=== PATIENT | female | born 1940 | race Caucasian/White ===

== ENCOUNTER 2019-04-18 08:56 | Emergency (ER) | payer MEDICARE, SELFPAY ==
[2019-04-18] VITALS (13 sets, daily range): BP systolic 129–186; BP diastolic 54–107; PULSE 59–70; RESP 12–18; TEMP 36.8; O2SAT 96–100
--- NOTE | ~2019-04-18 | CT_ITS ---
EXAMINATION: CT brain wo con EXAM DATE: 04/18/2019 12:23 INDICATION: High blood pressure, lightheadedness. TECHNIQUE: Spiral CT of the head was performed without contrast. Axial, coronal and sagittal images were reviewed. The dose-length product (DLP) for this examination was 605.33 mGy-cm. The exposure w as tailored according to patient size, and iterative reconstruction (ASIR) was used as additional dos e reduction technique. There is no prior study for comparison. FINDINGS: There is no acute intraparenchymal hemorrhage. No evidence of intraparenchymal brain mass lesion. No evidence of acute infarction. Please note that initial head CT has limited sensitivity f or small or acute infarctions. There is mild periventricular and subcortical hypodensity, nonspecific but probably related to small vessel ischemic disease. There is mild prominence of the sulci and v entricles related to cerebral atrophy. There is intracranial carotid arteriosclerosis. There are n o extra-axial collections. There is no mass effect or midline shift. The orbits are unremarkable. Soft tissue is unremarkable. Small amount of fluid in the right maxillary sinus with mild mucoperios teal thickening. IMPRESSION: 1. No acute intracranial findings. 2. Chronic age related findings. 3. Small amount of right maxillary mucoperiosteal thickening, fluid. Reviewed, dictated and finalized at location B. RATOR OPERATOR
--- NOTE | 2019-04-18 10:04 | ED.RECABL ---
HPI - Recheck/Abnormal Lab/Rx General Chief Complaint: Recheck/Abnormal Lab/Rx Stated Complaint: high blood pressure Time Seen by Provider: 04/18/19 10:01 Source: patient and RN notes reviewed Mode of arrival: ambulatory Limitations: no limitations History of Present Illness HPI narrative: Pt is a 79 y/o female presenting to the ED c/o HTN. Pt reports she has been experiencing HTN since last Thursday. Pt notes she normally has a BP of around 130 systolic, but states her BP this morning was 190 systolic. Pt states she does take medication for her BP and reports she takes it in the morning. Pt reports lightheadedness and frontal NEWTON described as pressure for 1 week, but denies nasal congestion, CP, SOB, rhinorrhea, or N/V. Pt states she has a Hx of allergies in which she has chronic post nasal drip, and notes she is taking Zyrtec and Singulair. Pt states she was instructed by her PCP to present to the ED. Pt notes she is has taken Tylenol for her NEWTON but notes it has not offered any relief. 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 Pt notes she has a Hx of stent placement 3 years ago, and notes she had a negative Echocardiogram 3 months ago. Initial visit (ago): week(s) (1) Description of abnormal result: BP 190 systolic this morning Associated symptoms: other (Lightheadedness; Frontal NEWTON) Related Data Home Medications Medication Instructions Recorded Confirmed albuterol sulfate 90 mcg/actuation 2 puff INHALATION Q4H PRN gm 01/11/19 aerosol inhaler aspirin 81 mg tablet,delayed 81 mg PO DAILY 01/11/19 release atenolol 50 mg tablet 50 mg PO DAILY 01/11/19 atorvastatin 40 mg tablet 40 mg PO DAILY 01/11/19 budesonide-formoterol HFA 160 2 puff INHALATION Q12H 01/11/19 mcg-4.5 mcg/actuation aerosol inhaler cetirizine 10 mg tablet 5 mg PO DAILY PRN 01/11/19 fluticasone propionate 50 See Rx Instructions NASAL DAILY 01/11/19 mcg/actuation nasal spray,suspension levothyroxine 137 mcg tablet 137 mcg PO DAILY 01/11/19 losartan 100 1 tablet PO DAILY 01/11/19 mg-hydrochlorothiazide 12.5 mg tablet montelukast 10 mg tablet 10 mg PO DAILY 01/11/19 potassium chloride 20 mEq 20 meq PO BID 01/11/19 tablet,extended release tiotropium bromide 1.25 2 puff INHALATION Q24H 01/11/19 mcg/actuation mist for inhalation Allergies Allergy/AdvReac Type Severity Reaction Status Date / Time alendronate sodium Allergy Unknown upset Verified 01/11/19 13:38 stomach erythromycin base Allergy Unknown Nausea Verified 01/11/19 13:38 Sulfa (Sulfonamide Allergy Unknown Pt does Verified 01/11/19 13:38 Antibiotics) not remember reaction Review of Systems Review of Systems: All systems reviewed & are unremarkable except as noted in HPI and below ENT: Denies nasal congestion and Denies other (Rhinorrhea) Cardiovascular: Cardiovascular: Denies chest pain and Reports lightheadedness Respiratory: Respiratory: Denies dyspnea Gastrointestinal: Gastrointestinal: Denies nausea and Denies vomiting Neurologic: Reports headache(s) (Frontal) [facility] Past Medical History Medical History Arthritis Asthma Bronchitis CAD (coronary artery disease) CVA (cerebral vascular accident) GERD (gastroesophageal reflux disease) History of angina HLD (hyperlipidemia) HTN (hypertension) Hypothyroid Myocardial infarction Surgical History Surgical History H/O cardiac catheterization H/O heart artery stent Family History Family History Father Family history of cardiovascular disease Mother Family history of cardiovascular disease Other Cerebrovascular accident Family history of allergic disorder Social History Social History Smoking status: Former smoker
--- NOTE | 2019-04-18 10:28 | ECG_ITS ---
Measurements Intervals [place] Rate: 65 P: 57 [place]: 171 QRS: 23 QRSD: 93 T: -19 QT: 397 QTc: 415 Interpretive Statements SINUS RHYTHM INFERIOR INFARCT, AGE INDETERMINATE BORDERLINE ST ABNORMALITY- ANTERIOR LEADS BASELINE ARTIFACT- I, II, AVR, AVL ABNORMAL ECG Electronically Signed On 04-19-2019 8:10:18 VERTICAL MILL OPERATOR by Nader Resendez D.O.
[2019-04-18 10:35] LABS: Basophils Percent Auto 0.4 % (0.2-1.2); Eosinophils Absolute Auto 0.5 K/mm3 (0-0.3); Eosinophils Percent Auto 6.6 % (0-4.4); Hematocrit 40.2 % (37.0-47.0); Hemoglobin 13.4 g/dL (12.0-15.0); Immature Granulocyte Absolute 0.02 K/mm3 (0.00-0.031); Immature Granulocyte Percent A 0.3 % (0-0.5); Lymphocytes Absolute Auto 1.57 K/mm3 (0.9-3.2); Lymphocytes Percent Auto 21.3 % (18.3-44.2); Mean Corpuscular HGB Conc 33.3 g/dl (32-36); Mean Corpuscular Hemoglobin 29.9 pg (26-34); Mean Corpuscular Volume 89.7 fl (80-100); Mean Platelet Volume 10.7 fl (7.4-10.4); Monocytes Absolute Auto 0.6 K/mm3 (0.1-0.6); Monocytes Percent Auto 8.4 % (2.6-8.5); Neutrophils Absolute Auto 4.7 K/mm3 (1.3-6.7); Platelet Count Result 242 k/mm3 (150-375); Red Blood Count 4.48 M/mm3 (4.2-5.4); Red Cell Distribution Width 12.8 % (11.5-14.5); White Blood Count 7.4 K/mm3 (4.5-10.0)
[2019-04-18 10:43] LABS: Alanine Aminotransferase 28 U/L (4-35); Albumin Level 4.2 g/dL (3.5-5.1); Alkaline Phosphatase 56 U/L (38-126); Aspartate Amino Transferase 35 U/L (14-36); Bilirubin,Total 0.8 mg/dL (0.2-1.3); Blood Urea Nitrogen 13 mg/dL (7-17); Calcium 10.3 mg/dL (8.4-10.2); Carbon Dioxide 27 mmol/L (22-30); Chloride 98 mmol/L (98-107); Estimated CRCL calculation 45 ml/min; Estimated Glomerular Filt Rate > 60; Glucose 106 mg/dL (65-105); Potassium 3.6 mmol/L (3.4-5.0); Sodium 137 mmol/L (137-145)
[2019-04-18] MEDS: KETOROLAC 15 MG/ML VIAL (*BKC) IV PUSH (11:00)
[2019-04-18] MEDS: SODIUM CHLORIDE 0.9% IV 500 ML 999 ML IV CONT (11:01)
--- NOTE | 2019-04-21 07:58 | PC.NURSE ---
LATE ENTRY This note is being entered to document information to the patient's record. The following information was omitted on 04/18/19, by Yvonne Marquez RN. NS stopped at 1100 by this RN.
== END 2019-04-18 13:55 | disposition home or self-care (01) ==
PROVIDERS: Emergency Provider General Practice; PCP Family Medicine
DX: I10 Essential (primary) hypertension (principal); Z95.5 Presence of coronary angioplasty implant and graft; Z79.82 Long term (current) use of aspirin; M19.90 Unspecified osteoarthritis, unspecified site; I25.10 Atherosclerotic heart disease of native coronary artery without angina pectoris; Z86.73 Personal history of transient ischemic attack (TIA), and cerebral infarction without residual deficits; K21.9 Gastro-esophageal reflux disease without esophagitis; E78.5 Hyperlipidemia, unspecified; E03.9 Hypothyroidism, unspecified; I25.2 Old myocardial infarction; Z87.891 Personal history of nicotine dependence; J32.9 Chronic sinusitis, unspecified; R94.31 Abnormal electrocardiogram [ECG] [EKG]
CPT/HCPCS: 36415; 70450; 80053; 85025; 93005; 96374; 96375; 99284; J1200; J1885; J7040

== ENCOUNTER 2019-11-24 09:57 | Outpatient (CLI) | payer MEDICARE, SELFPAY ==
--- NOTE | ~2019-11-24 | DEXA_ITS ---
Bone Density Report Name: Sharon Adair Age: 79 Sex: Female Ethnicity: White Date of : 1940 Indication: osteopenia; height loss; asthma or emphysema; Referring Provider: Eliud Horton Study: Bone densitometry was performed. Exam Date: November 24, 2019 Accession number: [id number] Bone Density: Region BMD T-score Z-score Classification AP Spine (L1-L4) 0.925 -1.1 1.4 Osteopenia Femoral Neck (Left) 0.661 -1.7 0.5 Osteopenia Total Hip (Left) 0.834 -0.9 1.1 Normal Total Hip Bilateral Avg 0.837 -0.8 1.1 Normal Femoral Neck (Right) 0.642 -1.9 0.3 Osteopenia Total Hip (Right) 0.839 -0.8 1.1 Normal World Health Organization criteria for BMD impression classify patients as: Normal (T-score at or above -1.0), Osteopenia (T-score between -1.0 and -2.5), or Osteoporosis (T-score at or below -2.5). 10-year Fracture Risk(1): Major Osteoporotic Fracture 14% Hip Fracture 3.4% Reported Risk Factors: [place] (), Neck BMD=0.642, BMI=30.1 (1) FRAX(R) Version 3.08. Fracture probability calculated for an untreated patient. Fracture probability may be lower if the patient has received treatment. Previous Exams: Region Exam Age BMD T-score BMD Change BMD Change Date g/cm2 vs Baseline vs Previous AP Spine(L1-L4) 11/24/2019 79 0.925 -1.1 -0.005(-0.5%)# -0.074(-7.4%)# 05/15/2017 77 0.998 -0.4 0.069(7.4%)# 0.005(0.5%)# 04/24/2015 75 0.994 -0.5 0.064(6.9%)# 0.031(3.2%)* 11/16/2012 72 0.963 -0.8 0.034(3.6%)# -0.014(-1.5%)# 04/16/2010 70 0.977 -0.6 0.048(5.1%)* 0.012(1.3%) 11/29/2007 67 0.965 -0.7 0.036(3.8%)* 0.037(4.0%)* 11/25/2005 65 0.928 -1.1 -0.002(-0.2%) 0.017(1.9%) 11/03/2003 63 0.911 -1.2 -0.019(-2.0%) -0.019(-2.0%) 09/06/2002 62 0.930 -1.1 Total Hip(Left) 11/24/2019 79 0.834 -0.9 0.062(8.0%)# -0.002(-0.3%)# 05/15/2017 77 0.836 -0.9 0.064(8.3%)# 0.008(0.9%)# 04/24/2015 75 0.829 -0.9 0.056(7.3%)# -0.058(-6.5%)* 11/16/2012 72 0.887 -0.5 0.114(14.8%)# 0.076(9.4%)# 04/16/2010 70 0.811 -1.1 0.038(4.9%)* 0.020(2.5%) 11/29/2007 67 0.791 -1.2 0.018(2.3%) -0.019(-2.4%) 11/25/2005 65 0.810 -1.1 0.037(4.8%)* 0.044(5.8%)* 11/03/2003 63 0.765 -1.4 -0.007(-0.9%) -0.007(-0.9%) 09/06/2002 62 0.772 -1.4 Total Hip(Right) 11/24/2019 79 0.839 -0.8 0.093(12.4%)# 0.029(3.6%)# 05/15/2017 77 0.810 -1.1 0.063(8.5%)# -0.022(-2.7%)# 04/24/2015 75 0.832 -0.9 0.085(11.4%)# -0.015(-1.7%) 11/16/2012 72 0.846 -0.8 0.100(13.4%)# 0.067(8.6%)# 04/16/2010 70 0.779 -1.3
--- NOTE | ~2019-11-24 | MM_ITS ---
EXAMINATION: MM screening [facility] BI w seamus HISTORY: Screening mammogram TECHNIQUE: Craniocaudal and mediolateral oblique 3-D tomosynthesis images were obtained and synthetic 2-D images were generated. CAD analysis was submitted and interpreted. COMPARISON: 05/15/2017, 05/01/2016, 12/15/2013 BREAST PARENCHYMAL COMPOSITION: The breasts are almost entirely fatty. FINDINGS: There is no evidence of suspicious mass, calcification, or architectural distortion to sugg est malignancy in either breast. There has been no suspicious interval change. IMPRESSION: 1. No mammographic evidence of malignancy. 2. Recommend routine screening mammography in one year. BI-RADS Category 1: Negative Reviewed, dictated and finalized at location A.
== END 2019-11-24 09:58 | disposition home or self-care (01) ==
LOC: ANHIMG 10:01
PROVIDERS: PCP Family Medicine; Visit Provider Family Medicine
DX: Z12.31 Encounter for screening mammogram for malignant neoplasm of breast (principal); M81.0 Age-related osteoporosis without current pathological fracture
CPT/HCPCS: 77063; 77067; 77080

== ENCOUNTER 2020-10-01 11:12 | Outpatient (CLI) | payer MEDICARE, SELFPAY ==
--- NOTE | ~2020-10-01 | XR_ITS ---
XR chest 2V DATE: 10/01/2020 14:44 INDICATION: Cough, congestion TECHNIQUE: PA and lateral views COMPARISON: 07/13/2016 portable AP chest FINDINGS: Cardiac megaly. No hilar or mediastinal enlargement. No pulmonary infiltrate or consolidati on, pleural effusion or pulmonary vascular congestion or pneumothorax. Diffuse osteopenia. There is thoracic kyphosis. There is mild loss of height and anterior wedging of some thoracic vertebrae, most pronounced at T7. Degenerative change of the lower thoracic spine is no isabel in particular. IMPRESSION: No active pulmonary disease Cardiomegaly, aortic atherosclerosis Osteopenia Reviewed, dictated and finalized at location A.
[2020-10-01 11:34] LABS: Basophils Percent Auto 0.4 % (0.2-1.2); Eosinophils Absolute Auto 0.7 K/mm3 (0-0.3); Eosinophils Percent Auto 7.1 % (0-4.4); Hematocrit 39.6 % (37.0-47.0); Hemoglobin 12.6 g/dL (12.0-15.0); Immature Granulocyte Absolute 0.04 K/mm3 (0.00-0.031); Immature Granulocyte Percent A 0.4 % (0-0.5); Lymphocytes Absolute Auto 1.44 K/mm3 (0.9-3.2); Lymphocytes Percent Auto 14.4 % (18.3-44.2); Mean Corpuscular HGB Conc 31.8 g/dl (32-36); Mean Corpuscular Hemoglobin 29.8 pg (26-34); Mean Corpuscular Volume 93.6 fl (80-100); Mean Platelet Volume 9.9 fl (7.4-10.4); Monocytes Absolute Auto 0.9 K/mm3 (0.1-0.6); Monocytes Percent Auto 8.8 % (2.6-8.5); Neutrophils Absolute Auto 6.9 K/mm3 (1.3-6.7); Neutrophils Percent Auto 68.9 % (45.5-73.1); Platelet Count Result 146 k/mm3 (150-375); Red Blood Count 4.23 M/mm3 (4.2-5.4); Red Cell Distribution Width 14.2 % (11.5-14.5)
== END 2020-10-01 11:13 | disposition home or self-care (01) ==
PROVIDERS: PCP Family Medicine; Visit Provider Family Medicine
DX: R05 Cough (principal); D72.829 Elevated white blood cell count, unspecified; I51.7 Cardiomegaly; I70.0 Atherosclerosis of aorta; M85.89 Other specified disorders of bone density and structure, multiple sites
CPT/HCPCS: 36415; 71046; 85025

== ENCOUNTER 2020-12-14 14:38 | Outpatient (CLI) | payer MEDICARE, SELFPAY ==
--- NOTE | ~2020-12-14 | MM_ITS ---
EXAMINATION: MM screening [facility] BI w seamus HISTORY: Screening mammogram TECHNIQUE: Craniocaudal and mediolateral oblique 3-D tomosynthesis images were obtained and synthetic 2-D images were generated. CAD analysis was submitted and interpreted. COMPARISON: 11/24/2019, 05/15/2017, 05/11/2016 by lateral digital screening mammogram examinations BREAST PARENCHYMAL COMPOSITION: The breasts are almost entirely fatty. FINDINGS: There is no evidence of suspicious mass, calcification, or architectural distortion to sugg est malignancy in either breast. There has been no suspicious interval change. IMPRESSION: 1. No mammographic evidence of malignancy. 2. Recommend routine screening mammography in one year. BI-RADS Category 1: Negative Reviewed, dictated and finalized at location A.
== END 2020-12-14 14:39 | disposition home or self-care (01) ==
LOC: ANHIMG 14:40
PROVIDERS: PCP Family Medicine; Visit Provider Family Medicine
DX: Z12.31 Encounter for screening mammogram for malignant neoplasm of breast (principal)
CPT/HCPCS: 77063; 77067

== ENCOUNTER 2022-01-30 13:52 | Emergency (ER) | payer MEDICARE, SELFPAY ==
[2022-01-30 14:02] VITALS: BP 151/99; PULSE 67; RESP 18; TEMP 36.7; O2SAT 100
--- NOTE | 2022-01-30 14:20 | ED.URI ---
HPI - URI/Sore Throat General Chief Complaint: Upper Respiratory Infection Stated Complaint: cough Time Seen by Provider: 01/30/22 14:20 Source: patient, RN notes reviewed and old records reviewed Mode of arrival: ambulatory Limitations: no limitations History of Present Illness HPI Narrative: 82-year-old female presents to the [facility] with complaints of a dry cough for a couple of days. Has been using her inhalers. States whenever she gets like this around [place] time the only thing that makes her better is steroids. RT has her inhaler and has been using it twice a day. Denies any chest pains or shortness or breath. She reports that her cough is very dry and feels like her asthma. Treatments prior to arrival: other (Inhaler) Related Data Home Medications Medication Instructions Recorded Confirmed albuterol sulfate 90 mcg/actuation 2 puff inhalation Q4H PRN 01/11/19 01/30/22 aerosol inhaler (ProAir HFA) Shortness Of Breath aspirin 81 mg tablet,delayed 81 mg PO DAILY 01/11/19 01/30/22 release atorvastatin 40 mg tablet 40 mg PO DAILY 01/11/19 01/30/22 cetirizine 10 mg tablet (Zyrtec) 5 mg PO DAILY PRN Allergy Symptoms 01/11/19 01/30/22 fluticasone propionate 50 See Rx Instructions intranasal 01/11/19 01/30/22 mcg/actuation nasal DAILY spray,suspension montelukast 10 mg tablet 10 mg PO DAILY 01/11/19 01/30/22 potassium chloride 20 mEq 20 meq PO BID 01/11/19 01/30/22 tablet,extended release fluticasone fur. 100 mcg-umeclid 1 inh inhalation DAILY 09/26/20 01/30/22 62.5 mcg-vilant 25 mcg inhalat.powder (Trelegy Ellipta) Allergies Allergy/AdvReac Type Severity Reaction Status Date / Time alendronate sodium Allergy Unknown upset Verified 11/12/21 14:12 stomach erythromycin base Allergy Unknown Nausea Verified 11/12/21 14:12 Sulfa (Sulfonamide Allergy Unknown Pt does Verified 11/12/21 14:12 Antibiotics) not remember reaction Review of Systems Review of Systems: All systems reviewed & are unremarkable except as noted in HPI and below Constitutional: Constitutional: Reports no additional constitutional complaints Eyes: Eyes: Reports no additional eye complaints ENT: Reports system reviewed and no additional complaints, except as documented Cardiovascular: Cardiovascular: Reports no additional cardiovascular complaints, Denies chest pain and Denies dyspnea Respiratory: Respiratory: Reports as per HPI, Denies chest congestion, Reports cough, Denies dyspnea and Denies wheezing Gastrointestinal: Gastrointestinal: Reports no additional gastrointestinal complaints, Denies abdominal pain, Denies nausea and Denies vomiting Musculoskeletal: Musculoskeletal: Reports no additional musculoskeletal complaints Integumentary/Breasts: Skin/Breast: Reports system reviewed and no additional complaints, except as docu Neurologic: Reports system reviewed and no additional complaints, except as documented Psychiatric: Psychiatric: Reports no additional psychiatric complaints Allergic/Immunologic: Allergic/Immunologic: Reports no additional allergic/immunologic complaints PMFSH Past Medical History Medical History Arthritis Asthma Bronchitis CAD (coronary artery disease) CVA (cerebral vascular accident) GERD (gastroesophageal reflux disease) History of angina HLD (hyperlipidemia) HTN (hypertension) Hypothyroid Myocardial infarction Surgical History Surgical History H/O cardiac catheterization H/O heart artery stent Family History Family History Father Family history of cardiovascular disease Mother Family history of cardiovascular disease Other Cerebrovascular accident Family history of allergic disorder Social History Social History Smoking status: Never s
== END 2022-01-30 14:35 | disposition home or self-care (01) ==
PROVIDERS: Emergency Provider Nurse Practitioner; PCP Physician Assistant
DX: J40 Bronchitis, not specified as acute or chronic (principal); M19.90 Unspecified osteoarthritis, unspecified site; K21.9 Gastro-esophageal reflux disease without esophagitis; I25.110 Atherosclerotic heart disease of native coronary artery with unstable angina pectoris; E78.5 Hyperlipidemia, unspecified; I10 Essential (primary) hypertension; E03.9 Hypothyroidism, unspecified; I25.2 Old myocardial infarction; J45.909 Unspecified asthma, uncomplicated; Z95.5 Presence of coronary angioplasty implant and graft; Z79.82 Long term (current) use of aspirin
CPT/HCPCS: 99213; G0463

== ENCOUNTER 2022-02-08 23:00 | Emergency (ER) | payer MEDICARE, SELFPAY ==
--- NOTE | ~2022-02-08 | XR_ITS ---
EXAMINATION: XR chest 2V DATE: 02/08/2022 23:58 INDICATION: Right axillary pain TECHNIQUE: PA and lateral views of the chest are obtained. COMPARISON: 10/01/2020 FINDINGS: There is mild atelectasis of the left lung base. No pleural effusion or pneumothorax. The c ardiomediastinal silhouette is normal. There is moderate thoracic spondylosis. IMPRESSION: 1. Mild atelectasis of the left lung base. Reviewed, dictated and finalized at location A. ING TECHNICIAN
[2022-02-08 23:11] VITALS: BP 155/56; PULSE 68; RESP 16; TEMP 36.9; O2SAT 99
--- NOTE | 2022-02-08 23:11 | ECG_ITS ---
Measurements Intervals [place] Rate: 66 P: 40 NM: 189 QRS: -1 QRSD: 86 T: -20 QT: 375 QTc: 395 Interpretive Statements SINUS RHYTHM INFERIOR MYOCARDIAL INFARCTION ,OLD COMPARED TO ECG 04/18/2019 11:25:23 NO SIGNIFICANT CHANGES Electronically Signed On 02-09-2022 14:43:23 BUSINESS AREA DIRECTOR by Hilary Resendiz M.D.
[2022-02-08 23:22] LABS: Basophils Absolute Auto 0.1 K/mm3 (0.0-0.1); Basophils Percent Auto 0.6 % (0.2-1.2); Eosinophils Absolute Auto 0.6 K/mm3 (0-0.3); Eosinophils Percent Auto 4.4 % (0-4.4); Hematocrit 39.7 % (37.0-47.0); Hemoglobin 12.9 g/dL (12.0-15.0); Immature Granulocyte Absolute 0.12 K/mm3 (0.00-0.031); Immature Granulocyte Percent A 0.8 % (0-0.5); Lymphocytes Absolute Auto 2.71 K/mm3 (0.9-3.2); Lymphocytes Percent Auto 18.8 % (18.3-44.2); Mean Corpuscular HGB Conc 32.5 g/dl (32-36); Mean Corpuscular Hemoglobin 30.2 pg (26-34); Mean Platelet Volume 10.2 fl (7.4-10.4); Monocytes Absolute Auto 1.4 K/mm3 (0.1-0.6); Monocytes Percent Auto 9.9 % (2.6-8.5); Neutrophils Absolute Auto 9.4 K/mm3 (1.3-6.7); Neutrophils Percent Auto 65.5 % (45.5-73.1); Platelet Count Result 235 k/mm3 (150-375); Red Blood Count 4.27 M/mm3 (4.2-5.4); Red Cell Distribution Width 13.6 % (11.5-14.5); White Blood Count 14.4 K/mm3 (4.5-10.0)
[2022-02-08 23:31] LABS: Alanine Aminotransferase 25 U/L (6-35); Alkaline Phosphatase 80 U/L (38-126); Anion Gap 6 mmol/L (8-16); Aspartate Amino Transferase 27 U/L (14-36); Bilirubin,Total 0.5 mg/dL (0.2-1.3); Blood Urea Nitrogen 24 mg/dL (7-17); Calcium 8.4 mg/dL (8.4-10.2); Carbon Dioxide 29 mmol/L (22-30); Chloride 103 mmol/L (98-107); Estimated CRCL calculation 24 ml/min; Estimated Glomerular Filt Rate 31; Glucose 121 mg/dL (65-110); Lipase 52 U/L (23-300); Potassium 3.7 mmol/L (3.4-5.0); Sodium 138 mmol/L (137-145)
[2022-02-08 23:32] LABS: Prothrombin Time 12.9 Seconds (11.1-14.7)
[2022-02-08 23:33] LABS: Partial Thromboplastin Time 28.9 SECONDS (22.3-36.8)
[2022-02-08 23:43] LABS: Troponin I < 0.012 ng/mL (0.000-0.034)
[2022-02-09] VITALS (19 sets, daily range): BP systolic 119–146; BP diastolic 51–120; PULSE 57–63; RESP 14–22; O2SAT 96–100
[2022-02-09] MEDS: KETOROLAC 15 MG/ML VIAL (*BKC) IV PUSH (01:55)
[2022-02-09] MEDS: SODIUM CHLORIDE 0.9% IV 1,000 ML 999 ML IV CONT (02:50)
--- NOTE | 2022-02-09 03:08 | ED.CHESTPAIN ---
HPI - Chest Pain General Chief Complaint: Chest Pain Stated Complaint: right sided chest pain Time Seen by Provider: 02/09/22 01:36 History of Present Illness HPI narrative: Patient is an 82-year-old female who presents ER with right-sided chest pain. Its lateral to the breast. Its worse with physical moving, laughing, coughing, and deep breaths. She had bronchitis recently. No fevers or chills or sweats. No exertional chest discomfort. No association with eating or drinking. No lower extremity swelling or cramping. No long distance travel. No hormone replacement. No racing the heart. Related Data Home Medications Medication Instructions Recorded Confirmed albuterol sulfate 90 mcg/actuation 2 puff inhalation Q4H PRN 01/11/19 01/30/22 aerosol inhaler (ProAir HFA) Shortness Of Breath aspirin 81 mg tablet,delayed 81 mg PO DAILY 01/11/19 01/30/22 release atorvastatin 40 mg tablet 40 mg PO DAILY 01/11/19 01/30/22 cetirizine 10 mg tablet (Zyrtec) 5 mg PO DAILY PRN Allergy Symptoms 01/11/19 01/30/22 fluticasone propionate 50 See Rx Instructions intranasal 01/11/19 01/30/22 mcg/actuation nasal DAILY spray,suspension montelukast 10 mg tablet 10 mg PO DAILY 01/11/19 01/30/22 potassium chloride 20 mEq 20 meq PO BID 01/11/19 01/30/22 tablet,extended release fluticasone fur. 100 mcg-umeclid 1 inh inhalation DAILY 09/26/20 01/30/22 62.5 mcg-vilant 25 mcg inhalat.powder (Trelegy Ellipta) Allergies Allergy/AdvReac Type Severity Reaction Status Date / Time alendronate sodium Allergy Unknown upset Verified 11/12/21 14:12 stomach erythromycin base Allergy Unknown Nausea Verified 11/12/21 14:12 Sulfa (Sulfonamide Allergy Unknown Pt does Verified 11/12/21 14:12 Antibiotics) not remember reaction Review of Systems Review of Systems: All systems reviewed & are unremarkable except as noted in HPI and below Constitutional: Constitutional: Denies chills, Denies fatigue and Denies fever(s) ENT: Denies nasal congestion and Denies sore throat Cardiovascular: Cardiovascular: Reports chest pain, Denies rapid heart rate and Denies radiating jaw, neck or arm pain Respiratory: Respiratory: Reports cough, Denies dyspnea and Denies wheezing Gastrointestinal: Gastrointestinal: Denies abdominal pain, Denies nausea and Denies vomiting PMFSH Past Medical History Medical History Arthritis Asthma Bronchitis CAD (coronary artery disease) CVA (cerebral vascular accident) GERD (gastroesophageal reflux disease) History of angina HLD (hyperlipidemia) HTN (hypertension) Hypothyroid Myocardial infarction Surgical History Surgical History H/O cardiac catheterization H/O heart artery stent Family History Family History Father Family history of cardiovascular disease Mother Family history of cardiovascular disease Other Cerebrovascular accident Family history of allergic disorder Social History Social History Smoking status: Never smoker Alcohol intake: current Alcohol use details: occasionally Exam Narrative: GENERAL: Well-appearing, well-nourished, and in no acute distress. HEAD: Normocephalic, atraumatic. EYES: PERRL and EOMI. ENT: Mucous membranes moist. CHEST: Clear to auscultation. No respiratory distress. Very tender palpation right chest wall lateral to the breast but not in the mid-axillary Line. HEART: Regular rate and rhythm. Normal peripheral pulses. ABDOMEN: Soft, nontender, nondistended. EXTREMITIES: Normal range of motion. No edema. SKIN: Warm, dry, no rash. NEURO: Alert and oriented x3. PSYCH: Normal mood and affect. Course Course Emergency Course: Symptoms resolved with Toradol. Discussed lab findings and imaging/EKG. Recommend naproxen twi
[2022-02-09 03:09] LABS: Troponin I < 0.012 ng/mL (0.000-0.034)
== END 2022-02-09 05:35 | disposition home or self-care (01) ==
PROVIDERS: Emergency Provider Emergency Medicine; PCP Physician Assistant
DX: R09.1 Pleurisy (principal); J45.909 Unspecified asthma, uncomplicated; I25.10 Atherosclerotic heart disease of native coronary artery without angina pectoris; E78.5 Hyperlipidemia, unspecified; I10 Essential (primary) hypertension; E03.9 Hypothyroidism, unspecified; I25.2 Old myocardial infarction; M19.90 Unspecified osteoarthritis, unspecified site; Z86.73 Personal history of transient ischemic attack (TIA), and cerebral infarction without residual deficits; Z79.82 Long term (current) use of aspirin; Z95.5 Presence of coronary angioplasty implant and graft; R94.31 Abnormal electrocardiogram [ECG] [EKG]
CPT/HCPCS: 36415; 71046; 80053; 83690; 84484; 85025; 85610; 85730; 93005; 96361; 96374; 99284; J1885; J7030

== ENCOUNTER 2022-06-24 15:00 | Outpatient (CLI) | payer MEDICARE, SELFPAY ==
--- NOTE | ~2022-06-24 | DEXA_ITS ---
Bone Density Report Name: KALEIGH VARGAS Age: 82 Sex: Female Ethnicity: White Date of : 1940 Indication: osteopenia; height loss; postmenopausal Referring Provider: BRAYDON LAFLEUR Study: Bone densitometry was performed. Exam Date: June 24, 2022 Accession number: [id number] Bone Density: Region BMD T-score Z-score Classification AP Spine(L1-L4) 0.962 -0.8 1.9 Normal Femoral Neck (Left) 0.558 -2.6 -0.3 Osteoporosis Total Hip (Left) 0.751 -1.6 0.5 Osteopenia Femoral Neck (Right) 0.631 -2.0 0.4 Osteopenia Total Hip (Right) 0.790 -1.2 0.8 Osteopenia Total Hip Mean 0.771 -1.4 0.7 Osteopenia World Health Organization criteria for BMD impression classify patients as: Normal (T-score at or above -1.0), Osteopenia (T-score between -1.0 and -2.5), or Osteoporosis (T-score at or below -2.5). 10-year Fracture Risk: FRAX not reported because: Some T-score for Spine Total or Hip Total or Femoral Neck at or below -2.5 Previous Exams: Region Exam Age BMD T-score BMD Change BMD Change Date g/cm2 vs Baseline vs Previous AP Spine (L1-L4) 06/24/2022 82 0.962 -0.8 -0.001 (-0.1%) 0.037 (4.1%)# 11/24/2019 79 0.925 -1.1 -0.038 (-4.0%) -0.074 (-7.4%) 05/15/2017 77 0.998 -0.4 0.035 (3.7%)# 0.005 (0.5%)# 04/24/2015 75 0.994 -0.5 0.031 (3.2%)* 0.031 (3.2%)* 11/16/2012 72 0.963 -0.8 Total Hip(Left) 06/24/2022 82 0.751 -1.6 -0.135 (-15.3% -0.083 (-10.0% 11/24/2019 79 0.834 -0.9 -0.052 (-5.9%) -0.002 (-0.3%) 05/15/2017 77 0.836 -0.9 -0.050 (-5.7%) 0.008 (0.9%)# 04/24/2015 75 0.829 -0.9 -0.058 (-6.5%) -0.058 (-6.5%) 11/16/2012 72 0.887 -0.5 Total Hip(Right) 06/24/2022 82 0.790 -1.2 -0.056 (-6.6%) -0.049 (-5.8%) 11/24/2019 79 0.839 -0.8 -0.007 (-0.8%) 0.029 (3.6%)# 05/15/2017 77 0.810 -1.1 -0.037 (-4.3%) -0.022 (-2.7%) 04/24/2015 75 0.832 -0.9 -0.015 (-1.7%) -0.015 (-1.7%) 11/16/2012 72 0.846 -0.8 *Denotes significance at 95% confidence level, LSC for AP Spine = 0.022 g/cm2, LSC for Total Hip = 0.027 g/cm2 # Denotes dissimilar scan types or analysis methods Clinical Information Provided by Patient: Has used the following medications: Vitamin D, Calcium Patient maximum height was 64 Menopause Age: 54 Onset of menses at age 14 Number of children 2 Impression: The patient has osteoporosis, based on the Left Femoral Neck T-score. No significant bone lo
--- NOTE | ~2022-06-24 | MM_ITS ---
EXAMINATION: MM screening [facility] BI w [place] HISTORY: Screening mammogram TECHNIQUE: Craniocaudal and mediolateral oblique 3-D tomosynthesis images were obtained and synthetic 2-D images were generated. CAD analysis was submitted and interpreted. COMPARISON: 12/14/2020, 11/24/2019, 05/15/2017 BREAST PARENCHYMAL COMPOSITION: The breasts are almost entirely fatty. FINDINGS: No suspicious mass, calcification, or architectural distortion are identified in either sonali ast to suggest malignancy. There has been no suspicious interval change. IMPRESSION: 1. No mammographic evidence of malignancy. 2. Recommend routine screening mammography while the patient remains in good health. BI-RADS Category 1: Negative Reviewed, dictated and finalized at location A. IMPRESSION: 1. No mammographic evidence of malignancy. 2. Recommend routine screening mammography while the patient remains in good he alth. BI-RADS Category 1: Negative
== END 2022-06-24 15:01 | disposition home or self-care (01) ==
PROVIDERS: PCP Emergency Medicine; Visit Provider Physician Assistant
DX: Z12.31 Encounter for screening mammogram for malignant neoplasm of breast (principal); M81.0 Age-related osteoporosis without current pathological fracture; M85.89 Other specified disorders of bone density and structure, multiple sites
CPT/HCPCS: 77063; 77067; 77080

== ENCOUNTER 2023-08-04 10:42 | Outpatient (CLI) | payer MEDICARE, SELFPAY ==
[2023-08-04 13:33] LABS: Free T4 Free Thyroxine 1.17 ng/mL (0.78-2.19)
[2023-08-04 13:44] LABS: Thyroid Stimulating Hormone 0.753 uIU/mL (0.465-4.680)
[2023-08-04 13:55] LABS: Albumin Level 4.2 g/dL (3.5-5.1); Anion Gap 8 mmol/L (4-12); Blood Urea Nitrogen 27 mg/dL (7-17); Calcium 9.4 mg/dL (8.4-10.2); Carbon Dioxide 28 mmol/L (22-30); Chloride 105 mmol/L (98-107); Estimated Glomerular Filt Rate 24; Glucose 75 mg/dL (65-110); Phosphorus 3.8 mg/dL (2.5-4.5); Potassium 3.8 mmol/L (3.4-5.0); Sodium 141 mmol/L (137-145)
[2023-08-04 13:59] LABS: Hemoglobin A1C 5.5 % (<5.7)
== END 2023-08-04 10:43 | disposition home or self-care (01) ==
LOC: ANHGOSHLAB 10:44
PROVIDERS: PCP Emergency Medicine; Visit Provider Nurse Practitioner Family
DX: E03.9 Hypothyroidism, unspecified (principal); N18.30 Chronic kidney disease, stage 3 unspecified; I12.9 Hypertensive chronic kidney disease with stage 1 through stage 4 chronic kidney disease, or unspecified chronic kidney disease; R73.03 Prediabetes
CPT/HCPCS: 36415; 80069; 83036; 84439; 84443

== ENCOUNTER 2023-09-11 09:13 | Outpatient (CLI) | payer MEDICARE, SELFPAY ==
--- NOTE | ~2023-09-11 | US_ITS ---
EXAMINATION: US carotid duplex BI DATE: 09/11/2023 10:09 INDICATION: Vertigo, dizziness, lightheadedness and giddiness. TECHNIQUE: Grayscale, color Doppler, and pulsed Doppler images of the cervical carotid arteries were obtained. The degree of vessel stenosis is placed in one of the following categories: normal, <50%, 5 0-69%, >=70% but less than near-occlusion, near-occlusion, or total occlusion. Note that percent sten osis relative to normal distal artery lumen diameter is indirectly measured from velocity measurement s as described by Lionel, et al. Radiology 2003; 229:340-346. COMPARISON: None. FINDINGS: RIGHT: The right common carotid artery (CCA) peak systolic velocity (PSV) is 73 cm/s. The right internal car otid artery (ICA) PSV is 70 cm/s. The right ICA end-diastolic velocity (EDV) is 6 cm/s. The right ICA /CCA PSV ratio is 1.1. Grayscale and color Doppler images yield an estimate of <50% diameter reductio n from plaque in the ICA. The external carotid artery (ECA) PSV is 100 cm/s. There is antegrade flow in the right vertebral artery. LEFT: The left CCA PSV is 98 cm/s. The left ICA PSV is 109 cm/s. The left ICA EDV is 26 cm/s. The left ICA/ CCA PSV ratio is 1.1. Grayscale and color Doppler images yield an estimate of <50% diameter reduction from plaque in the ICA. The ECA PSV is 184 cm/s. There is antegrade flow in the left vertebral arter y. IMPRESSION: 1. <50% stenosis in the right internal carotid artery. 2. <50% stenosis in the left internal carotid artery. Reviewed, dictated and finalized at location A.
== END 2023-09-11 09:14 | disposition home or self-care (01) ==
LOC: ANHIMG 09:14
PROVIDERS: PCP Emergency Medicine; Visit Provider Emergency Medicine
DX: I65.23 Occlusion and stenosis of bilateral carotid arteries (principal)
CPT/HCPCS: 93880

== ENCOUNTER 2023-09-28 13:28 | Outpatient (CLI) | payer MEDICARE, SELFPAY ==
--- NOTE | ~2023-09-28 | CT_ITS ---
Non-contrast Head CT History: Headache, lightheadedness Technique: Axial non-contrast imaging of the brain was performed. Dose reduction technique was used on this scan by utilizing automated exposure control and iterative reconstruction technique. The dose -length product (DLP) was 605.33 mGy-cm. Findings: There is no evidence of intracranial hemorrhage, mass lesion, or acute infarct. Brain par enchyma appears normal. The ventricles and subarachnoid spaces are normal in size. The calvarium ap pears normal. The visualized paranasal sinuses and mastoid air cells are clear. Impression: No significant abnormality seen. Reviewed, dictated and finalized at location . Impression: No significant abnormality seen.
== END 2023-09-28 13:29 | disposition home or self-care (01) ==
PROVIDERS: PCP Emergency Medicine; Visit Provider Student in an Organized Health Care Education/Training Program
DX: R42 Dizziness and giddiness (principal); R51.9 Headache, unspecified
CPT/HCPCS: 70450

== ENCOUNTER 2023-10-07 13:58 | Outpatient (CLI) | payer MEDICARE, SELFPAY ==
--- NOTE | 2023-10-12 13:18 | WPDHOLTEREM ---
Holter/Event Monitor Holter/Event Monitor Date of procedure: 10/12/23 Holter/Event Procedure: 24 Hr Holter Monitor Diagnosis: Palpitations Indications: Palpitation Image/Tracing Quality: Favorable Finding: The basic cardiac rhythm is sinus with normal NM QRS and QT intervals. The heart rate varies from a minimum of 44 to a maximum of 85 with a max with an average heart rate of 58. There were no significant pauses identified there were no abnormalities of AV conduction observed. The longest RR interval seen was 2.0 seconds. Supraventricular ectopic activity consisted of occasional PACs occurring less than 1% of the complexes. There were no runs of supraventricular tachyarrhythmias in the was no evidence of atrial fibrillation. Ventricular ectopic activity was also infrequent consisting of single PVCs occurring with a burden of 0.1%. There were no ventricular couplets or runs. The patient had 1 diary entry of palpitations at 11:30 p.m. which correlates with normal sinus rhythm. Conclusion: Essentially unremarkable 24 hour Holter with sinus rhythm and very infrequent atrial and ventricular ectopics Jake Oswald MD [facility]
== END 2023-10-07 13:59 | disposition home or self-care (01) ==
LOC: ANHCARD 13:59
PROVIDERS: PCP Emergency Medicine; Visit Provider Emergency Medicine
DX: R00.2 Palpitations (principal); R42 Dizziness and giddiness
CPT/HCPCS: 93225; 93226

== ENCOUNTER 2023-11-23 11:15 | Outpatient (CLI) | payer MEDICARE, SELFPAY ==
--- NOTE | ~2023-11-23 | US_ITS ---
EXAMINATION: US renal BI DATE: 11/23/2023 12:12 INDICATION: N18.32 - Chronic kidney disease, stage 3b TECHNIQUE: Multiple grayscale and Doppler ultrasound images of the kidneys were obtained. COMPARISON: Ultrasound gallbladder 03/28/2008. FINDINGS: The right kidney measures 9.1 x 4.0 x 4.4 cm. The left kidney measures 8.8 x 4.0 x 4.7 cm. The kidney s demonstrate normal parenchymal echogenicity. There is mild right pelviectasis and proximal ureterec tasis. The bladder is partially distended. Bilateral ureteral jets visualized. IMPRESSION: Mild right hydronephrosis. Reviewed, dictated and finalized at location K. IMPRESSION: Mild right hydronephrosis.
[2023-11-23 12:43] LABS: Hematocrit 41.5 % (37.0-47.0); Hemoglobin 13.3 g/dL (12.0-15.0); Mean Corpuscular Hemoglobin 28.9 pg (26-34); Mean Platelet Volume 10.4 fl (7.4-10.4); Platelet Count Result 261 k/mm3 (150-375); Red Blood Count 4.61 M/mm3 (4.2-5.4); Red Cell Distribution Width 13.5 % (11.5-14.5)
[2023-11-23 12:53] LABS: Albumin Level 4.6 g/dL (3.5-5.1); Anion Gap 9 mmol/L (4-12); Blood Urea Nitrogen 16 mg/dL (7-17); Calcium 8.2 mg/dL (8.4-10.2); Carbon Dioxide 26 mmol/L (22-30); Chloride 103 mmol/L (98-107); Creatine Kinase 94 U/L (30-135); Estimated Glomerular Filt Rate 43; Glucose 92 mg/dL (65-110); Phosphorus 3.3 mg/dL (2.5-4.5); Potassium 3.8 mmol/L (3.4-5.0); Sodium 138 mmol/L (137-145)
[2023-11-23 13:00] LABS: Complement C3 115 mg/dL (88-165)
[2023-11-23 13:02] LABS: Creatinine Urine 33.8 mg/dL; Total Protein Urine Random 16 mg/dL; Ur Ttl Prot Creatinine Ratio 0.47 mg/mg (0-0.20)
[2023-11-23 13:05] LABS: Parathyroid Intact 222.4 pg/mL (14.5-75.2)
[2023-11-23 13:07] LABS: Add Urine Microscopic? YES; Appearance Urine Clear (Clear); Bacteria Urine None Seen /hpf; Bilirubin Urine Negative (Negative); Blood Urine Negative (Negative); Color Urine Yellow (Yellow); Glucose Urine UA Negative (Negative); Ketones Urine Negative (Negative); Leukocyte Esterase Ur Trace LEU/UL (Negative); Need Manual Microscopic Reviewed; Nitrate Urine Negative (Negative); Non Pathogenic Casts 0-2; Protein Urine Negative (Negative); RBC Urine 0-2 /hpf (0-2); Specific Grav Ur 1.004 (1.001-1.035); Squamous Epithelial Cell Urine None Seen /hpf (Few); Urobilinogen Urine 0.2 mg/dL (<2.0); WBC Urine 0-5 /hpf (0-3); pH Urine 6.5 (5.0-9.0)
[2023-11-23 14:27] LABS: Erythrocyte Sedimentation Rate 26 mm/hr (0-20)
[2023-11-25 11:38] LABS: Kappa\\Lambda Light Chains 1.65 (0.26-1.65); Lambda Light Chain 28.9 mg/L (5.7-26.3)
[2023-11-25 14:54] LABS: Complement Total CH50 58 U/mL (31-60)
[2023-11-26 11:33] LABS: Anti Nuclear Antibody Pattern Nuclear, Homogeneous
[2023-11-26 17:09] LABS: Immunofixation, Serum Normal pattern.
== END 2023-11-23 11:16 | disposition home or self-care (01) ==
PROVIDERS: PCP Emergency Medicine; Visit Provider Internal Medicine Nephrology
DX: I07.1 Rheumatic tricuspid insufficiency (principal); I12.9 Hypertensive chronic kidney disease with stage 1 through stage 4 chronic kidney disease, or unspecified chronic kidney disease; N18.32 Chronic kidney disease, stage 3b
CPT/HCPCS: 36415; 76775; 80069; 81001; 82550; 82570; 83883; 83970; 84156; 85027; 85652; 86038; 86039; 86160; 86162; 86334

== ENCOUNTER 2023-11-26 13:35 | Outpatient (CLI) | payer MEDICARE, SELFPAY ==
[2023-11-26 14:31] LABS: Total Volume 24 Hour Urine 1100 ml
[2023-11-26 14:42] LABS: Urea Nitrogen 24 Hour Urine 3.7 G/DAY (12-20)
[2023-11-26 14:50] LABS: Sodium 24 Hour Urine 91 mmol/day (40-220); Sodium Urine Random 83 meq/L
[2023-11-29 01:33] LABS: Creat 24 Hr 0.75 g/24 h (0.50-2.15); Pro/Creat Ratio 173 mg/g creat (<150); Pro/Creat Ratio mg/mg 0.173 (<0.150); Protein,total, 24 Hr Ur 130 mg/24 h (<150)
[2023-12-03 11:58] LABS: Albumin 30 %
== END 2023-11-26 13:36 | disposition home or self-care (01) ==
LOC: ANHLAB 13:39
PROVIDERS: PCP Emergency Medicine; Visit Provider Internal Medicine Nephrology
DX: I12.9 Hypertensive chronic kidney disease with stage 1 through stage 4 chronic kidney disease, or unspecified chronic kidney disease (principal); N18.32 Chronic kidney disease, stage 3b
CPT/HCPCS: 81050; 84300; 84540; 86335

== ENCOUNTER 2023-12-10 12:35 | Outpatient (CLI) | payer MEDICARE, SELFPAY ==
--- NOTE | ~2023-12-10 | NM_ITS ---
EXAMINATION: MAURIZIO yan renal scan DATE: 12/10/2023 14:01 INDICATION: Hydronephrosis TECHNIQUE: 8 mCi Tc-99m MAG3 was administered IV. 40 mg furosemide was administered IV immediately a fterward. The patient was scanned in the supine position. A posterior abdominal radionuclide angiogra m was obtained. A subsequent time course of static images of the kidneys, ureters, and bladder was ob tained. COMPARISON: None FINDINGS: The posterior abdominal radionuclide angiogram and sequential static images show normal size, positio n, and morphology of the kidneys. Peak renal parenchymal uptake was 1.8 min in left kidney and 1.9 mi n in right kidney (normal peak 3-5 minutes). The relative early renal uptake was 48% on the left and 52% on the right (<40% is abnormal). No abnormalities of the ureters or bladder are seen. T1/2 for clearance of activity from the left kidney and proximal collecting system was 5.7 minutes. T1/2 for clearance of activity from the right kidney and proximal collecting system was 5.6 minutes. Notes on interpretation: T1/2 <10 minutes is normal, 10-15 minutes is low grade obstruction of questi onable clinical significance, 15-20 minutes is partial obstruction that is likely clinically signific ant, >20 minutes is high grade obstruction. Note that false positives may be seen with supine positio kamran, dehydration, severely dilated nonobstructed kidney, atonic collecting system, poor renal functi on, and chronic furosemide use. IMPRESSION: 1. Symmetric kidney function. 2. No delay in contrast clearance from either kidney to suggest fixed obstruction. Reviewed, dictated and finalized at location A. IMPRESSION: 1. Symmetric kidney function. 2. No delay in contrast clearance from either kidney to suggest fixed obstruct ion.
== END 2023-12-10 12:36 | disposition home or self-care (01) ==
LOC: ANHIMG 12:37
PROVIDERS: PCP Emergency Medicine; Visit Provider Internal Medicine Nephrology
DX: N13.30 Unspecified hydronephrosis (principal)
CPT/HCPCS: 78708; A9562; J1940

== ENCOUNTER 2024-10-17 14:28 | Outpatient (CLI) | payer MEDICARE, SELFPAY ==
--- NOTE | ~2024-10-17 | DEXA_ITS ---
Bone Density Report Name: KALEIGH VARGAS Age: 84 Sex: Female Ethnicity: White Date of : 1940 Indication: osteopenia; height loss; Referring Provider: SAMEERA DAIGLE Study: Bone densitometry was performed. Exam Date: October 17, 2024 Accession number: [id number] Bone Density: Region BMD T-score Z-score Classification AP Spine(L1-L4) 0.933 -1.0 1.7 Normal Femoral Neck (Left) 0.571 -2.5 -0.1 Osteoporosis Total Hip (Left) 0.783 -1.3 0.9 Osteopenia Femoral Neck (Right) 0.641 -1.9 0.6 Osteopenia Total Hip (Right) 0.767 -1.4 0.8 Osteopenia Total Hip Mean 0.775 -1.4 0.9 Osteopenia World Health Organization criteria for BMD impression classify patients as: Normal (T-score at or above -1.0), Osteopenia (T-score between -1.0 and -2.5), or Osteoporosis (T-score at or below -2.5). 10-year Fracture Risk: FRAX not reported because: Some T-score for Spine Total or Hip Total or Femoral Neck at or below -2.5 Previous Exams: Region Exam Age BMD T-score BMD Change BMD Change Date g/cm2 vs Baseline vs Previous AP Spine (L1-L4) 10/17/2024 84 0.933 -1.0 -0.030 (-3.1%) -0.029 (-3.0%) 06/24/2022 82 0.962 -0.8 -0.001 (-0.1%) 0.037 (4.1%)# 11/24/2019 79 0.925 -1.1 -0.038 (-4.0%) -0.074 (-7.4%) 05/15/2017 77 0.998 -0.4 0.035 (3.7%)# 0.005 (0.5%)# 04/24/2015 75 0.994 -0.5 0.031 (3.2%)* 0.031 (3.2%)* 11/16/2012 72 0.963 -0.8 Total Hip(Left) 10/17/2024 84 0.783 -1.3 -0.103 (-11.7% 0.032 (4.3%)* 06/24/2022 82 0.751 -1.6 -0.135 (-15.3% -0.083 (-10.0% 11/24/2019 79 0.834 -0.9 -0.052 (-5.9%) -0.002 (-0.3%) 05/15/2017 77 0.836 -0.9 -0.050 (-5.7%) 0.008 (0.9%)# 04/24/2015 75 0.829 -0.9 -0.058 (-6.5%) -0.058 (-6.5%) 11/16/2012 72 0.887 -0.5 Total Hip(Right) 10/17/2024 84 0.767 -1.4 -0.079 (-9.3%) -0.023 (-2.9%) 06/24/2022 82 0.790 -1.2 -0.056 (-6.6%) -0.049 (-5.8%) 11/24/2019 79 0.839 -0.8 -0.007 (-0.8%) 0.029 (3.6%)# 05/15/2017 77 0.810 -1.1 -0.037 (-4.3%) -0.022 (-2.7%) 04/24/2015 75 0.832 -0.9 -0.015 (-1.7%) -0.015 (-1.7%) 11/16/2012 72 0.846 -0.8 *Denotes significance at 95% confidence level, LSC for AP Spine = 0.022 g/cm2, LSC for Total Hip = 0.027 g/cm2 # Denotes dissimilar scan types or analysis methods Clinical Information Provided by Patient: Has used the following medications: Prolia (i.e. denosumab), Vitamin D Patient maximum height was 64 Menopause Age: 54 Onset of menses at age 14 Number of children 2 Impression: The patient has osteoporosis, based on the Left Femoral Neck T-score. The BMD for the AP Spine (L1-L4) decreased, changing by -3.0% since the last DXA exam. Discussion: INCREASED RISK OF FRACTURE. BONE DENSITY IS UNDESIRABLY LOW AT ONE OR MORE SKELETAL SITES, CONSISTENT WITH POSTMENOPAUSAL OSTEOPOROSIS. This patient's lowest T-score meets the World Health Organization's (WHO) criteria for osteoporosis at one or more sites (T-score -2.5 or below). In untreated patients, the risk of osteoporotic fracture increases approximately two-fold for each 1.0 SD decrease in T-score. Low bone density is not the only risk factor for fracture; also consider factors such as patient's age, frailty or poor health, risk of falling, risk of injury, previous osteoporotic fracture, family history of osteoporosis, cigarette smoking, low body weight, etc. Not everyone with low bone mineral density has osteoporosis; osteomalacia and other metabolic bone disorders should also be considered. Patients who have osteoporosis should be evaluated for specific diseases and conditions (secondary causes) that may cause or contribute to bone loss. The [place] Association of Clinical Endocrinologists (AACE) and National Osteoporosis Foundation (NOF) recommend pharmacologic intervention for all postmenopausal women whose T-score is in this range. The patient should follow a healthful lifestyle (good nutrition with adequate calcium and vitamin D, and appropriate weight-bearing exercise). Follow-Up: Consider a repeat BMD and Vertebral Fracture Assessment (VFA) exam in 2 years or sooner if medically necessary, to reassess this patient's status. Reported by: WOLFGANG on 10/17/2024 3:10:00 PM. Reviewed, dictated and finalized at location A.
--- OUTSIDE RECORDS SUMMARY | 2024-10-17 14:32 | XMS_ITS | Encounter Summary ---
Author Organization [facility] Address [address] [place] [address] Care Team Providers Care Turbine Blade Assembler Name Role Phone Unavailable Primary Care Provider Unavailabl e Encounter Details Date Type Department Care Team (Late st Contact Info) Description 12/22/2023 Lab Requisition [facility] - DermPath Lab [address] [facility] [place] [id number] Carol Meyers DO [address] [facility] [address] [place] [address] Social History Tobacco Use Types Packs/Day Years Used Date Smoking Tobacco: Never Assessed Comments Unknown Sex and Gender Information Value Date Recorded Sex Assigned at Not on file Legal Sex Female 6:[address] Gender Identity Not on file Sexual Orientation Not on file documented as of this encounter Plan of Treatment Not on file documented as of this encounter Procedures Procedure Name Priority Date/Time Associated Diagnosis Comments DERMATOPATHOLOGY Routine 12/22/2023 12:3 6 PM CDT documented in this encounter Results * DERMATOPATHOLOGY (12/22/2023 12:36 PM CDT) Case Report Dermatopathology Report Case: [id number] Authorizing Provider: Carol Meyers DO Collected: 12/22/2023 12:36 PM Ordering Location: [facility] - Received: 12/22/2023 02:27 PM DermPath Lab Pathologist: Herminio Peralta MD Specimen: Skin, right forearm 1:06 PM CDT DERMATOPATHOLOGY LABORATORY Final Diagnosis Specimen A. 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 The specimen consists of a non-oriented ellipse of skin measuring [id number] mm. The epidermal surface is unremarkable. The margin is inked green. The 12 o'clock and 6 o'clock tips are submitted in cassette 1. The remainder of the ellipse is serially sectioned and submitted in cassette 2-3. Jar 0. 1:06 PM T DERMATOPATHOLOGY LABORATORY Microscopic Description Specimen A. SKIN, right forearm: The epidermis shows parakeratosis, full thickness disorderly maturation of keratinocytes, mitoses at different levels, and dyskeratotic cells. Immediately adjacent there is focal parakeratosis. The lower half of the epidermis shows disorderly maturation of keratinocytes with nuclear pleomorphism. The actinic keratosis is present at one lateral margin of the specimen in block 3. There are fibroblasts and collagen bundles oriented parallel to the skin surface with elongated blood vessels, some of which are oriented perpendicular to the skin surface. 1:06 PM CDT DERMATOPATHOLOGY LABORATORY Disclaimer An external and internal positive and negative controls are appropriate for the histochemical, immunohistochemical and immunofluorescence stain(s) in this case (if any), except where stated explicitly. The performance characteristics of the stain(s) cited in this report were developed and its performance characteristic determined by the Dermatopathology Laboratory at [facility], directed by Dr. Miya Peralta. These tests need not be, and therefore are not, approved by the [place] Food and Drug Administration. The tests are used for clinical purposes. Billing Codes Specimen Charges Stain Charges 50359 1 1:06 PM CDT DERMATOPATHOLOGY LABORATORY Embedded Images 1:06 PM CDT DERMATOPATHOLOGY LABORATORY Pathology/Cytolo gy TISSUE SPECIMEN FROM SKIN / Unknown 12/22/2023 12:36 PM CDT 12/22/2023 2:27 PM CDT us Carol Meyers DO LAB - PATHOLOGY/CYTOLOGY ORDERABLES Final Result DERMATOPATHOLOGY LABORATORY [facility] - Department of Dermatology [facility] Medicine [address] [place] [address], [address] [phone] documented in this encounter Visit Diagnoses Not on filedocumented in this encounter
--- OUTSIDE RECORDS SUMMARY | 2024-10-17 14:32 | XMS_ITS | Clinical Summary ---
Author Organization [facility] Address [facility] [place] [address] Care Team Providers Care Concrete Finishing Machine Operator Name Role Phone Rachiddominga Savanah Herminio [facility] Primary Care Provider [phone] Allergies Active Allergy Reactions Criticality Noted Date Comments Sulfa Antibiotics Other (see comment) 5 Unsure. Happened when baby Medications levothyroxine (SYNTHROID) 75 MCG tablet Take 1 tablet (75 mcg total) by mouth every morning. Active atorvastatin (LIPITOR) 40 MG tablet Take 1 tablet (40 mg total) by mouth nightly at bedtime. Active valsartan (DIOVAN) 320 MG tablet Take 1 tablet (320 mg total) by mouth daily. Active atenolol (TENORMIN) 50 MG tablet Take 1 tablet (50 mg total) by mouth 2 (two) times daily. Active cetirizine (ZYRTEC) 5 MG tablet Take 1 tablet (5 mg total) by mouth daily. Active pantoprazole EC (PROTONIX) 40 MG tablet Take 1 tablet (40 mg total) by mouth daily. Active amLODIPine (NORVASC) 5 MG tablet Take 1 tablet (5 mg total) by mouth daily. Active Fluticasone-Ume clidin-Vilant (TRELEGY ELLIPTA) 200-62.5-25 MCG/ACT AEROSOL POWDER, BREATH ACTIVATED Inhale 1 puff into the lungs daily. Active aspirin EC (ECOTRIN) 81 MG tablet Take 1 tablet (81 mg total) by mouth daily. Active albuterol sulfate HFA 108 (90 Base) MCG/ACT inhaler Inhale 2 puffs into the lungs every 6 (six) hours as needed for Wheezing. Active Social History Tobacco Use Types Packs/Day Years Used Date Smoking Tobacco: Former Cigarettes 0.5 10 1 970 - 1979 Smokeless Tobacco: Never Tobacco Cessation:Counseling Given: Not Answered Alcohol Use Standard Drinks/Week Comments Yes 1 (1 standard drink = 0.6 oz pur e alcohol) jazzy weekly Comments No Sex and Gender Information Value Date Recorded Sex Assigned at Not on file Legal Sex Female 1:45 PM CDT Gender Identity Not on file Sexual Orientation Not on file Last Filed Vital Signs Vital Sign Reading Time Taken Comments Blood Pressure 141/60 06/20/2024 10:49 AM CDT Pulse 55 06/20/2024 10:49 AM CDT Temperature 36.4 C (97.6 F) 06/20/2024 10:03 AM CDT Respiratory Rate 16 06/20/2024 10:03 AM CDT Oxygen Saturation 99% 06/20/2024 10:49 AM CDT Inhaled Oxygen Concentration - - Weight 70.3 kg (155 lb) 06/20/2024 10:03 AM CDT Height 160 cm (5' 3) 06/20/2024 10:03 AM CDT Body Mass Index 27.46 06/20/2024 10:03 AM CDT Plan of Treatment Health Maintenance Due Date Last Done Comments DTaP, Tdap and Td Vaccines (1 - Tdap) 1961 Pneumococcal Vaccine: 50+ Years (1 of 1 - PCV) 01/18/1992 Annual Medicare Wellness Visit 2007 Dexa Scan (General) 2007 COVID-19 Vaccine ( season) 2024 12/29/2023, 01/08/2023, 11/20/2021, Additional history exists Zoster Vaccines Completed 02/28/2020, 11/07/2019 RSV Immunization or 60+ Years Completed 01/20/2023 Meningococcal B Vaccine Aged Out No l onger eligible based on patient's age to complete this topic Meningococcal Vaccine Aged Out No jay mervat eligible based on patient's age to complete this topic RSV Immunizations Under 20 Months Aged Out No longer eligible based on patient's age to complete this topic Medical Devices Implanted Type Area Road Cutter Device Identifier Shelf Expiration Date Model / Serial / Lot Tecnis 1-Piece Iol With Tecnis Simplicity Delivery System Implanted:Qty: 1 on 06/20/2024 by Enrique Roman MD at [facility] Lens Left: Eye [employer] 11/11/2025 / / [id number] Insurance [facility] MEDIC[facility] Care Teams Concrete Finishing Machine Operator Relationship Specialty Start Date End Date Savanah Curran FNP [address] [facility] [address] [place] [address] PCP - General CLINICAL NURSE SPECIALIST 06/20/24
--- OUTSIDE RECORDS SUMMARY | 2024-10-17 14:32 | XMS_ITS | Encounter Summary ---
Author Organization [facility] Address [address] [facility] [place] [address] Care Team Providers Care Bilingual Medical Assistant Name Role Phone Unavailable Primary Care Provider Unavailabl e Encounter Details Date Type Department Care Team (Late st Contact Info) Description 04/26/2024 Lab Requisition [facility] - DermPath Lab [address] [facility] [place] [address] Carol Meyers DO [address] [facility] [address] [place] [address] Social History Tobacco Use Types Packs/Day Years Used Date Smoking Tobacco: Never Assessed Comments Unknown Sex and Gender Information Value Date Recorded Sex Assigned at Not on file Legal Sex Female 6:09 PM SURVEYOR GEOD[employer] Gender Identity Not on file Sexual Orientation Not on file documented as of this encounter Plan of Treatment Not on file documented as of this encounter Procedures Procedure Name Priority Date/Time Associated Diagnosis Comments DERMATOPATHOLOGY Routine 04/26/2024 1:54 PM SURVEYOR GEODETIC documented in this encounter Results * DERMATOPATHOLOGY (04/26/2024 1:54 PM SURVEYOR GEODETIC) Case Report Dermatopathology Report Case: [id number] Authorizing Provider: Carol Meyers DO Collected: 04/26/2024 01:54 PM Ordering Location: [facility] - Received: 04/27/2024 04:43 PM DermPath Lab Pathologist: Elissa Chen MD Specimens: A) - Skin, left neck B) - Skin, right chest C) - Skin, right posterior lower ext 6:14 PM CDT DERMATOPATHOLOGY LABORATORY Final Diagnosis Specimen A. 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 SKIN, right chest: BENIGN VERRUCOUS KERATOSIS, INFLAMED (L82.1) (see microscopic description) Specimen C. SKIN, right posterior lower ext: LICHEN PLANUS-LIKE KERATOSIS (BENIGN LICHENOID KERATOSIS) (L82.1) 6:14 PM T DERMATOPATHOLOGY LABORATORY at 1814 CDT Clinical History A: R/O Pigmented NMSC B-C: R/O NMSC 6:14 PM CDT DERMATOPATHOLOGY LABORATORY Gross Description Specimen A: Received is one formalin filled container labeled with the patient's name and designated left neck. The specimen consists of a shave biopsy measuring 5x4x1 mm. Jar 0. Specimen B: Received is one formalin filled container labeled with the patient's name and designated right chest. The specimen consists of a shave biopsy measuring 7x5x1 mm. Jar 0. Specimen C: Received is one formalin filled container labeled with the patient's name and designated right posterior lower ext. The specimen consists of a shave biopsy measuring 7x6x1 mm. Jar 0. 6:14 PM CDT DERMATOPATHOLOGY LABORATORY Microscopic Description Specimen A. SKIN, left neck: Sections show nests of cells with pale cytoplasm and thin strands of relatively normal keratinocytes intervening. Many keratinocytes are pigmented. There is overlying parakeratosis. Specimen B. SKIN, right chest: Sections show hyperkeratosis, papillomatosis, hypergranulosis, and acanthosis. There are also elongated rete ridges. Inflammatory cells including lymphocytes and histiocytes are present within the dermis. Additional deeper sections were obtained and reviewed. Specimen C. SKIN, right posterior lower ext: The epidermis is mildly acanthotic. There is a lichenoid lymphohistiocytic infiltrate with vacuolar changes of basilar keratinocytes and scattered necrotic keratinocytes. 6:14 PM CDT DERMATOPATHOLOGY LABORATORY Disclaimer An external and internal positive and negative controls are appropriate for the histochemical, immunohistochemical and immunofluorescence stain(s) in this case (if any), except where stated explicitly. The performance characteristics of the stain(s) cited in this report were developed and its performance characteristic determined by the Dermatopathology Laboratory at [facility], directed by Dr. Miya Peralta. These tests need not be, and therefore are not, approved by the [place] Food and Drug Administration. The tests are used for clinical purposes. Billing Codes Specimen Charges Stain Charges 03942 31303 03149 1 1 1 5 6:14 PM CDT DERMATOPATHOLOGY LABORATORY Embedded Images 5 6:14 PM CDT DERMATOPATHOLOGY LABORATORY Pathology/Cytology TISSUE SPECIMEN FROM SKIN / Unknown 04/26/2024 1:54 PM SURVEYOR GEODETIC 04/27/2024 4:43 PM SURVEYOR GEODETIC Miscellaneous samples (specimen) TISSUE SPECIMEN FROM SKIN / Unknown 04/26/2024 1:54 PM SURVEYOR GEODETIC 04/27/2024 4:43 PM SURVEYOR GEODETIC Miscellaneous samples (specimen) TISSUE SPECIMEN FROM SKIN / Unknown 04/26/2024 1:54 PM SURVEYOR GEODETIC 04/27/2024 4:43 PM SURVEYOR GEODETIC us Carol Meyers DO LAB - PATHOLOGY/CYTOLOGY ORDERABLES Final Result DERMATOPATHOLOGY LABORATORY [facility] - Department of Dermatology [facility] Medicine [address] [place] [address], [address] [phone] documented in this encounter Visit Diagnoses Not on filedocumented in this encounter
--- OUTSIDE RECORDS SUMMARY | 2024-10-17 14:32 | XMS_ITS | Encounter Summary ---
Author Organization [facility] Address [address] [place] [address] Care Team Providers Care Dye House Helper Name Role Phone Unavailable Primary Care Provider Unavailabl e Encounter Details Date Type Department Care Team (Late st Contact Info) Description 12/15/2023 Lab Requisition [facility] - DermPath Lab [address] [facility] [facility] [place] [address] Carol Meyers DO [address] [facility] [address] [place] [address] Social History Tobacco Use Types Packs/Day Years Used Date Smoking Tobacco: Never Assessed Comments Unknown Sex and Gender Information Value Date Recorded Sex Assigned at Not on file Legal Sex Female 6:09 PM LEGAL ADMINISTRATIVE ASSISTANT Gender Identity Not on file Sexual Orientation Not on file documented as of this encounter Plan of Treatment Not on file documented as of this encounter Procedures Procedure Name Priority Date/Time Associated Diagnosis Comments DERMATOPATHOLOGY Routine 12/15/2023 11:3 8 AM CDT documented in this encounter Results * DERMATOPATHOLOGY (12/15/2023 11:38 AM CDT) Case Report Dermatopathology Report Case: [id number] Authorizing Provider: Carol Meyers DO Collected: 12/15/2023 11:38 AM Ordering Location: [facility] - Received: 12/15/2023 04:37 PM DermPath Lab Pathologist: Jenniffer Chen MD Specimen: Skin, right thigh 4:05 PM CDT DERMATOPATHOLOGY LABORATORY Final Diagnosis Specimen A. SKIN, right thigh: HEALING SKIN CHANGES (L90.5) DERMAL SCAR RESIDUAL SQUAMOUS CELL CARCINOMA NOT IDENTIFIED (L90.5) 4:05 PM CDT DERMATOPATHOLOGY LABORATORY at 1605 CDT Clinical History Bx proven SCCIS 4:05 PM CDT DERMATOPATHOLOGY LABORATORY Gross Description Specimen A: Received is one formalin filled container labeled with the patient's name and designated right thigh. The specimen consists of a non-oriented ellipse of skin measuring [id number] mm. The epidermal surface is unremarkable. The margin is inked green. The 12 o'clock and 6 o'clock tips are submitted in cassette 1. The remainder of the ellipse is serially sectioned and submitted in cassette 2-3. Jar 0. 4:05 PM CDT DERMATOPATHOLOGY LABORATORY Microscopic Description Specimen A. SKIN, right thigh: There is epidermal hyperplasia beneath which there are vascular proliferation, fibroblasts, and an edematous stroma. There are fibroblasts and collagen bundles oriented parallel to the skin surface. There are elongated blood vessels, some of which are oriented perpendicular to the skin surface. No residual squamous cell carcinoma is identified. 4:05 PM T DERMATOPATHOLOGY LABORATORY Disclaimer An external and internal positive and negative controls are appropriate for the histochemical, immunohistochemical and immunofluorescence stain(s) in this case (if any), except where stated explicitly. The performance characteristics of the stain(s) cited in this report were developed and its performance characteristic determined by the Dermatopathology Laboratory at [facility], directed by Dr. Miya Peralta. These tests need not be, and therefore are not, approved by the [place] Food and Drug Administration. The tests are used for clinical purposes. Billing Codes Specimen Charges Stain Charges 10437 1 4:05 PM CDT DERMATOPATHOLOGY LABORATORY Embedded Images 4:05 PM CDT DERMATOPATHOLOGY LABORATORY Pathology/Cytolo gy TISSUE SPECIMEN FROM SKIN / Unknown 12/15/2023 11:38 AM CDT 12/15/2023 4:37 PM CDT us Carol Meyers DO LAB - PATHOLOGY/CYTOLOGY ORDERABLES Final Result DERMATOPATHOLOGY LABORATORY [facility] - Department of Dermatology [address], [address] [phone] documented in this encounter Visit Diagnoses Not on filedocumented in this encounter
--- OUTSIDE RECORDS SUMMARY | 2024-10-17 14:32 | XMS_ITS | Clinical Summary ---
Author Organization [facility] Address [address] [place] [address] Care Team Providers Care Carburizer Name Role Phone Unavailable Primary Care Provider Unavailabl e Source Comments [facility] [employer],non-owned Affiliates and Associated Physician Practices is amultiple site organization consisting of ambulatory clinics and hospital sitesin [place], [place]. This disclosure is being madepursuant to the Care Everywhere program and may not contain all information available regarding this patient. Last updated 17.[facility] Social History Tobacco Use Types Packs/Day Years Used Date Smoking Tobacco: Never Assessed Comments Unknown Sex and Gender Information Value Date Recorded Sex Assigned at Not on file Legal Sex Female 6:09 PM MEDICATION AID Gender Identity Not on file Sexual Orientation Not on file Plan of Treatment Health Maintenance Due Date Last Done Comments BONE DENSITY TESTING 1940 MEDICARE AWV 12 MONTHS 1940 DTAP/TDAP/TD VACCINES (1 - Tdap) 1961 PNEUMOCOCCAL VACCINE 50+ (1 of 1 - PCV) 01/18/1992 ZOSTER VACCINE (1 of 2) 01/18/1992 Respiratory Syncytial Virus (RSV) Vaccine Pt: or over 60 yrs (1 - 1-dose 75+ series) 2017 COVID-19 VACCINE ( - 2023-2 5 season) 2023 DEPRESSION SCREENING 02/24/2024 INFLUENZA VACCINE (#1) 2024 HEPATITIS B VACCINE Aged Out No longe r eligible based on patient's age to complete this topic HIB VACCINE Aged Out No longer eligi ble based on patient's age to complete this topic HPV VACCINE Aged Out No longer eligi ble based on patient's age to complete this topic MENINGOCOCCAL (Group B) VACC INE SHARED DECISION-MAKING Aged Out No longer eligibl e based on patient's age to complete this topic MENINGOCOCCAL GROUPS A/C/Y/W VACCINE Aged Out No longer eligible b ased on patient's age to complete this topic Insurance MEDICARE [facility] MEDICARE [facility] Member Subscriber Plan / Payer (Ef fective for All Dates) Name:ObinnajonatanSharon Relation to Subscriber:Self Name:JIMYSHARON JOHNSON Payer ID:[id number] (NAIC) Type:PPO Address: [facility] [id number] [place] [id number]
--- OUTSIDE RECORDS SUMMARY | 2024-10-17 14:33 | XMS_ITS | Clinical Summary ---
Author Organization [facility] [address] Address [address] [place] [address] Care Team Providers Care Budget Specialist Name Role Phone Avni Shah MD Primary Care Provider [phone] Allergies Active Allergy Reactions Criticality Noted Date Comments Sulfa (Sulfonamide Antibiotics) Other (See comments) High Reaction: unknown, Medications vitamin E 400 unit capsule 0 0 07/25/19 17 Active fluticasone (FLONASE ALLERGY RELIEF) 50 mcg/actuation nasal spray spray 1 - 2 spray by intranasal route every day in each nostril as needed 0 spray 0 07/25/19 17 Active aspirin 81 mg chewable tablet chew 1 tablet by oral route every day 0 0 07/25/19 17 Active b complex vitamins capsule 0 0 07/25/19 17 Active montelukast (SINGULAIR) 10 mg tablet take 1 tablet by oral route every day in the evening 0 0 07/25/19 17 Active cetirizine (ZyrTEC) 10 mg tablet take 1 tablet by oral route every day 0 0 07/25/19 17 Active albuterol sulfate (PROAIR RESPICLICK) 90 mcg/actuation aerosol powdr breath activated inhale 2 puff by inhalation route every 4 - 6 hours as needed 0 Inhaler 0 07/25/19 17 Active Additional Information Patient not taking.Reported on 04/18/2024 levothyroxine sodium (TIROSINT) 137 mcg capsule take 1 capsule by oral route every day 0 0 07/25/19 17 Active cholecalciferol (VITAMIN D3) 1,000 unit capsule 0 0 07/25/19 17 Active eye lubricant combination no.1 (FRESHKOTE) 2-0.9-1.8 % drops 0 0 07/25/19 17 Active biotin 1 mg capsule Take by mouth. Activ e nitroglycerin (NITROSTAT) 0.[address] 1 tablet (0.4 mg total) under the tongue every 5 (five) minutes as needed for chest pain 25 tablet 11/18/19 19 Active ipratropium (ATROVENT) 0.03 % nasal spray 1 spray daily 01/17/[address] (PROTONIX) 40 mg EC tablet Take 1 tablet (40 mg total) by mouth daily Active pyridoxine (VITAMIN B-6) 100 mg tablet Take 1 tablet (100 mg total) by mouth daily Active fluticasone-umecli din-vilanter (TRELEGY ELLIPTA) 200-62.5-25 mcg inhaler 03/01/19 22 Active potassium chloride ER 20 mEq CR tabletIndications: Essential hypertension, benign Take 1 tablet (20 mEq total) by mouth daily 90 tablet 3 04/13/19 24 Active atorvastatin (LIPITOR) 40 mg tabletIndications: Mixed hyperlipidemia TAKE 1 TABLET BY MOUTH DAILY 90 tablet 3 03/08/19 25 Active valsartan (DIOVAN) 160 mg tablet Take 2 tablets (320 mg total) by mouth daily 03/09/19 25 Active levothyroxine (SYNTHROID) 75 mcg tablet Take 1 tablet (75 mcg total) by mouth director of early childhood education before breakfast 03/09/19 25 Active atenoloL (TENORMIN) 50 mg tabletIndications: 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,Essential hypertension, benign Take 1 tablet (50 mg total) by mouth 2 (two) times a day 180 tablet 3 04/18/19 25 Active amLODIPine (NORVASC) 5 mg tablet Take 1 tablet (5 mg total) by mouth daily 90 tablet 3 04/18/19 25 026 Active Active Problems Problem Noted Date Diagnosed Date Nonrheumatic tricuspid valve regurgitation 03/26 Coronary artery disease invo lving buckland coronary artery of buckland heart without angina pectoris 03/22/2018 Mixed hyperlipidemia 09/08/2016 Assessment & Plan (03/16/2017 11:47 AM FILM SPLICER): I advised patient to get 12 hour fasting lipid panel when she visits her primary care physician in April. Her triglycerides are consistently elevated. Assessment & Plan (09/08/2016 12:39 PM CDT): 2 consecutive lipid panel showed elevated triglycerides. Her lipid panel today is nonfasting and shows triglycerides elevation to 372. I would recommend that we do 12 hour fasting lipid panel to assess triglycerides Essential hypertension, benign 09/08/2016 Assessment & Plan (03/16/2017 11:47 AM FILM SPLICER): She was advised to keep blood pressure diary because her systolic blood pressure is borderline high. Assessment & Plan (09/08/2016 12:40 PM CDT): Blood pressure diary at home shows systolic blood pressure in the 130s. Continue current treatment. Patient has a prescription to have the blood work checked to make sure that the renal function and potassium are within normal. When patient presented to [facility] with the [place] her potassium was very low. Currently she is taking potassium supplementation Lightheadedness 09/08/2016 Assessment & Plan (09/08/2016 12:38 PM CDT): She started to feel lightheaded after her myocardial infarction in June 2016. I will try today to cut down on the Lipitor from 40 to 20 mg to see if that will make any difference. Patient used to take simvastatin before. Resolved Problems Problem Noted Date Diagnosed Date Resolved Date ST elevation myocardial infarction (STEMI) 07/24/2016 03/22/2018 Overview (07/25/2016): ST elevation (STEMI) myocardial infarction involving right coronary artery Assessment & Plan (03/16/2017 11:46 AM FILM SPLICER): Continue aspirin, Plavix, atorvastatin. Assessment & Plan (09/08/2016 12:38 PM CDT): Status post drug-eluting stent to the RCA. Continue aspirin and Brilinta. Continue cardiac rehabilitation. Surgical History Surgery Date Site/Laterality Comments CORONARY ANGIOPLASTY Coronary angioplasty Medical History Medical History Date Comments Hypertension Hypertension Myocardial infarction (HCC) Myoc ardial infarction Hypercholesterolemia High choles terol Disease of thyroid gland Thyroid disease Sinusitis Sinusitis Allergic rhinitis Allergic rhini tis Heart murmur Heart murmur Airway hyperreactivity Asthma Arthritis Arthritis History of cardiac catheterization History of cardiac catheterization Family History Medical History Relation Name Comments Other Father Heart Condition ; Cause of : Heart Condition Other Mother Heart Condition ; Cause of : Heart Condition Hypertension Other Family history of Hypertension; Relation Name Status Comments Father (Age 67) Mother (Age 69) Other Social History Tobacco Use Types Packs/Day Years Used Date Smoking Tobacco: Former Smokeless Tobacco: Never Tobacco Cessation:Counseling Given: Not Answered Alcohol Use Standard Drinks/Week Comments Yes 0 (1 standard drink = 0.6 oz pur e alcohol) Comments Unknown Sex and Gender Information Value Date Recorded Sex Assigned at Not on file Legal Sex Female 12:09 PM CDT Gender Identity Not on file Sexual Orientation Not on file Obstetrics History Last Filed Vital Signs Vital Sign Reading Time Taken Comments Blood Pressure 138/62 04/18/2024 9:33 AM FILM SPLICER Pulse 62 04/18/2024 9:33 AM FILM SPLICER Temperature 36.3 C (97.3 F) 04/30/2020 8:16 AM FILM SPLICER Respiratory Rate 14 09/08/2016 11:49 AM CDT Oxygen Saturation 96% 04/18/2024 9:33 AM FILM SPLICER Inhaled Oxygen Concentration - - Weight 72.1 kg (159 lb) 04/18/2024 9:33 AM FILM SPLICER Height 160 cm (5' 3) 04/18/2024 9:33 AM FILM SPLICER Body Mass Index 28.17 04/18/2024 9:33 AM FILM SPLICER Plan of Treatment Health Maintenance Due Date Last Done Comments Depression Screening 1942 Fall Risk Assessment 1942 Osteoporosis Screening-Bone Density Scan 1942 DTaP/Tdap/Td Vaccine (1 - Tdap) 1953 Hepatitis B Screening 01/18/1960 Pneumococcal vaccine 65+ (1 of 1 - PCV) 01/18/1992 Zoster Vaccine (1 of 2) 01/18/1992 Well Visit 65+ 2007 Influenza Vaccine (#1) 2024 12/21/2018, 2017 Insurance MEDICARE MEDICARE BLUE CROSS MEDICARE SUPPLEMENT Care Teams Budget Specialist Relationship Specialty Start Date End Date Avni Shah MD PCP - General Family Medicine 03/24/22
--- OUTSIDE RECORDS SUMMARY | 2024-10-17 14:33 | XMS_ITS | Encounter Summary ---
Author Organization [facility] Address [address] [facility] [place] [address] Care Team Providers Care Heating Technician Name Role Phone Unavailable Primary Care Provider Unavailabl e Encounter Details Date Type Department Care Team (Late st Contact Info) Description 03/25/2023 Lab Requisition [facility] - DermPath Lab [address] [facility], [place] [address] Peggy Alba MD [address] [facility] [address] [place] [address] Social History Tobacco Use Types Packs/Day Years Used Date Smoking Tobacco: Never Assessed Comments Unknown Sex and Gender Information Value Date Recorded Sex Assigned at Not on file Legal Sex Female 6:09 PM GROVE SUPERINTENDENT Gender Identity Not on file Sexual Orientation Not on file documented as of this encounter Plan of Treatment Not on file documented as of this encounter Procedures Procedure Name Priority Date/Time Associated Diagnosis Comments DERMATOPATHOLOGY Routine 03/25/2023 10:1 6 AM GROVE SUPERINTENDENT documented in this encounter Results * DERMATOPATHOLOGY (03/25/2023 10:16 AM GROVE SUPERINTENDENT) Case Report Dermatopathology Report Case: [id number] Authorizing Provider: Peggy Alba MD Collected: 03/25/2023 10:16 AM Ordering Location: [facility] DermPath Lab Received: 03/26/2023 10:51 AM Pathologist: Jenniffer Chen MD Specimen: Skin, left ant thigh 1:23 PM GROVE SUPERINTENDENT DERMATOPATHOLOGY LABORATORY Final Diagnosis Specimen A. SKIN, left ant thigh: SQUAMOUS CELL CARCINOMA IN SITU, PRESENT AT THE BASE OF THE SPECIMEN (D04.72) (see microscopic description and comment) 1:23 PM GROVE SUPERINTENDENT DERMATOPATHOLOGY LABORATORY at [address] GROVE SUPERINTENDENT Clinical History HAK vs. SCC 4 1:23 PM [facility] DERMATOPATHOLOGY LABORATORY Gross Description Specimen A: Received is one formalin filled container labeled with the patient's name and designated left ant thigh. The specimen consists of a shave biopsy measuring 6x5x1 mm. Jar 0. 4 1:23 PM [facility] DERMATOPATHOLOGY LABORATORY Microscopic Description Specimen A. SKIN, left ant thigh: The epidermis shows parakeratosis, full thickness disorderly maturation of keratinocytes, mitoses at different levels, and dyskeratotic cells. The lesion broadly extends to the base of the biopsy. COMMENT: An invasive squamous cell carcinoma cannot be ruled out. 4 1:23 PM [facility] DERMATOPATHOLOGY LABORATORY Disclaimer An external and internal positive and negative controls are appropriate for the histochemical, immunohistochemical and immunofluorescence stain(s) in this case (if any), except where stated explicitly. The performance characteristics of the stain(s) cited in this report were developed and its performance characteristic determined by the Dermatopathology Laboratory at [facility], directed by Dr. Miya Peralta. These tests need not be, and therefore are not, approved by the [place] Food and Drug Administration. The tests are used for clinical purposes. Billing Codes Specimen Charges Stain Charges 78868 1 4 1:23 PM [facility] DERMATOPATHOLOGY LABORATORY Embedded Images 4 1:23 PM [facility] DERMATOPATHOLOGY LABORATORY Pathology/Cytolo gy TISSUE SPECIMEN FROM SKIN / Unknown 03/25/2023 10:16 AM GROVE SUPERINTENDENT 03/26/2023 10:51 AM [facility] Peggy Alba MD LAB - PATHOLOGY/CYTOLOGY OR DERABLES Final Result DERMATOPATHOLOGY LABORATORY [facility] - Department of Dermatology [address], [address] [phone] documented in this encounter Visit Diagnoses Not on filedocumented in this encounter
--- OUTSIDE RECORDS SUMMARY | 2024-10-17 14:33 | XMS_ITS | Encounter Summary ---
Author Organization [facility] Address [address] [facility] [place] [address] Care Team Providers Care Dynamics Ax Technical Architect Name Role Phone Unavailable Primary Care Provider Unavailabl e Encounter Details Date Type Department Care Team (Late st Contact Info) Description 04/28/2023 Lab Requisition [facility] - DermPath Lab [address] [facility] [place] [phone] Carol Meyers DO [address] [facility] [address] [place] [address] Social History Tobacco Use Types Packs/Day Years Used Date Smoking Tobacco: Never Assessed Comments Unknown Sex and Gender Information Value Date Recorded Sex Assigned at Not on file Legal Sex Female 6:09 PM STUMPER FELLER Gender Identity Not on file Sexual Orientation Not on file documented as of this encounter Plan of Treatment Not on file documented as of this encounter Procedures Procedure Name Priority Date/Time Associated Diagnosis Comments DERMATOPATHOLOGY Routine 04/28/2023 2:27 PM STUMPER FELLER documented in this encounter Results * DERMATOPATHOLOGY (04/28/2023 2:27 PM STUMPER FELLER) Case Report Dermatopathology Report Case: [id number] Authorizing Provider: Carol Meyers DO Collected: 04/28/2023 02:27 PM Ordering Location: [facility] Physician [facility] - Received: 04/29/2023 01:14 PM DermPath Lab Pathologist: Jenniffer Chne MD Specimen: Skin, left anterior thigh 4 2:29 PM STUMPER FELLER DERMATOPATHOLOGY LABORATORY Final Diagnosis Specimen A. SKIN, left anterior thigh: DERMAL SCAR RESIDUAL SQUAMOUS CELL CARCINOMA NOT IDENTIFIED (L90.5) 4 2:29 PM STUMPER FELLER DERMATOPATHOLOGY LABORATORY at [address] STUMPER FELLER Clinical History BX Proven SCCIS 4 2:29 PM [facility] DERMATOPATHOLOGY LABORATORY Gross Description Specimen A: Received is one formalin filled container labeled with the patient's name and designated left anterior thigh. The specimen consists of a non-oriented ellipse of skin measuring 08z54m6 mm. Also, there a lesion measuring 6x6x mm. The margin is inked green. The 12 o'clock and 6 o'clock tips are submitted in cassette 1. The remainder of the ellipse is serially sectioned and submitted in cassette 2 - 3. Jar 0. 4 2:29 PM [facility] DERMATOPATHOLOGY LABORATORY Microscopic Description Specimen A. SKIN, left anterior thigh: There are fibroblasts and collagen bundles oriented parallel to the skin surface. There are elongated blood vessels, some of which are oriented perpendicular to the skin surface. No residual squamous cell carcinoma is identified. 2:29 PM [facility] DERMATOPATHOLOGY LABORATORY Disclaimer An external and internal positive and negative controls are appropriate for the histochemical, immunohistochemical and immunofluorescence stain(s) in this case (if any), except where stated explicitly. The performance characteristics of the stain(s) cited in this report were developed and its performance characteristic determined by the Dermatopathology Laboratory at [facility], directed by Dr. Miya Peralta. These tests need not be, and therefore are not, approved by the [place] Food and Drug Administration. The tests are used for clinical purposes. Billing Codes Specimen Charges Stain Charges 07996 1 4 2:29 PM [facility] DERMATOPATHOLOGY LABORATORY Embedded Images 2:29 PM [facility] DERMATOPATHOLOGY LABORATORY Pathology/Cytolo gy TISSUE SPECIMEN FROM SKIN / Unknown 04/28/2023 2:27 PM STUMPER FELLER 04/29/2023 1:14 PM STUMPER FELLER us Carol Meyers DO LAB - PATHOLOGY/CYTOLOGY ORDERABLES Final Result DERMATOPATHOLOGY LABORATORY [facility] - Department of Dermatology [address] [place] [address], [facility] [phone] documented in this encounter Visit Diagnoses Not on filedocumented in this encounter
--- OUTSIDE RECORDS SUMMARY | 2024-10-17 14:33 | XMS_ITS | Encounter Summary ---
Author Organization [facility] Address [address] [facility] [place] [address] Care Team Providers Care Corn Cutter Operator Name Role Phone Unavailable Primary Care Provider Unavailabl e Encounter Details Date Type Department Care Team (Late st Contact Info) Description 11/17/[address] [facility] - DermPath Lab [address] [facility] [place] [phone] Carol Meyers DO [address] [facility] [address] [place] [address] Social History Tobacco Use Types Packs/Day Years Used Date Smoking Tobacco: Never Assessed Comments Unknown Sex and Gender Information Value Date Recorded Sex Assigned at Not on file Legal Sex Female 6:09 PM GRINDER HARDBOARD Gender Identity Not on file Sexual Orientation Not on file documented as of this encounter Plan of Treatment Not on file documented as of this encounter Procedures Procedure Name Priority Date/Time Associated Diagnosis Comments DERMATOPATHOLOGY Routine 11/17/2023 10:1 4 AM CDT documented in this encounter Results * DERMATOPATHOLOGY (11/17/2023 10:14 AM CDT) Case Report Dermatopathology Report Case: [id number] Authorizing Provider: Carol Meyers DO Collected: 11/17/2023 10:14 AM Ordering Location: [facility] - Received: 11/17/2023 03:11 PM DermPath Lab Pathologist: Herminio Peralta MD Specimens: A) - Skin, left chest B) - Skin, right forehead C) - Skin, right thigh D) - Skin, left inner forearm 6:07 PM CDT DERMATOPATHOLOGY LABORATORY Amended Report Due to a clerical error, specimen B is change from right forehead to right forearm. 6:07 PM T DERMATOPATHOLOGY LABORATORY Final Diagnosis Specimen A. 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 The specimen consists of a shave biopsy measuring 8x8x1 mm. Jar 0. Specimen B: Received is one formalin filled container labeled with the patient's name and designated right forearm. The specimen consists of a shave biopsy measuring 10x7x2 mm. Jar 0. Specimen C: Received is one formalin filled container labeled with the patient's name and designated right thigh. The specimen consists of a shave biopsy measuring 8x8x1 mm. Jar 0. Specimen D: Received is one formalin filled container labeled with the patient's name and designated left inner forearm. The specimen consists of a shave biopsy measuring 5x5x1 mm. Jar 0. 4 6:07 PM [facility] DERMATOPATHOLOGY LABORATORY Microscopic Description Specimen A. SKIN, left chest: The epidermis shows parakeratosis, full thickness disorderly maturation of keratinocytes, mitoses at different levels, and dyskeratotic cells. Specimen B. SKIN, right forearm: The epidermis shows parakeratosis, full thickness disorderly maturation of keratinocytes, mitoses at different levels, and dyskeratotic cells. Specimen C. SKIN, right thigh: The epidermis shows parakeratosis, full thickness disorderly maturation of keratinocytes, mitoses at different levels, and dyskeratotic cells. Specimen D. SKIN, left inner forearm: The epidermis shows parakeratosis, full thickness disorderly maturation of keratinocytes, mitoses at different levels, and dyskeratotic cells. 4 6:07 PM CDT DERMATOPATHOLOGY LABORATORY Disclaimer An external and internal positive and negative controls are appropriate for the histochemical, immunohistochemical and immunofluorescence stain(s) in this case (if any), except where stated explicitly. The performance characteristics of the stain(s) cited in this report were developed and its performance characteristic determined by the Dermatopathology Laboratory at [facility], directed by Dr. Miya Peralta. These tests need not be, and therefore are not, approved by the [place] Food and Drug Administration. The tests are used for clinical purposes. Billing Codes Specimen Charges Stain Charges 58904 65111 27162 85802 1 1 1 1 4 6:07 PM CDT DERMATOPATHOLOGY LABORATORY Embedded Images 4 6:07 PM CDT DERMATOPATHOLOGY LABORATORY Pathology/Cytology TISSUE SPECIMEN FROM SKIN / Unknown 11/17/2023 10:14 AM CDT 11/17/2023 3:11 PM CDT Miscellaneous samples (specimen) TISSUE SPECIMEN FROM SKIN / Unknown 11/17/2023 10:14 AM CDT 11/17/2023 3:11 PM CDT Miscellaneous samples (specimen) TISSUE SPECIMEN FROM SKIN / Unknown 11/17/2023 10:14 AM CDT 11/17/2023 3:11 PM CDT Miscellaneous samples (specimen) TISSUE SPECIMEN FROM SKIN / Unknown 11/17/2023 10:14 AM CDT 11/17/2023 3:11 PM CDT us Carol Meyers DO LAB - PATHOLOGY/CYTOLOGY ORDERABLES Edited Result - Final DERMATOPATHOLOGY LABORATORY [facility] - Department of Dermatology [address] [place] [address] [place] [address], [facility] [phone] documented in this encounter Visit Diagnoses Not on filedocumented in this encounter
--- OUTSIDE RECORDS SUMMARY | 2024-10-17 14:33 | XMS_ITS | Encounter Summary ---
Author Organization [facility] Address [address] [facility] [place] [address] Care Team Providers Care Primer Charging Tool Setter Name Role Phone Unavailable Primary Care Provider Unavailabl e Encounter Details Date Type Department Care Team (Late st Contact Info) Description 12/10/2023 Lab Requisition [facility] - DermPath Lab [address] [facility] [place] [id number] Carol Meyers DO [address] [facility] [address] [place] [address] Social History Tobacco Use Types Packs/Day Years Used Date Smoking Tobacco: Never Assessed Comments Unknown Sex and Gender Information Value Date Recorded Sex Assigned at Not on file Legal Sex Female 6:09 PM WIRELESS SALES ASSOCIATE Gender Identity Not on file Sexual Orientation Not on file documented as of this encounter Plan of Treatment Not on file documented as of this encounter Procedures Procedure Name Priority Date/Time Associated Diagnosis Comments DERMATOPATHOLOGY Routine 12/10/2023 8:16 AM CDT documented in this encounter Results * DERMATOPATHOLOGY (12/10/2023 8:16 AM CDT) Case Report Dermatopathology Report Case: [id number] Authorizing Provider: Carol Meeyrs DO Collected: 12/10/2023 08:16 AM Ordering Location: [facility] - Received: 12/10/2023 03:41 PM DermPath Lab Pathologist: Liset Freeman MD Specimen: Skin, left chest 4 1:56 PM CDT DERMATOPATHOLOGY LABORATORY Final Diagnosis Specimen A. SKIN, left chest: DERMAL SCAR RESIDUAL SQUAMOUS CELL CARCINOMA NOT IDENTIFIED (L90.5) 4 1:56 PM CDT DERMATOPATHOLOGY LABORATORY at 1356 CDT Clinical History BX proven SCCIS 1:56 PM CDT DERMATOPATHOLOGY LABORATORY Gross Description Specimen A: Received is one formalin filled container labeled with the patient's name and designated left chest.The specimen consists of an ellipse measuring [id number] mm and is oriented with the suture/notch at the 12 o'clock position labeled on the requisition. The 12 to 6 o'clock margin is inked green. The 6 o'clock to 12 o'clock margin is inked red. The 12 o'clock tip is submitted in cassette 1. The 6 o'clock tip is submitted in cassette 2. The remainder of the ellipse is serially sectioned and submitted in cassettes 2-4. Jar 0. 1:56 PM CDT DERMATOPATHOLOGY LABORATORY Microscopic Description Specimen A. SKIN, left chest: There are fibroblasts and collagen bundles oriented parallel to the skin surface. There are elongated blood vessels, some of which are oriented perpendicular to the skin surface. No residual squamous cell carcinoma is identified. 1:56 PM CDT DERMATOPATHOLOGY LABORATORY Disclaimer An external and internal positive and negative controls are appropriate for the histochemical, immunohistochemical and immunofluorescence stain(s) in this case (if any), except where stated explicitly. The performance characteristics of the stain(s) cited in this report were developed and its performance characteristic determined by the Dermatopathology Laboratory at [facility], directed by Dr. Miya Peralta. These tests need not be, and therefore are not, approved by the [place] Food and Drug Administration. The tests are used for clinical purposes. Billing Codes Specimen Charges Stain Charges 88720 1 1:56 PM CDT DERMATOPATHOLOGY LABORATORY Embedded Images 1:56 PM CDT DERMATOPATHOLOGY LABORATORY Pathology/Cytolo gy TISSUE SPECIMEN FROM SKIN / Unknown 12/10/2023 8:16 AM CDT 12/10/2023 3:41 PM CDT us Carol Meyers DO LAB - PATHOLOGY/CYTOLOGY ORDERABLES Final Result DERMATOPATHOLOGY LABORATORY [facility] - Department of Dermatology [address] 3[address] Floor [place], [place] [id number] [place] [address] documented in this encounter Visit Diagnoses Not on filedocumented in this encounter
--- OUTSIDE RECORDS SUMMARY | 2024-10-17 14:33 | XMS_ITS | Encounter Summary ---
Author Organization [facility] Address [address] [facility] [place] [address] Care Team Providers Care Structural Steel Fitter Name Role Phone Unavailable Primary Care Provider Unavailabl e Encounter Details Date Type Department Care Team (Late st Contact Info) Description 04/05/2019 Lab Requisition [facility] DermPath Lab [address] [facility] [place] [id number] Carol Meyers DO [address] [facility] [address] [place] [address] Social History Tobacco Use Types Packs/Day Years Used Date Smoking Tobacco: Never Assessed Comments Unknown Sex and Gender Information Value Date Recorded Sex Assigned at Not on file Legal Sex Female 6:09 PM FUNERAL DIRECTOR/EMBALMER/OWNER Gender Identity Not on file Sexual Orientation Not on file documented as of this encounter Plan of Treatment Not on file documented as of this encounter Procedures Procedure Name Priority Date/Time Associated Diagnosis Comments DERMATOPATHOLOGY Routine 04/04/2019 12:0 0 AM FUNERAL DIRECTOR/EMBALMER/OWNER documented in this encounter Results * DERMATOPATHOLOGY (04/04/2019 12:00 AM FUNERAL DIRECTOR/EMBALMER/OWNER) Case Report Dermatopathology Report Case: [id number] Authorizing Provider: Carol Meyers DO Collected: 04/04/2019 12:00 AM Ordering Location: [facility] DermPath Lab Received: 04/05/2019 07:02 AM Pathologist: Liset Freeman MD Specimens: A) - Skin, left chest B) - Skin, right hand 0 5:09 PM FUNERAL DIRECTOR/EMBALMER/OWNER DERMATOPATHOLOGY LABORATORY Final Diagnosis Specimen A. SKIN, left chest: BASAL CELL CARCINOMA, NODULAR TYPE (C44.519) Specimen B. SKIN, right hand: BENIGN VERRUCOUS KERATOSIS, INFLAMED (L82.1) (see microscopic description) 0 5:09 PM [facility] DERMATOPATHOLOGY LABORATORY at 1709 FUNERAL DIRECTOR/EMBALMER/OWNER Clinical History A-B: R/O NMSC. 0 5:09 PM [facility] DERMATOPATHOLOGY LABORATORY Gross Description Specimen A: Received is one formalin filled container labeled with the patient's name and designated left chest. The specimen consists of a shave (2 pieces) measuring [id number] & 1h9b8um. Jar 0. Specimen B: Received is one formalin filled container labeled with the patient's name and designated right hand. The specimen consists of a shave measuring 0o5n8tl. Jar 0. 0 5:09 PM [facility] DERMATOPATHOLOGY LABORATORY Microscopic Description Specimen A. SKIN, left chest: Within the dermis there are aggregates of basaloid cells with a high nuclear to cytoplasmic ratio and peripheral palisading. Specimen B. SKIN, right hand: Sections show hyperkeratosis, papillomatosis, hypergranulosis, and acanthosis. Inflammatory cells are present within the dermis. These histological findings can be seen in a verruca vulgaris or a seborrheic keratosis. Additional deeper sections were obtained and reviewed. 0 5:09 PM [facility] DERMATOPATHOLOGY LABORATORY Disclaimer An external and internal positive and negative controls are appropriate for the histochemical, immunohistochemical and immunofluorescence stain(s) in this case (if any), except where stated explicitly. The performance characteristics of the stain(s) cited in this report were developed and its performance characteristic determined by the Dermatopathology Laboratory at [facility], directed by Dr. Miya Peralta. These tests need not be, and therefore are not, approved by the [place] Food and Drug Administration. The tests are used for clinical purposes. Billing Codes Specimen Charges Stain Charges 87881 18958 1 1 0 5:09 PM [facility] DERMATOPATHOLOGY LABORATORY Embedded Images 0 5:09 PM [facility] DERMATOPATHOLOGY LABORATORY Pathology/Cytology TISSUE SPECIMEN FROM SKIN / Unknown 04/04/2019 04/05/2019 7:02 AM FUNERAL DIRECTOR/EMBALMER/OWNER Miscellaneous samples (specimen) TISSUE SPECIMEN FROM SKIN / Unknown 04/04/2019 04/05/2019 7:02 AM FUNERAL DIRECTOR/EMBALMER/OWNER Carol Meyers DO LAB - PATHOLOGY/CYTOLOGY ORDERABLES Final Result DERMATOPATHOLOGY LABORATORY [facility] - Department of Dermatology [facility] [facility], 5th Floor Lab [address] [phone] documented in this encounter Visit Diagnoses Not on filedocumented in this encounter
== END 2024-10-17 14:29 | disposition home or self-care (01) ==
LOC: ANHFOHIMG 14:29
PROVIDERS: PCP Internal Medicine; Visit Provider Clinical Nurse Specialist
DX: M81.0 Age-related osteoporosis without current pathological fracture (principal); M85.89 Other specified disorders of bone density and structure, multiple sites; Z78.0 Asymptomatic menopausal state
CPT/HCPCS: 77080

== ENCOUNTER 2025-01-26 13:38 | Emergency (ER) | payer MEDICARE, SELFPAY ==
[2025-01-26 13:48] VITALS: BP 120/67; PULSE 77; RESP 24; TEMP 36.6; O2SAT 96
--- NOTE | 2025-01-26 14:23 | ED.SOB ---
HPI - SOB/Dyspnea General Chief Complaint: Upper Respiratory Infection Stated Complaint: cough/trouble breathing Time Seen by Provider: 01/26/25 14:00 Source: patient and RN notes reviewed Mode of arrival: ambulatory Limitations: no limitations History of Present Illness HPI Narrative: A 85-year-old female presents to the [facility] Care complaining of cough and trouble breathing, patient says she says it is related to her allergies. Patient denies any congestion, runny nose, fevers, body aches, chills, chest pain, nausea vomiting, diarrhea, or any other symptoms. Patient has been using her inhalers at a prescribed by her fuel efficient aircraft designer and says is not helping with her problems breathing. Patient's is worse with exertion. Patient reports a dry nonproductive cough. Patient is currently prescribed oral medications as well for her allergies by her fuel efficient aircraft designer. Patient is not contacted her PCP your fuel efficient aircraft designer about her symptoms. Patient said it has been gone since November, said got better now it is getting worse. Patient has a significant health history of coronary artery disease, chronic kidney disease, cardiac stents my blood pressure, hypothyroidism, high cholesterol. Related Data Home Medications ?Medication ?Instructions ?Recorded ?Confirmed ?Last Taken ?Type aspirin 81 mg tablet,delayed 81 mg PO DAILY 01/11/19 01/26/25 Unknown History release atorvastatin 40 mg tablet 40 mg PO DAILY 01/11/19 01/26/25 Unknown History cetirizine 10 mg tablet (Zyrtec) 5 mg PO DAILY PRN Allergy Symptoms 01/11/19 01/26/25 Unknown History fluticasone propionate 50 See Rx Instructions intranasal 01/11/19 11/28/24 Unknown History mcg/actuation nasal DAILY spray,suspension fluticasone fur. 100 mcg-umeclid 1 inh inhalation DAILY 09/26/20 11/28/24 Unknown History 62.5 mcg-vilant 25 mcg inhalat.powder (Trelegy Ellipta) cholecalciferol (vitamin D3) 125 125 mcg PO DAILY 08/04/23 01/26/25 Unknown History mcg (5,000 unit) capsule lutein 6 mg capsule 6 mg PO DAILY 08/04/23 11/28/24 Unknown History mecobalamin (vitamin B12) 1,000 1,000 mcg PO DAILY 08/04/23 11/28/24 Unknown History mcg chewable tablet (B12 Active) pyridoxine (vitamin B6) 10 mg 10 mg PO DAILY 08/04/23 11/28/24 Unknown History tablet vitamin E (dl, acetate) 90 mg (200 90 mg PO DAILY 08/04/23 11/28/24 Unknown History unit) capsule amlodipine 5 mg tablet 5 mg PO DAILY 01/11/24 01/26/25 Unknown History ipratropium bromide 21 mcg (0.03 2 spray intranasal DAILY 09/13/24 12/12/24 Unknown History %) nasal spray Allergies Allergy/AdvReac Type Severity Reaction Status Date / Time alendronate sodium Allergy Unknown upset Verified 01/26/25 13:42 stomach erythromycin base Allergy Unknown Nausea Verified 01/26/25 13:42 Sulfa (Sulfonamide Allergy Unknown Pt does Verified 01/26/25 13:42 Antibiotics) not remember reaction Review of Systems Review of Systems: CONSTITUTIONAL: Denies fever, chills, or sweats. EYES: Denies visual changes, redness, or discharge. ENT: Denies rhinorrhea, congestion, sore throat, or otalgia. CARDIOVASCULAR: Denies chest pain, palpitations, orthopnea, dizziness, lightheadedness or edema. RESPIRATORY: Positive for difficulty breathing and cough. GASTROINTESTINAL: Denies abdominal pain, nausea, vomiting, or diarrhea. GENITOURINARY: Denies dysuria or hematuria. SKIN: Denies rash or itching. MUSCULOSKELETAL: Denies back pain, joint pain, or myalgia. NEUROLOGIC: Denies headache, numbness, or weakness. PSYCHIATRIC: Denies anxiety or depression. All other systems reviewed are negative, except as documented in HPI. [facility] Past Medical History Medical History Pre-operative clearance Encounter to establish care Hospital discharge follow-up Lightheadedness Degeneration of lumbar or lumbosacral intervertebral disc Headache Cataract Orthostatic hypotension Hypothyroid Arthritis GERD (gastroesophageal reflux disease) Bronchitis Asthma HLD (hyperlipidemia) HTN (hypertension) History of angina CAD (coronary artery disease) Myocardial infarction CVA (cerebral vascular accident) Surgical History Surgical History H/O heart artery stent H/O cardiac catheterization Family History Family History Father Family history of cardiovascular disease Mother Family history of cardiovascular disease Other Cerebrovascular accident Family history of allergic disorder Social History Social History Smoking status: Never smoker Alcohol intake: current Alcohol use details: occasionally Substance use type: does not use Lack of Transportation: No Lack of Food: Never True Current Housing: I Have Housing Concerned About Future Housing: No Difficulty Paying Gas/Electric Bills: No Difficulty Paying for Meds: No Currently Unemployed: No Education: High School Diploma/GED Difficulty w/ Childcare or Family Care: No Comments At the time of my signature, I reviewed and agree with the nursing past medical, surgical, social, and family history. There is no relevant family history pertinent to the patient complaint. Exam Narrative: GENERAL: This is a well-nourished, well-developed adult, in no apparent distress. They are non ill-appearing, nontoxic appearing. HEAD: normocephalic, atraumatic. EYES: Sclera clear/white. Conjunctiva normal. Vision is grossly intact. Extraocular movements intact EARS: External ears normal, auditory canals clear and without drainage, TMs normal without perforation. Hearing grossly intact. NOSE: External nose normal with no obvious nasal discharge, nasal turbinates without redness, no rhinorrhea. THROAT: Mucous membranes moist, posterior pharynx clear, without erythema or swelling. Uvula midline. NECK: Neck supple, non-tender without lymphadenopathy, masses or thyromegaly. CARDIOVASCULAR: Regular rate and rhythm without murmurs, gallops, or rubs. RESPIRATORY: Clear to auscultation. Breath sounds equal bilaterally. No wheezes, rales, or rhonchi. Respiratory rate normal, respiratory effort nonlabored, no respiratory distress SKIN: warm, Dry, intact with no suspicious lesions or rash, good texture and turgor. NEURO: awake, alert, and oriented to person, place and time. There were no obvious focal neurologic abnormalities. EXTREMITIES: No joint tenderness, effusion, or edema noted. BACK: Nontender without deformity. Course Course Level of Care: Express Care Visit Vital Signs Vital signs: Vital Signs Temperature 97.9 F 01/26/25 13:48 Pulse Rate 77 01/26/25 13:48 Respiratory Rate 24 H 01/26/25 13:48 Blood Pressure 120/67 01/26/25 13:48 Pulse Oximetry 96 01/26/25 13:48 Oxygen Delivery Room Air 01/26/25 13:48 Temperature 97.9 F 01/26/25 13:48 Pulse Rate 77 01/26/25 13:48 Respiratory Rate 24 H 01/26/25 13:48 Blood Pressure 120/67 01/26/25 13:48 Pulse Oximetry 96 01/26/25 13:48 Oxygen Delivery Room Air 01/26/25 13:48 MDM MDM Narrative Medical decision making narrative: No evidence of infection on exam. Lung sounds clear to auscultation, no obvious respiratory distress. Vital signs hemodynamically stable. Patient nontoxic appearing, no apparent distress. Patient refusing have EKG performed, given her history I explained to her it is important to obtain EKG to rule out any cardiac explanation of her symptoms especially given her history of heart disease and kidney disease. Patient says she does not believe the EKG is necessary and says she will contact her acid maker tomorrow if she needs one. Patient also says she does not really feel like she is having that much trouble breathing and says it is just her allergies. Patient only uses inhalers and, antihistamines another allergy medications prescribed to manage by her fuel efficient aircraft designer. Cannot rule out cardiac etiology of patient's symptoms given exam findings and history. Given patient's symptoms, it is recommend the patient seek a higher level care and proceed immediately to the emergency department. Patient is refusing the go the hospital. Patient has chosen to refuse further care. Risks of an incomplete evaluation and treatment were discussed with the patient, including but not limited to potential for , worsening condition, or permanent disability. Patient understand these risks, but still desires to refuse further care. Patient recommended to follow up with PCP in the next possible interval. Specifically, patient was told they can return to the ED at any time to resume care. Patient said she would leave against medical advice. RN informed me she refused to sign AMA paperwork but then signed a refusal to sign section. Differential Diagnosis Differential Diagnosis: ACS, congestive heart failure, pneumonia, asthma, COPD, bronchitis Critical Care Time Critical Care Time Critical Care Time: No Discharge Plan Discharge Clinical Impression: Difficulty breathing Cough Qualifiers: Cough type: chronic Qualified Code(s): R05.3 - Chronic cough Patient Disposition: Left Against Medical Advice Condition: Stable Patient Language: Citizen Of [place] Prescriptions: No Action albuterol sulfate [ProAir HFA] 90 mcg/actuation HFA aerosol inhaler 2 puff INHALATION Q4H PRN (Reason: Shortness Of Breath) Qty: 8.5 1RF Patient Comments: . lutein 6 mg capsule 6 mg PO DAILY Rx Instructions: give with meal/snack mecobalamin (vitamin B12) [B12 Active] 1,000 mcg tablet,chewable 1,000 mcg PO DAILY vitamin E (dl, acetate) 90 mg (200 unit) capsule 90 mg PO DAILY pyridoxine (vitamin B6) 10 mg tablet 10 mg PO DAILY cholecalciferol (vitamin D3) 125 mcg (5,000 unit) capsule 125 mcg PO DAILY amlodipine 5 mg tablet 5 mg PO DAILY levothyroxine 75 mcg tablet 75 mcg PO DAILY Qty: 90 3RF atenolol 50 mg tablet 50 mg PO BID Qty: 180 1RF ipratropium bromide 21 mcg (0.03 %) spray,non-aerosol 2 spray intranasal DAILY cetirizine [Zyrtec] 10 mg tablet 5 mg PO DAILY PRN (Reason: Allergy Symptoms) atorvastatin 40 mg tablet 40 mg PO DAILY aspirin 81 mg tablet,delayed release (DR/EC) 81 mg PO DAILY fluticasone propionate 50 mcg/actuation spray,suspension See Rx Instructions NASAL DAILY Rx Instructions: 1-2 sprays intranasal daily; Trelegy Ellipta 100-62.5-25 mcg blister with device 1 inh inhalation DAILY Prolia 60 mg/mL syringe 60 mg subcut [id number] Qty: 1 3RF pantoprazole 40 mg tablet,delayed release (DR/EC) See Rx Instructions .ROUTE .COMPLEX Qty: 90 1RF Dose Instruction: TAKE 1 TABLET BY MOUTH IN THE MORNING Rx Instructions: TAKE 1 TABLET BY MOUTH IN THE MORNING valsartan 160 mg tablet 320 mg PO DAILY Qty: 180 1RF Follow-up/Referrals: Norman Almonte DO [Primary Care Provider, Internal Medicine] Time of Disposition: 14:17
== END 2025-01-26 14:17 | disposition left against medical advice (07) ==
PROVIDERS: PCP Internal Medicine
DX: R06.00 Dyspnea, unspecified (principal); R05.3 Chronic cough; I13.10 Hypertensive heart and chronic kidney disease without heart failure, with stage 1 through stage 4 chronic kidney disease, or unspecified chronic kidney disease; N18.9 Chronic kidney disease, unspecified; I25.110 Atherosclerotic heart disease of native coronary artery with unstable angina pectoris; E03.9 Hypothyroidism, unspecified; E78.00 Pure hypercholesterolemia, unspecified; I25.2 Old myocardial infarction; K21.9 Gastro-esophageal reflux disease without esophagitis; J45.909 Unspecified asthma, uncomplicated; M19.90 Unspecified osteoarthritis, unspecified site; Z95.5 Presence of coronary angioplasty implant and graft; Z79.82 Long term (current) use of aspirin
CPT/HCPCS: 99211; G0463

== ENCOUNTER 2025-01-27 19:37 | Emergency (ER) | payer MEDICARE, SELFPAY ==
--- NOTE | ~2025-01-27 | CT_ITS ---
EXAMINATION: CTA chest PE protocol DATE: 01/28/2025 02:49 INDICATION: Shortness of breath. TECHNIQUE: Computed tomography angiography (CTA) of the chest was performed with 100 mL Omnipaque-350 intravenous contrast timed to evaluate the pulmonary arteries. Coronal maximum intensity projection 3D-reconstructions were created by the technologist. Automated exposure control and iterative reconstruction technique were employed. The dose-length product was 210.62 mGy-cm. COMPARISON: None. FINDINGS: There is mild scarring at the lung apices. There is a 6 mm nodule in left lung upper lobe. There is mild atelectasis bilaterally. There are small areas of crazy paving pattern in right middle lobe and left lower lobe, consistent with pneumonia versus infarct. A calcified left lung nodule and calcified left hilar lymph nodes are consistent with old granulomatous disease. No pleural effusion. There are acute pulmonary emboli in all lobes. There is right ventricular enlargement of the heart, consistent with right heart strain. There are coronary artery calcifications. Calcifications in the liver and spleen are consistent with old granulomatous disease. There is thoracic kyphosis and severe spondylosis. There is mild chronic anterior wedging of multiple thoracic vertebral bodies. IMPRESSION: 1. Extensive bilateral acute pulmonary emboli with right heart strain. 2. Small areas of crazy paving pattern in right middle lobe and left lower lobe, consistent with pneumonia versus infarct. 3. 6 mm pulmonary nodule, probably benign. Consider noncontrast low-dose chest CT in 6-12 months. Reviewed, dictated and finalized at location E. R DRIER OPERATOR IMPRESSION: 1. Extensive bilateral acute pulmonary emboli with right heart strain. 2. Small areas of crazy paving pattern in right middle lobe and left lower lobe , consistent with pneumonia versus infarct. 3. 6 mm pulmonary nodule, probably benign. Consider noncontrast low-dose chest CT in 6-12 months.
--- NOTE | ~2025-01-27 | XR_ITS ---
EXAMINATION: XR chest 2V 01/27/2025 20:20 INDICATION: Shortness of breath PROCEDURE: 2 view chest COMPARISON: Comparison to multiple prior studies sequentially, with oldest reviewed study dated 06/15/2007. FINDINGS: The lungs are clear. The cardiomediastinal silhouette is within normal limits. There are no pleural effusions. There is no pneumothorax suspected. IMPRESSION: 1: NO ACUTE CARDIOPULMONARY DISEASE. Reviewed, dictated and finalized at location I. NDARY SPECIAL EDUCATION TEACHER
--- OUTSIDE RECORDS SUMMARY | 2025-01-27 19:40 | XMS_ITS | Encounter Summary ---
Author Organization [facility] Address [address] [facility] [place] [address] Care Team Providers Care Distributing Clerk Name Role Phone Unavailable Primary Care Provider Unavailabl e Encounter Details Date Type Department Care Team (Late st Contact Info) Description 04/05/2019 Lab Requisition [facility] DermPath Lab [address] [facility], [place] [id number] Carol Meyers DO [address] [facility] 3 [place] [address] Social History Tobacco Use Types Packs/Day Years Used Date Smoking Tobacco: Never Assessed Comments Unknown Sex and Gender Information Value Date Recorded Sex Assigned at Not on file Legal Sex Female 6:09 PM OFFICE SYSTEMS TECHNOLOGY INSTRUCTOR Gender Identity Not on file Sexual Orientation Not on file documented as of this encounter Plan of Treatment Not on file documented as of this encounter Procedures Procedure Name Priority Date/Time Associated Diagnosis Comments DERMATOPATHOLOGY Routine 04/04/2019 12:0 0 AM OFFICE SYSTEMS TECHNOLOGY INSTRUCTOR documented in this encounter Results * DERMATOPATHOLOGY (04/04/2019 12:00 AM OFFICE SYSTEMS TECHNOLOGY INSTRUCTOR) Case Report Dermatopathology Report Case: [id number] Authorizing Provider: Carol Meyers DO Collected: 04/04/2019 12:00 AM Ordering Location: [facility] DermPath Lab Received: 04/05/2019 07:02 AM Pathologist: Liset Freeman MD Specimens: A) - Skin, left chest B) - Skin, right hand 0 5:09 PM OFFICE SYSTEMS TECHNOLOGY INSTRUCTOR DERMATOPATHOLOGY LABORATORY Final Diagnosis Specimen A. SKIN, left chest: BASAL CELL CARCINOMA, NODULAR TYPE (C44.519) Specimen B. SKIN, right hand: BENIGN VERRUCOUS KERATOSIS, INFLAMED (L82.1) (see microscopic description) 0 5:09 PM [facility] DERMAT[facility] LABORATORY at 1709 OFFICE SYSTEMS TECHNOLOGY INSTRUCTOR Clinical History A-B: R/O NMSC. 0 5:09 PM [facility] DER[facility] LAB[facility]ATORY Gross Description Specimen A: Received is one formalin filled container labeled with the patient's name and designated left chest. The specimen consists of a shave (2 pieces) measuring 9y1s1qq & 1j4v3nq. Jar 0. Specimen B: Received is one formalin filled container labeled with the patient's name and designated right hand. The specimen consists of a shave measuring 0k6g8dc. Jar 0. 0 5:09 PM [facility] DER[facility] LAB[facility]ORY Microscopic Description Specimen A. SKIN, [...] were obtained and reviewed. 0 5:09 PM [facility] DER[facility] LAB[facility]ATORY Disclaimer An external and internal positive and negative controls are appropriate for the histochemical, immunohistochemical and immunofluorescence stain(s) in this case (if any), except where stated explicitly. The performance characteristics of the stain(s) cited in this report were developed and its performance characteristic determined by the Dermatopathology Laboratory at [facility], directed by Dr. Miya Peralta. These tests need not be, and therefore are not, approved by the [place] Food and Drug Administration. The tests are used for clinical purposes. Billing Codes Specimen Charges Stain Charges 73020 94787 1 1 0 5:09 PM [facility] DERMAT[facility] LAB[facility]ATORY Embedded Images 0 5:09 PM [facility] DER[facility] LAB[facility]ATORY Pathology/Cytology TISSUE SPECIMEN FROM SKIN / Unknown 04/04/2019 04/05/2019 7:02 AM OFFICE SYSTEMS TECHNOLOGY INSTRUCTOR Miscellaneous samples (specimen) TISSUE SPECIMEN FROM SKIN / Unknown 04/04/2019 04/05/2019 7:02 AM OFFICE SYSTEMS TECHNOLOGY INSTRUCTOR Carol Meyers DO LAB - PATHOLOGY/CYTOLOGY ORDERABLES Final Result DERMATOPATHOLOGY LABORATORY [facility] - Department of Dermatology [facility] [facility], 5th Floor Lab B [address] [phone] documented in this encounter Visit Diagnoses Not on filedocumented in this encounter
--- OUTSIDE RECORDS SUMMARY | 2025-01-27 19:40 | XMS_ITS | Encounter Summary ---
Author Organization [facility] Address [address] [facility] [place] [address] Care Team Providers Care Certified Phlebotomy Technician Name Role Phone Unavailable Primary Care Provider Unavailabl e Encounter Details Date Type Department Care Team (Late st Contact Info) Description 12/15/2023 Lab Requisition [facility] - DermPath Lab [address] [facility] [place] [phone] Carol Meyers DO [address] 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 Gender Identity Not on file Sexual Orientation Not on file documented as of this encounter Plan of Treatment Not on file documented as of this encounter Procedures Procedure Name Priority Date/Time Associated Diagnosis Comments DERMATOPATHOLOGY Routine 12/15/2023 11:3 8 AM CDT documented in this encounter Results * DERMATOPATHOLOGY (12/15/2023 11:38 AM CDT) Case Report Dermatopathology Report Case: [id number] Authorizing Provider: Carol Meyers DO Collected: 12/15/2023 11:38 AM Ordering Location: [facility] - Received: 12/15/2023 04:37 PM DermPath Lab Pathologist: Jenniffer Chen MD Specimen: Skin, right thigh 4:05 PM CDT DERMATOPATHOLOGY LABORATORY Final Diagnosis Specimen A. 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 The specimen consists of a non-oriented ellipse of skin measuring 40o07s7 mm. The epidermal surface is unremarkable. The [...] characteristic determined by the Dermatopathology Laboratory at [facility], directed by Dr. Miya Peralta. These tests need not be, and therefore are not, approved by the [place] Food and Drug Administration. The tests are used for clinical purposes. Billing Codes Specimen Charges Stain Charges 83797 1 4:05 PM CDT DERMATOPATHOLOGY LABORATORY Embedded Images 4:05 PM CDT DERMATOPATHOLOGY LABORATORY Pathology/Cytolo gy TISSUE SPECIMEN FROM SKIN / Unknown 12/15/2023 11:38 AM CDT 12/15/2023 4:37 PM CDT us Carol Meyers DO LAB - PATHOLOGY/CYTOLOGY ORDERABLES Final Result DERMATOPATHOLOGY LABORATORY [facility] - Department of Dermatology [address], [address] [phone] documented in this encounter Visit Diagnoses Not on filedocumented in this encounter
--- OUTSIDE RECORDS SUMMARY | 2025-01-27 19:40 | XMS_ITS | Encounter Summary ---
Author Organization [facility] Address [address] [facility] [place] [address] Care Team Providers Care Dot Net Architect Name Role Phone Unavailable Primary Care Provider Unavailabl e Encounter Details Date Type Department Care Team (Late st Contact Info) Description 12/10/2023 Lab Requisition [facility] - DermPath Lab [address] [facility], [facility] [place] [phone] Carol Meyers DO [address] [facility] 3 [place] [address] Social History Tobacco Use Types Packs/Day Years Used Date Smoking Tobacco: Never Assessed Comments Unknown Sex and Gender Information Value Date Recorded Sex Assigned at Not on file 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 Gender Identity Not on file Sexual Orientation Not on file documented as of this encounter Plan of Treatment Not on file documented as of this encounter Procedures Procedure Name Priority Date/Time Associated Diagnosis Comments DERMATOPATHOLOGY Routine 12/10/2023 8:16 AM CDT documented in this encounter Results * DERMATOPATHOLOGY (12/10/2023 8:16 AM CDT) Case Report Dermatopathology Report Case: [id number] Authorizing Provider: Carol Meyers DO Collected: 12/10/2023 08:16 AM Ordering Location: [facility] Physician [facility] - Received: 12/10/2023 03:41 PM DermPath Lab [...] chest.The specimen consists of an ellipse measuring 03v38d4 mm and is oriented with the suture/notch [...] characteristic determined by the Dermatopathology Laboratory at [facility], directed by Dr. Miya Peralta. These tests need not be, and therefore are not, approved by the [place] Food and Drug Administration. The tests are used for clinical purposes. Billing Codes Specimen Charges Stain Charges 95167 1 1:56 PM CDT DERMATOPATHOLOGY LABORATORY Embedded Images 1:56 PM CDT DERMATOPATHOLOGY LABORATORY Pathology/Cytolo gy TISSUE SPECIMEN FROM SKIN / Unknown 12/10/2023 8:16 AM CDT 12/10/2023 3:41 PM CDT us Carol Meyers DO LAB - PATHOLOGY/CYTOLOGY ORDERABLES Final Result DERMATOPATHOLOGY LABORATORY [facility] - Department of Dermatology [address] Floor [place], [place] [address] [place] [address] documented in this encounter Visit Diagnoses Not on filedocumented in this encounter
--- OUTSIDE RECORDS SUMMARY | 2025-01-27 19:40 | XMS_ITS | Encounter Summary ---
Author Organization [facility] Address [address] [facility] [place] [address] Care Team Providers Care Biology Adjunct Instructor Name Role Phone Unavailable Primary Care Provider Unavailabl e Encounter Details Date Type Department Care Team (Late st Contact Info) Description 12/22/2023 Lab Requisition [facility] - DermPath Lab [address] [facility], [facility] [place] [phone] Carol Meyers DO [address] [facility] 3 [place] [address] Social History Tobacco Use Types Packs/Day Years Used Date Smoking Tobacco: Never Assessed Comments Unknown Sex and Gender Information Value Date Recorded Sex Assigned at Not on file 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 Gender Identity Not on file Sexual Orientation Not on file documented as of this encounter Plan of Treatment Not on file documented as of this encounter Procedures Procedure Name Priority Date/Time Associated Diagnosis Comments DERMATOPATHOLOGY Routine 12/22/2023 12:3 6 PM CDT documented in this encounter Results * DERMATOPATHOLOGY (12/22/2023 12:36 PM CDT) Case Report Dermatopathology Report Case: [id number] Authorizing Provider: Carol Meyers DO Collected: 12/22/2023 12:36 PM Ordering Location: [facility] Physician [facility] - Received: 12/22/2023 02:27 PM [...] of a non-oriented ellipse of skin measuring 73b38f2 mm. The epidermal surface is unremarkable. The [...] characteristic determined by the Dermatopathology Laboratory at [facility], directed by Dr. Miya Peralta. These tests need not be, and therefore are not, approved by the [place] Food and Drug Administration. The tests are used for clinical purposes. Billing Codes Specimen Charges Stain Charges 73679 1 1:06 PM CDT DERMATOPATHOLOGY LABORATORY Embedded Images 1:06 PM CDT DERMATOPATHOLOGY LABORATORY Pathology/Cytolo gy TISSUE SPECIMEN FROM SKIN / Unknown 12/22/2023 12:36 PM CDT 12/22/2023 2:27 PM CDT us Carol Meyers DO LAB - PATHOLOGY/CYTOLOGY ORDERABLES Final Result DERMATOPATHOLOGY LABORATORY [facility] - Department of Dermatology [facility] Medicine [address] [place] [address], [address] [phone] documented in this encounter Visit Diagnoses Not on filedocumented in this encounter
--- OUTSIDE RECORDS SUMMARY | 2025-01-27 19:40 | XMS_ITS | Encounter Summary ---
Author Organization [facility] Address [address] [facility] [place] [address] Care Team Providers Care Print Designer Name Role Phone Unavailable Primary Care Provider Unavailabl e Encounter Details Date Type Department Care Team (Late st Contact Info) Description 04/28/2023 Lab Requisition [facility] - DermPath Lab [address] [facility], [facility] [place] [phone] Carol Meyers DO [address] [facility] 3 [place] [address] Social History Tobacco Use Types Packs/Day Years Used Date Smoking Tobacco: Never Assessed Comments Unknown Sex and Gender Information Value Date Recorded Sex Assigned at Not on file 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 Gender Identity Not on file Sexual Orientation Not on file documented as of this encounter Plan of Treatment Not on file documented as of this encounter Procedures Procedure Name Priority Date/Time Associated Diagnosis Comments DERMATOPATHOLOGY Routine 04/28/2023 2:27 PM SENIOR WEB ANALYST documented in this encounter Results * DERMATOPATHOLOGY (04/28/2023 2:27 PM SENIOR WEB ANALYST) Case Report Dermatopathology Report Case: [id number] Authorizing Provider: Carol Meyers DO Collected: 04/28/2023 02:27 PM Ordering Location: [facility] Physician [facility] - Received: 04/29/2023 01:14 PM DermPath Lab Pathologist: Jenniffer Chen MD Specimen: Skin, left anterior thigh 4 2:29 PM SENIOR WEB ANALYST DERMATOPATHOLOGY LABORATORY Final Diagnosis Specimen A. SKIN, left anterior thigh: DERMAL SCAR RESIDUAL SQUAMOUS CELL CARCINOMA NOT IDENTIFIED (L90.5) 4 2:29 PM SENIOR WEB ANALYST DERMATOPATHOLOGY LABORATORY at 1429 SENIOR WEB ANALYST Clinical History BX Proven SCCIS 4 2:29 PM [facility] DERMATOPATHOLOGY LABORATORY Gross Description Specimen A: Received is one formalin filled container labeled with the patient's name and designated left anterior thigh. The specimen consists of a non-oriented ellipse of skin measuring 35a16m6 mm. Also, there a lesion measuring 6x6x mm. The margin is inked green. The 12 o'clock and 6 o'clock tips are submitted in cassette 1. The remainder of the ellipse is serially sectioned and submitted in cassette 2 - 3. Jar 0. 4 2:29 PM [facility] DERMATOPATHOLOGY LABORATORY Microscopic Description Specimen A. SKIN, left anterior thigh: There are fibroblasts and collagen bundles oriented parallel to the skin surface. There are elongated blood vessels, some of which are oriented perpendicular to the skin surface. No residual squamous cell carcinoma is identified. 2:29 PM [facility] DERMATOPATHOLOGY LABORATORY Disclaimer An external and internal positive and negative controls are appropriate for the histochemical, immunohistochemical and immunofluorescence stain(s) in this case (if any), except where stated explicitly. The performance characteristics of the stain(s) cited in this report were developed and its performance characteristic determined by the Dermatopathology Laboratory at [facility], directed by Dr. Miya Peralta. These tests need not be, and therefore are not, approved by the [place] Food and Drug Administration. The tests are used for clinical purposes. Billing Codes Specimen Charges Stain Charges 97148 1 4 2:29 PM [facility] DERMATOPATHOLOGY LABORATORY Embedded Images 2:29 PM [facility] DERMATOPATHOLOGY LABORATORY Pathology/Cytolo gy TISSUE SPECIMEN FROM SKIN / Unknown 04/28/2023 2:27 PM SENIOR WEB ANALYST 04/29/2023 1:14 PM SENIOR WEB ANALYST us Carol Meyers DO LAB - PATHOLOGY/CYTOLOGY ORDERABLES Final Result DERMATOPATHOLOGY LABORATORY [facility] - Department of Dermatology [address] [place] [address], [facility] [phone] documented in this encounter Visit Diagnoses Not on filedocumented in this encounter
--- OUTSIDE RECORDS SUMMARY | 2025-01-27 19:40 | XMS_ITS | Clinical Summary ---
Author Organization [facility] Address [address] [place] [address] Care Team Providers Care Research Specialist Name Role Phone Unavailable Primary Care Provider Unavailabl e Source Comments [facility],non-owned Affiliates and Associated Physician Practices is amultiple site organization consisting of ambulatory clinics and hospital sitesin [place], [place]. This disclosure is being madepursuant to the Care Everywhere program and may not contain all information available regarding this patient. 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 Gender Identity Not on file Sexual Orientation [...] yrs (1 - 1-dose 75+ series) 2017 DEPRESSION SCREENING 02/24/2024 COVID-19 VACCINE ( - 2024-2 6 season) 2024 INFLUENZA VACCINE (#1) 2024 HEPATITIS B VACCINE [...] on patient's age to complete this topic Procedures Procedure Name Priority Date/Time Associated Diagnosis Comments DERMATOPATHOLOGY Routine 11/15/2024 1:00 PM CDT Neoplasm of uncertain behavior of skin from Last 3 Months Results * DERMATOPATHOLOGY (11/15/2024 1:00 PM CDT) Case Report Dermatopathology Report Case: [id number] Authorizing Provider: Carol Meyers DO Collected: 11/15/2024 01:00 PM Ordering Location: [facility] - Received: 11/16/2024 01:59 PM DermPath Lab Pathologist: Elissa Chen MD Specimen: Skin, right psterior lateral thigh 3:00 PM CDT DERMATOPATHOLOGY LABORATORY Final Diagnosis Specimen A. 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 The specimen consists of a shave biopsy measuring 9x8x1 mm. Jar 0. 3:00 PM CDT DERMATOPATHOLOGY LABORATORY Microscopic Description Specimen A. SKIN, right psterior lateral thigh: The epidermis shows parakeratosis, full thickness disorderly maturation of keratinocytes, mitoses at different levels, and dyskeratotic cells. 3:00 PM CDT DERMATOPATHOLOGY LABORATORY Disclaimer An external and internal positive and negative controls are appropriate for the histochemical, immunohistochemical and immunofluorescence stain(s) in this case (if any), except where stated explicitly. The performance characteristics of the stain(s) cited in this report were developed and its performance characteristic determined by the Dermatopathology Laboratory at [facility], directed by Dr. Miya Peralta. These tests need not be, and therefore are not, approved by the [place] Food and Drug Administration. The tests are used for clinical purposes. Billing Codes Specimen Charges Stain Charges 43219 1 5 3:00 PM CDT DERMATOPATHOLOGY LABORATORY Embedded Images 5 3:00 PM CDT DERMATOPATHOLOGY LABORATORY Pathology/Cytolo gy TISSUE SPECIMEN FROM SKIN / Unknown 11/15/2024 1:00 PM CDT 11/16/2024 1:59 PM CDT Carol Meyers DO LAB - PATHOLOGY/CYTOLOGY ORDERABLES Final Result DERMATOPATHOLOGY LABORATORY [facility] - Department of Dermatology [address], [address] [phone] from Last 3 Months Insurance MEDICARE [facility] MEDICARE [facility]
--- OUTSIDE RECORDS SUMMARY | 2025-01-27 19:40 | XMS_ITS | Clinical Summary ---
Author Organization [facility] [address] Address [address] [place] [address] Care Team Providers Care Space Officer Name Role Phone Avni Shah MD Primary Care Provider [phone] Allergies Active Allergy Reactions Criticality Noted Date [...] 1 tablet (75 mcg total) by mouth ear flap binder before breakfast 03/09/19 25 Active atenoloL (TENORMIN) 50 mg tabletIndications: Coronary artery disease involving [place] coronary artery of [place] heart without angina pectoris,Essential hypertension, benign Take 1 tablet (50 mg total) by mouth 2 (two) times a day 180 tablet 3 04/18/19 25 Active amLODIPine (NORVASC) 5 mg tablet Take 1 tablet (5 mg total) by mouth daily 90 tablet 3 04/18/19 25 026 Active Active Problems Problem Noted Date Diagnosed Date Nonrheumatic tricuspid valve regurgitation 03/26 Coronary artery disease invo lving [place] coronary artery of [place] heart without angina pectoris 03/22/2018 Mixed hyperlipidemia 09/08/2016 Assessment & Plan (03/16/2017 11:47 AM ENTRY LEVEL ELECTRICAL ENGINEER): I advised patient to get 12 hour [...] 09/08/2016 Assessment & Plan (03/16/2017 11:47 AM ENTRY LEVEL ELECTRICAL ENGINEER): She was advised to keep blood pressure [...] are within normal. When patient presented to [facility] with the [place] her potassium was very low. Currently she [...] artery Assessment & Plan (03/16/2017 11:46 AM ENTRY LEVEL ELECTRICAL ENGINEER): Continue aspirin, Plavix, atorvastatin. Assessment & Plan (09/08/2016 12:38 PM CDT): Status post drug-eluting stent to the RCA. Continue aspirin and Brilinta. Continue cardiac rehabilitation. Encounters Date Type Department Care Team Description 12/30/2024 11:29 AM ENTRY LEVEL ELECTRICAL ENGINEER - 12/30/2024 11:59 PM ENTRY LEVEL ELECTRICAL ENGINEER Hospital Encounter [facility] [address] [place] [address] Screening mammogram, encounter for Discharge Disposition: Discharge to home or self care from Last 3 Months Surgical History Surgery Date Site/Laterality Comments CORONARY [...] = 0.6 oz pur e alcohol) Comments No Sex and Gender Information Value Date Recorded Sex Assigned at Not on file Legal Sex Female 12:09 PM CDT Gender Identity Not on file Sexual Orientation Not on file Obstetrics History Para Term AB IAB SAB Ectopic Multiple Livin g Live Births 3 2 Date Outcome GA Total Labor Labor/2nd/3rd Weight Sex Type Anes PTL Sandi A1 A5 Name Clin Last Filed Vital Signs Vital Sign Reading Time Taken Comments Blood Pressure 138/62 04/18/2024 9:33 AM ENTRY LEVEL ELECTRICAL ENGINEER Pulse 62 04/18/2024 9:33 AM ENTRY LEVEL ELECTRICAL ENGINEER Temperature 36.3 C (97.3 F) 04/30/2020 8:16 AM ENTRY LEVEL ELECTRICAL ENGINEER Respiratory Rate 14 09/08/2016 11:49 AM CDT Oxygen Saturation 96% 04/18/2024 9:33 AM ENTRY LEVEL ELECTRICAL ENGINEER Inhaled Oxygen Concentration - - Weight 72.1 kg (159 lb) 04/18/2024 9:33 AM ENTRY LEVEL ELECTRICAL ENGINEER Height 160 cm (5' 3) 04/18/2024 9:33 AM ENTRY LEVEL ELECTRICAL ENGINEER Body Mass Index 28.17 04/18/2024 9:33 AM ENTRY LEVEL ELECTRICAL ENGINEER Plan of Treatment Health Maintenance Due Date Last Done Comments Depression Screening 1942 Fall Risk Assessment 1942 Osteoporosis Screening-Bone Density Scan 1942 Hepatitis B Screening 01/18/1960 DTaP/Tdap/Td Vaccine (1 - Tdap) 06/06/2006 7, 11/25/1994 Well Visit 65+ 2007 Zoster Vaccine (3 of 3) 04/24/2020 02/27/19 21, 11/07/2019, 03/14/2008 Influenza Vaccine (#1) 2024 9, 12/18/2017, 12/23/2016, Additional history exists Pneumococcal vaccine 65+ Completed 10/25/2013, 06/23 Procedures Procedure Name Priority Date/Time Associated Diagnosis Comments SCREENING MAMMOGRAM BILATERAL W EFREM Schedule Routine, Read Routine (OP Routine) 12/30/2024 11:43 AM ENTRY LEVEL ELECTRICAL ENGINEER Screening mammogram, encounter for from Last 3 Months Results * Screening Mammogram Bilateral W Efrem (12/30/2024 11:43 AM ENTRY LEVEL ELECTRICAL ENGINEER) Anatomical Region Laterality Modality Breast Bilateral Mammography Impressions 01/05/2025 2:15 PM ENTRY LEVEL ELECTRICAL ENGINEER Bilateral No evidence of malignancy in either breast. OVERALL BI-RADS FINAL ASSESSMENT: 1 - Negative RECOMMENDATION: Recommend bilateral annual screening mammography. Decision to continue screening mammography should be made based on clinical factors. Narrative 01/05/2025 2:15 PM ENTRY LEVEL ELECTRICAL ENGINEER EXAMINATION: Screening Mammogram Bilateral W Efrem: 12/30/2024 COMPARISON: Relevant prior studies available at the time of interpretation were reviewed, including the most recent mammogram on: 06/24/2022. TECHNIQUE: Mammography was performed with 2D and 3D digital breast tomosynthesis (DBT) images. CAD was utilized. BREAST PARENCHYMAL COMPOSITION: The breasts are almost entirely fatty. FINDINGS: Bilateral There is no suspicious mass, calcification, or architectural distortion in either breast. us Self Screening Mammogram IMG MAMMO PROCEDURES Fi nal Result from Last 3 Months Insurance MEDICARE MEDICARE BLUE CROSS MEDICARE SUPPLEMENT Care Teams Space Officer Relationship Specialty Start Date End Date Avni Shah MD PCP - General Family Medicine 03/24/22
--- OUTSIDE RECORDS SUMMARY | 2025-01-27 19:40 | XMS_ITS | Clinical Summary ---
Author Organization [facility] Address [facility] [place] [address] Care Team Providers Care Merchandising Lead Name Role Phone Rachiddominga Savanah Herminio [facility] Primary Care Provider [phone] Allergies Active Allergy Reactions Criticality Noted Date [...] 2024 12/29/2023, 01/08/2023, 11/20/2021, Additional history exists Influenza Adult (#1) 2024 12/29/2023, 12/18/2022, 12/19/2021, Additional history exists Zoster Vaccines Completed 02/28/2020, 11/07/2019 RSV Immunization or 60+ Years Completed 01/20/2023 Hepatitis A Vaccines Aged Out No long er eligible based on patient's age to complete this topic Meningococcal B Vaccine Aged Out No l onger eligible based on patient's age to complete this topic Meningococcal Vaccine Aged Out No jay mervat eligible based on patient's age to complete this topic RSV Immunizations Under 20 Months Aged Out No longer eligible based on patient's age to complete this topic Medical Devices Implanted Type Area Load Manager Device Identifier Shelf Expiration Date Model / Serial / Lot Tecnis 1-Piece Iol With Tecnis Simplicity Delivery System Implanted:Qty: 1 on 06/20/2024 by Enrique Roman MD at [facility] Lens Left: Eye [employer] 11/11/2025 / / [id number] Insurance [id number] MEDICARE Care Teams Merchandising Lead Relationship Specialty Start Date End Date Savanah Curran, MATTHEW [facility] [facility] [address] [place] [address] PCP - General CLINICAL NURSE SPECIALIST 06/20/24
--- OUTSIDE RECORDS SUMMARY | 2025-01-27 19:40 | XMS_ITS | Encounter Summary ---
Author Organization [facility] Address [address] [facility] [place] [address] Care Team Providers Care Pesticide Use Medical Coordinator Name Role Phone Unavailable Primary Care Provider Unavailabl e Encounter Details Date Type Department Care Team (Late st Contact Info) Description 11/17/2023 Lab Requisition [facility] - DermPath Lab [address] [facility], [facility] [place] [address] Carol Meyers DO [address] [facility] 3 [place] [address] Social History Tobacco Use Types Packs/Day Years Used Date Smoking Tobacco: Never Assessed Comments Unknown Sex and Gender Information Value Date Recorded Sex Assigned at Not on file 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 Jar 0. 4 6:07 PM [facility] DERMATOPATHOLOGY LABORATORY Microscopic Description Specimen A. SKIN, [...] characteristic determined by the Dermatopathology Laboratory at [facility], directed by Dr. Miya Peralta. These tests need not be, and therefore are not, approved by the [place] Food and Drug Administration. The tests are used for clinical purposes. Billing Codes Specimen Charges Stain Charges 30728 96758 24109 64736 1 1 1 1 4 6:07 PM [...] ORDERABLES Edited Result - Final DERMATOPATHOLOGY LABORATORY [facility] - Department of Dermatology [address], [address] [place] [address], [facility] [phone] documented in this encounter Visit Diagnoses Not on filedocumented in this encounter
--- OUTSIDE RECORDS SUMMARY | 2025-01-27 19:40 | XMS_ITS | Encounter Summary ---
Author Organization [facility] Address [address] [facility] [place] [address] Care Team Providers Care Advanced Manufacturing Technician Name Role Phone Unavailable Primary Care Provider Unavailabl e Encounter Details Date Type Department Care Team (Late st Contact Info) Description 04/26/2024 Lab Requisition [facility] - DermPath Lab [address] [facility], [facility] [place] [address] Carol Meyers DO [address] [facility] 3 [place] [address] Social History Tobacco Use Types Packs/Day Years Used Date Smoking Tobacco: Never Assessed Comments Unknown Sex and Gender Information Value Date Recorded Sex Assigned at Not on file Legal Sex Female 6:09 PM VIRTUAL CLASSROOM MANAGER Gender Identity Not on file Sexual Orientation Not on file documented as of this encounter Plan of Treatment Not on file documented as of this encounter Procedures Procedure Name Priority Date/Time Associated Diagnosis Comments DERMATOPATHOLOGY Routine 04/26/2024 1:54 PM VIRTUAL CLASSROOM MANAGER documented in this encounter Results * DERMATOPATHOLOGY (04/26/2024 1:54 PM VIRTUAL CLASSROOM MANAGER) Case Report Dermatopathology Report Case: [id number] Authorizing Provider: Carol Meyers DO Collected: 04/26/2024 01:54 PM Ordering Location: [facility] Physician [facility] - Received: 04/27/2024 04:43 PM DermPath Lab [...] characteristic determined by the Dermatopathology Laboratory at [facility], directed by Dr. Miya Peralta. These tests need not be, and therefore are not, approved by the [place] Food and Drug Administration. The tests are used for clinical purposes. Billing Codes Specimen Charges Stain Charges 06739 70603 36383 1 1 1 5 6:14 PM CDT DERMATOPATHOLOGY LABORATORY Embedded Images 5 6:14 PM CDT DERMATOPATHOLOGY LABORATORY Pathology/Cytology TISSUE SPECIMEN FROM SKIN / Unknown 04/26/2024 1:54 PM VIRTUAL CLASSROOM MANAGER 04/27/2024 4:43 PM VIRTUAL CLASSROOM MANAGER Miscellaneous samples (specimen) TISSUE SPECIMEN FROM SKIN / Unknown 04/26/2024 1:54 PM VIRTUAL CLASSROOM MANAGER 04/27/2024 4:43 PM VIRTUAL CLASSROOM MANAGER Miscellaneous samples (specimen) TISSUE SPECIMEN FROM SKIN / Unknown 04/26/2024 1:54 PM VIRTUAL CLASSROOM MANAGER 04/27/2024 4:43 PM VIRTUAL CLASSROOM MANAGER us Carol Meyers DO LAB - PATHOLOGY/CYTOLOGY ORDERABLES Final Result DERMATOPATHOLOGY LABORATORY [facility] - Department of Dermatology [facility] [address] [place] [address], [address] [phone] documented in this encounter Visit Diagnoses Not on filedocumented in this encounter
--- OUTSIDE RECORDS SUMMARY | 2025-01-27 19:40 | XMS_ITS | Encounter Summary ---
Author Organization [facility] Address [address] [place] [address] Care Team Providers Care Hospice Nurse Practitioner Name Role Phone Unavailable Primary Care Provider Unavailabl e Encounter Details Date Type Department Care Team (Late st Contact Info) Description 11/15/2024 Lab Requisition [facility] - DermPath Lab [address] [facility], [facility] [place] [address] Carol Meyers DO [address] [facility] 3 [place] [address] Neoplasm of uncertain behavior of skin Social History Tobacco Use Types Packs/Day Years Used Date Smoking Tobacco: Never Assessed Comments Unknown Sex and Gender Information Value Date Recorded Sex Assigned at Not on file Legal Sex Female 6:09 PM MANAGER MOBILE Gender Identity Not on file Sexual Orientation Not on file documented as of this encounter Plan of Treatment Not on file documented as of this encounter Procedures Procedure Name Priority Date/Time Associated Diagnosis Comments DERMATOPATHOLOGY Routine 11/15/2024 1:00 PM CDT Neoplasm of uncertain behavior of skin documented in this encounter Results * DERMATOPATHOLOGY (11/15/2024 1:00 PM CDT) Case Report Dermatopathology Report Case: [id number] Authorizing Provider: Carol Meyers DO Collected: 11/15/2024 01:00 PM Ordering Location: [facility] - Received: 11/16/2024 01:59 PM DermPath Lab Pathologist: Elissa Chen MD Specimen: Skin, right psterior lateral thigh 3:00 PM CDT DERMATOPATHOLOGY LABORATORY Final Diagnosis Specimen A. 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 Billing Codes Specimen Charges Stain Charges 63171 1 3:00 PM CDT DERMATOPATHOLOGY LABORATORY Embedded Images 3:00 PM CDT DERMATOPATHOLOGY LABORATORY Pathology/Cytolo gy TISSUE SPECIMEN FROM SKIN / Unknown 11/15/2024 1:00 PM CDT 11/16/2024 1:59 PM CDT us Carol Meyers DO LAB - PATHOLOGY/CYTOLOGY ORDERABLES Final Result DERMATOPATHOLOGY LABORATORY [facility] - Department of Dermatology [address], [address] [phone] documented in this encounter Visit Diagnoses Diagnosis Neoplasm of uncertain behavior of skin documented in this encounter
--- OUTSIDE RECORDS SUMMARY | 2025-01-27 19:40 | XMS_ITS | Encounter Summary ---
Author Organization [facility] Address [address] [facility] [place] [address] Care Team Providers Care Assembly Manager Name Role Phone Unavailable Primary Care Provider Unavailabl e Encounter Details Date Type Department Care Team (Late st Contact Info) Description 03/25/2023 Lab Requisition [facility] - DermPath Lab [address] [facility], [facility] [place] [address] Peggy Alba MD [address] [facility] 3 [place] [address] Social History Tobacco Use Types Packs/Day Years Used Date Smoking Tobacco: Never Assessed Comments Unknown Sex and Gender Information Value Date Recorded Sex Assigned at Not on file Legal Sex Female 6:09 PM HEEL BOOM OPERATOR Gender Identity Not on file Sexual Orientation Not on file documented as of this encounter Plan of Treatment Not on file documented as of this encounter Procedures Procedure Name Priority Date/Time Associated Diagnosis Comments DERMATOPATHOLOGY Routine 03/25/2023 10:1 6 AM HEEL BOOM OPERATOR documented in this encounter Results * DERMATOPATHOLOGY (03/25/2023 10:16 AM HEEL BOOM OPERATOR) Case Report Dermatopathology Report Case: [id number] Authorizing Provider: Peggy Alba MD Collected: 03/25/2023 10:16 AM Ordering Location: [facility] DermPath Lab Received: 03/26/2023 10:51 AM Pathologist: Jenniffer Chen MD Specimen: Skin, left ant thigh 1:23 PM HEEL BOOM OPERATOR DERMATOPATHOLOGY LABORATORY Final Diagnosis Specimen A. SKIN, left ant thigh: SQUAMOUS CELL CARCINOMA IN SITU, PRESENT AT THE BASE OF THE SPECIMEN (D04.72) (see microscopic description and comment) 1:23 PM HEEL BOOM OPERATOR DERMATOPATHOLOGY LABORATORY at [address] HEEL BOOM OPERATOR Clinical History HAK vs. SCC 4 1:23 PM [facility] DERMATOPATHOLOGY LABORATORY Gross Description Specimen A: Received is one formalin filled container labeled with the patient's name and designated left ant thigh. The specimen consists of a shave biopsy measuring 6x5x1 mm. Jar 0. 4 1:23 PM [facility] DERMATOPATHOLOGY LABORATORY Microscopic Description Specimen A. SKIN, left ant thigh: The epidermis shows parakeratosis, full thickness disorderly maturation of keratinocytes, mitoses at different levels, and dyskeratotic cells. The lesion broadly extends to the base of the biopsy. COMMENT: An invasive squamous cell carcinoma cannot be ruled out. 4 1:23 PM [facility] DERMATOPATHOLOGY LABORATORY Disclaimer An external and internal positive and negative controls are appropriate for the histochemical, immunohistochemical and immunofluorescence stain(s) in this case (if any), except where stated explicitly. The performance characteristics of the stain(s) cited in this report were developed and its performance characteristic determined by the Dermatopathology Laboratory at [facility], directed by Dr. Miya Peralta. These tests need not be, and therefore are not, approved by the [place] Food and Drug Administration. The tests are used for clinical purposes. Billing Codes Specimen Charges Stain Charges 31074 1 4 1:23 PM [facility] DERMATOPATHOLOGY LABORATORY Embedded Images 4 1:23 PM [facility] DERMATOPATHOLOGY LABORATORY Pathology/Cytolo gy TISSUE SPECIMEN FROM SKIN / Unknown 03/25/2023 10:16 AM HEEL BOOM OPERATOR 03/26/2023 10:51 AM [facility] Peggy Alba MD LAB - PATHOLOGY/CYTOLOGY OR DERABLES Final Result DERMATOPATHOLOGY LABORATORY [facility] - Department of Dermatology [address], [address] [phone] documented in this encounter Visit Diagnoses Not on filedocumented in this encounter
--- NOTE | 2025-01-27 19:56 | ECG_ITS ---
Test Date: 2025-01-27 20:02:05 Measurements Intervals Bow Rate: 80 P: 61 PA: 174 QRS: 47 QRSD: 86 T: -24 QT: 385 QTc: 445 Interpretive Statements SINUS RHYTHM INFERIOR INFARCT, AGE INDETERMINATE T WAVE ABNORMALIT IN ANTERIOR LEADS- CONSIDER ISCHEMIA BASELINE ARTIFACT- I, II, AVR ABNORMAL ECG No previous ECG available for comparison Electronically Signed On 01-27-2025 20:24:45 RIDING INSTRUCTOR by Nader Resendez D.O.
[2025-01-27 19:58] VITALS: BP 116/60; PULSE 62; RESP 18; TEMP 36.2; O2SAT 93
[2025-01-27 20:19] LABS: Hematocrit 42.3 % (37.0-47.0); Hemoglobin 13.3 g/dL (12.0-15.0); Immature Granulocyte Percent A 0.8 % (0-0.5); Lymphocytes Absolute Auto 1.12 K/mm3 (0.9-3.2); Mean Corpuscular HGB Conc 31.4 g/dl (32-36); Mean Corpuscular Hemoglobin 28.5 pg (26-34); Mean Corpuscular Volume 90.6 fl (80-100); Nucleated Red Blood Cells Absolute Auto 0.000 K/mm3 (0.0-0.012); Nucleated Red Blood Cells Perc 0.0 % (0.0-0.2); Platelet Count Result 294 k/mm3 (150-375); Red Blood Count 4.67 M/mm3 (4.2-5.4); White Blood Count 13.0 K/mm3 (4.5-10.0)
[2025-01-27 20:31] LABS: Alanine Aminotransferase 39 U/L (6-35); Albumin Level 4.3 g/dL (3.5-5.1); Alkaline Phosphatase 159 U/L (38-126); Anion Gap 7 mmol/L (4-12); Aspartate Amino Transferase 54 U/L (14-36); Bilirubin,Total 0.7 mg/dL (0.2-1.3); Blood Urea Nitrogen 16 mg/dL (7-17); Calcium 8.7 mg/dL (8.4-10.2); Carbon Dioxide 21 mmol/L (22-30); Chloride 112 mmol/L (98-107); Estimated CRCL calculation 23 ml/min; Estimated Glomerular Filt Rate 37; Glucose 128 mg/dL (65-110); Potassium 4.1 mmol/L (3.4-5.0); Sodium 140 mmol/L (137-145); Total Protein 7.7 g/dL (6.3-8.2)
[2025-01-27 20:55] LABS: Influenza A QL RT-PCR Negative (Negative); Influenza B QL RT-PCR Negative (Negative); RSV RNA, RT-PCR Negative (Negative); SARS-CoV-2 RNA PCR Negative (Negative)
--- OUTSIDE RECORDS SUMMARY | 2025-01-27 23:37 | XMS_ITS | Encounter Summary ---
Author Organization [facility] Address [address] [facility] [place] [address] Care Team Providers Care Insect Control Inspector Name Role Phone Unavailable Primary Care Provider Unavailabl e Encounter Details Date Type Department Care Team (Late st Contact Info) Description 11/15/2024 Lab Requisition [facility] - DermPath Lab [address] [facility], [facility] [place] [phone] Carol Meyers DO [address] [facility] 3 [place] [address] Neoplasm of uncertain behavior of skin Social History Tobacco Use Types Packs/Day Years Used Date Smoking Tobacco: Never Assessed Comments Unknown Sex and Gender Information Value Date Recorded Sex Assigned at Not on file Legal Sex Female 6:09 PM CURER FOAM RUBBER Gender Identity Not on file Sexual Orientation Not on file documented as of this encounter Plan of Treatment Not on file documented as of this encounter Procedures Procedure Name Priority Date/Time Associated Diagnosis Comments DERMATOPATHOLOGY Routine 11/15/2024 1:00 PM CDT Neoplasm of uncertain behavior of skin documented in this encounter Results * DERMATOPATHOLOGY (11/15/2024 1:00 PM CDT) Case Report Dermatopathology Report Case: [id number] Authorizing Provider: Carol Meyers DO Collected: 11/15/2024 01:00 PM Ordering Location: [facility] - Received: 11/16/2024 01:59 PM [...] characteristic determined by the Dermatopathology Laboratory at [facility], directed by Dr. Miya Peralta. These tests need not be, and therefore are not, approved by the [place] Food and Drug Administration. The tests are used for clinical purposes. Billing Codes Specimen Charges Stain Charges 16148 1 3:00 PM CDT DERMATOPATHOLOGY LABORATORY Embedded Images 3:00 PM CDT DERMATOPATHOLOGY LABORATORY Pathology/Cytolo gy TISSUE SPECIMEN FROM SKIN / Unknown 11/15/2024 1:00 PM CDT 11/16/2024 1:59 PM CDT us Carol Meyers DO LAB - PATHOLOGY/CYTOLOGY ORDERABLES Final Result DERMATOPATHOLOGY LABORATORY [facility] - Department of Dermatology [address], [address] [phone] documented in this encounter Visit Diagnoses Diagnosis Neoplasm of uncertain behavior of skin documented in this encounter
--- OUTSIDE RECORDS SUMMARY | 2025-01-27 23:37 | XMS_ITS | Encounter Summary ---
Author Organization [facility] Address [address] [facility] [place] [address] Care Team Providers Care School Age Lead Teacher Name Role Phone Unavailable Primary Care Provider Unavailabl e Encounter Details Date Type Department Care Team (Late st Contact Info) Description 04/28/2023 Lab Requisition [facility] - DermPath Lab [address] [facility], [facility] [address] Carol Meyers DO [address] [facility] 3 [place] [address] Social History Tobacco Use Types Packs/Day Years Used Date Smoking Tobacco: Never Assessed Comments Unknown Sex and Gender Information Value Date Recorded Sex Assigned at Not on file Legal Sex Female 6:09 PM BUILDING SUPPLIES SALESPERSON RETAIL Gender Identity Not on file Sexual Orientation Not on file documented as of this encounter Plan of Treatment Not on file documented as of this encounter Procedures Procedure Name Priority Date/Time Associated Diagnosis Comments DERMATOPATHOLOGY Routine 04/28/2023 2:27 PM BUILDING SUPPLIES SALESPERSON RETAIL documented in this encounter Results * DERMATOPATHOLOGY (04/28/2023 2:27 PM BUILDING SUPPLIES SALESPERSON RETAIL) Case Report Dermatopathology Report Case: [id number] Authorizing Provider: Carol Meyers DO Collected: 04/28/2023 02:27 PM Ordering Location: [facility] Physician [facility] - Received: 04/29/2023 01:14 PM DermPath Lab Pathologist: Jenniffer Chen MD Specimen: Skin, left anterior thigh 4 2:29 PM BUILDING SUPPLIES SALESPERSON RETAIL DERMATOPATHOLOGY LABORATORY Final Diagnosis Specimen A. SKIN, left anterior thigh: DERMAL SCAR RESIDUAL SQUAMOUS CELL CARCINOMA NOT IDENTIFIED (L90.5) 4 2:29 PM BUILDING SUPPLIES SALESPERSON RETAIL DERMATOPATHOLOGY LABORATORY at 1429 BUILDING SUPPLIES SALESPERSON RETAIL Clinical History BX Proven SCCIS 4 2:29 PM [facility] DERMATOPATHOLOGY LABORATORY Gross Description Specimen A: Received is one formalin filled container labeled with the patient's name and designated left anterior thigh. The specimen consists of a non-oriented ellipse of skin measuring 06i90a7 mm. Also, there a lesion measuring 6x6x mm. The margin is inked green. The 12 o'clock and 6 o'clock tips are submitted in cassette 1. The remainder of the ellipse is serially sectioned and submitted in cassette 2 - 3. Jar 0. 4 2:29 PM [facility] DERMATOPATHOLOGY LABORATORY Microscopic Description Specimen A. SKIN, left anterior thigh: There are fibroblasts and collagen bundles oriented parallel to the skin surface. There are elongated blood vessels, some of which are oriented perpendicular to the skin surface. No residual squamous cell carcinoma is identified. 2:29 PM [facility] DERMATOPATHOLOGY LABORATORY Disclaimer An external and internal positive and negative controls are appropriate for the histochemical, immunohistochemical and immunofluorescence stain(s) in this case (if any), except where stated explicitly. The performance characteristics of the stain(s) cited in this report were developed and its performance characteristic determined by the Dermatopathology Laboratory at [facility], directed by Dr. Miya Peralta. These tests need not be, and therefore are not, approved by the [place] Food and Drug Administration. The tests are used for clinical purposes. Billing Codes Specimen Charges Stain Charges 11259 1 4 2:29 PM [facility] DERMATOPATHOLOGY LABORATORY Embedded Images 2:29 PM [facility] DERMATOPATHOLOGY LABORATORY Pathology/Cytolo gy TISSUE SPECIMEN FROM SKIN / Unknown 04/28/2023 2:27 PM BUILDING SUPPLIES SALESPERSON RETAIL 04/29/2023 1:14 PM BUILDING SUPPLIES SALESPERSON RETAIL us Carol Meyers DO LAB - PATHOLOGY/CYTOLOGY ORDERABLES Final Result DERMATOPATHOLOGY LABORATORY [facility] - Department of Dermatology [address] [place] [address], [facility] [phone] documented in this encounter Visit Diagnoses Not on filedocumented in this encounter
--- OUTSIDE RECORDS SUMMARY | 2025-01-27 23:37 | XMS_ITS | Encounter Summary ---
Author Organization [facility] Address [address] [facility] [place] [address] Care Team Providers Care Waiter/Waitress Take Out Name Role Phone Unavailable Primary Care Provider Unavailabl e Encounter Details Date Type Department Care Team (Late st Contact Info) Description 04/26/2024 Lab Requisition [facility] - DermPath Lab [address] [facility], [facility] [place] [address] Carol Meyers DO [address] [facility] 3 [place] [address] Social History Tobacco Use Types Packs/Day Years Used Date Smoking Tobacco: Never Assessed Comments Unknown Sex and Gender Information Value Date Recorded Sex Assigned at Not on file Legal Sex Female 6:09 PM ADMINISTRATIVE FELLOW Gender Identity Not on file Sexual Orientation Not on file documented as of this encounter Plan of Treatment Not on file documented as of this encounter Procedures Procedure Name Priority Date/Time Associated Diagnosis Comments DERMATOPATHOLOGY Routine 04/26/2024 1:54 PM ADMINISTRATIVE FELLOW documented in this encounter Results * DERMATOPATHOLOGY (04/26/2024 1:54 PM ADMINISTRATIVE FELLOW) Case Report Dermatopathology Report Case: [id number] Authorizing Provider: Carol Meyers DO Collected: 04/26/2024 01:54 PM Ordering Location: [facility] Physician [facility] - Received: 04/27/2024 04:43 PM DermPath [...] purposes. Billing Codes Specimen Charges Stain Charges 78700 86352 42678 1 1 1 5 6:14 PM CDT DERMATOPATHOLOGY LABORATORY Embedded Images 5 6:14 PM CDT DERMATOPATHOLOGY LABORATORY Pathology/Cytology TISSUE SPECIMEN FROM SKIN / Unknown 04/26/2024 1:54 PM ADMINISTRATIVE FELLOW 04/27/2024 4:43 PM ADMINISTRATIVE FELLOW Miscellaneous samples (specimen) TISSUE SPECIMEN FROM SKIN / Unknown 04/26/2024 1:54 PM ADMINISTRATIVE FELLOW 04/27/2024 4:43 PM ADMINISTRATIVE FELLOW Miscellaneous samples (specimen) TISSUE SPECIMEN FROM SKIN / Unknown 04/26/2024 1:54 PM ADMINISTRATIVE FELLOW 04/27/2024 4:43 PM ADMINISTRATIVE FELLOW us Carol Meyers DO LAB - PATHOLOGY/CYTOLOGY ORDERABLES Final Result DERMATOPATHOLOGY LABORATORY [facility] - Department of Dermatology [facility] Medicine [address] [place] [address], [address] Floor [address] [phone] documented in this encounter Visit Diagnoses Not on filedocumented in this encounter
--- OUTSIDE RECORDS SUMMARY | 2025-01-27 23:37 | XMS_ITS | Encounter Summary ---
Author Organization [facility] Address [address] [facility] [place] [address] Care Team Providers Care Disk Sharpener Name Role Phone Unavailable Primary Care Provider Unavailabl e Encounter Details Date Type Department Care Team (Late st Contact Info) Description 04/05/2019 Lab Requisition [facility] DermPath Lab [address] [facility], [place] [phone] Carol Meyers DO [address] [facility] 3 [place] [address] Social History Tobacco Use Types Packs/Day Years Used Date Smoking Tobacco: Never Assessed Comments Unknown Sex and Gender Information Value Date Recorded Sex Assigned at Not on file Legal Sex Female 6:09 PM CHANGE MANAGEMENT LEAD Gender Identity Not on file Sexual Orientation Not on file documented as of this encounter Plan of Treatment Not on file documented as of this encounter Procedures Procedure Name Priority Date/Time Associated Diagnosis Comments DERMATOPATHOLOGY Routine 04/04/2019 12:0 0 AM CHANGE MANAGEMENT LEAD documented in this encounter Results * DERMATOPATHOLOGY (04/04/2019 12:00 AM CHANGE MANAGEMENT LEAD) Case Report Dermatopathology Report Case: [id number] Authorizing Provider: Carol Meyers DO Collected: 04/04/2019 12:00 AM Ordering Location: [facility] DermPath Lab Received: 04/05/2019 07:02 AM Pathologist: Liset Freeman MD Specimens: A) - Skin, left chest B) - Skin, right hand 0 5:09 PM CHANGE MANAGEMENT LEAD DERMATOPATHOLOGY LABORATORY Final Diagnosis Specimen A. SKIN, left chest: BASAL CELL CARCINOMA, NODULAR TYPE (C44.519) Specimen B. SKIN, right hand: BENIGN VERRUCOUS KERATOSIS, INFLAMED (L82.1) (see microscopic description) 0 5:09 PM [facility] DERMATOPATHOLOGY LABORATORY at [address] CHANGE MANAGEMENT LEAD Clinical History A-B: R/O NMSC. 0 5:09 PM [facility] DERMATOPATHOLOGY LABORATORY Gross Description Specimen A: Received is one formalin filled container labeled with the patient's name and designated left chest. The specimen consists of a shave (2 pieces) measuring 7z0i6hn & 0a2s8ty. Jar 0. Specimen B: Received is one formalin filled container labeled with the patient's name and designated right hand. The specimen consists of a shave measuring 5l9h2zk. Jar 0. 0 5:09 PM [facility] DERMATOPATHOLOGY LABORATORY Microscopic [...] were obtained and reviewed. 0 5:09 PM [facility] DERMATOPATHOLOGY LABORATORY Disclaimer An external and internal positive and negative controls are appropriate for the histochemical, immunohistochemical and immunofluorescence stain(s) in this case (if any), except where stated explicitly. The performance characteristics of the stain(s) cited in this report were developed and its performance characteristic determined by the Dermatopathology Laboratory at [facility], directed by Dr. Miya Peralta. These tests need not be, and therefore are not, approved by the [place] Food and Drug Administration. The tests are used for clinical purposes. Billing Codes Specimen Charges Stain Charges 00482 85215 1 1 0 5:09 PM [facility] DERMATOPATHOLOGY LABORATORY Embedded Images 0 5:09 PM [facility] DERMATOPATHOLOGY LABORATORY Pathology/Cytology TISSUE SPECIMEN FROM SKIN / Unknown 04/04/2019 04/05/2019 7:02 AM CHANGE MANAGEMENT LEAD Miscellaneous samples (specimen) TISSUE SPECIMEN FROM SKIN / Unknown 04/04/2019 04/05/2019 7:02 AM CHANGE MANAGEMENT LEAD Carol Meyers DO LAB - PATHOLOGY/CYTOLOGY ORDERABLES Final Result DERMATOPATHOLOGY LABORATORY [facility] - Department of Dermatology [facility] [facility], 5th Floor Lab B [address] [phone] documented in this encounter Visit Diagnoses Not on filedocumented in this encounter
--- OUTSIDE RECORDS SUMMARY | 2025-01-27 23:37 | XMS_ITS | Clinical Summary ---
Author Organization [facility] Address [address] [facility] [place] [address] Care Team Providers Care Soyfreeze Operator Name Role Phone Unavailable Primary Care Provider Unavailabl e Source Comments [facility],non-owned Affiliates and Associated Physician Practices is amultiple site organization consisting of ambulatory clinics and hospital sitesin [place], [place], [place] and [place]. This disclosure is being madepursuant to the Care Everywhere program and may not contain all information available regarding this patient. Last updated 17.[facility] Encounters Date Type Department Care Team Description 11/15/2024 Lab Requisition [facility]ician [facility] - DermPath Lab [address] [facility] [place] [address] Carol Meyers DO Neoplasm of uncertain behavior of skin from Last 3 Months Social History Tobacco Use Types Packs/Day Years Used Date Smoking Tobacco: Never Assessed Comments Unknown Sex and Gender Information Value Date Recorded Sex Assigned at Not on file Legal Sex Female 6:09 PM LABORER PIE BAKERY Gender Identity Not on file Sexual Orientation [...] PM CDT) Case Report Dermatopathology Report Case: [id number] Authorizing Provider: Carol Meyers DO Collected: 11/15/2024 01:00 PM Ordering Location: [facility] - Received: 11/16/2024 [...] characteristic determined by the Dermatopathology Laboratory at [facility], directed by Dr. Miya Peralta. These tests need not be, and therefore are not, approved by the [place] Food and Drug Administration. The tests are used for clinical purposes. Billing Codes Specimen Charges Stain Charges 13084 1 5 3:00 PM CDT DERMATOPATHOLOGY LABORATORY Embedded Images 5 3:00 PM CDT DERMATOPATHOLOGY LABORATORY Pathology/Cytolo gy TISSUE SPECIMEN FROM SKIN / Unknown 11/15/2024 1:00 PM CDT 11/16/2024 1:59 PM CDT Carol Meyers DO LAB - PATHOLOGY/CYTOLOGY ORDERABLES Final Result DERMATOPATHOLOGY LABORATORY [facility] - Department of Dermatology [address], [address] [phone] from Last 3 Months Insurance MEDICARE [facility] MEDICARE [facility]
--- OUTSIDE RECORDS SUMMARY | 2025-01-27 23:37 | XMS_ITS | Encounter Summary ---
Author Organization [facility] Address [address] [facility] [place] [address] Care Team Providers Care Cloth Tearer Name Role Phone Unavailable Primary Care Provider Unavailabl e Encounter Details Date Type Department Care Team (Late st Contact Info) Description 12/15/2023 Lab Requisition [facility] - DermPath Lab [address] [place], [facility] [place] [phone] Carol Meyers DO [address] [facility] 3 [place] [address] Social History Tobacco Use Types Packs/Day Years Used Date Smoking Tobacco: Never Assessed Comments Unknown Sex and Gender Information Value Date Recorded Sex Assigned at Not on file Legal Sex Female 6:09 PM CURRICULUM AND ASSESSMENT COORDINATOR Gender Identity Not on file Sexual Orientation Not on file documented as of this encounter Plan of Treatment Not on file documented as of this encounter Procedures Procedure Name Priority Date/Time Associated Diagnosis Comments DERMATOPATHOLOGY Routine 12/15/2023 11:3 8 AM CDT documented in this encounter Results * DERMATOPATHOLOGY (12/15/2023 11:38 AM CDT) Case Report Dermatopathology Report Case: [id number] Authorizing Provider: Carol Meyers DO Collected: 12/15/2023 11:38 AM Ordering Location: [facility] - Received: 12/15/2023 04:37 [...] of a non-oriented ellipse of skin measuring 46n15t5 mm. The epidermal surface is unremarkable. The [...] characteristic determined by the Dermatopathology Laboratory at [facility], directed by Dr. Miya Peralta. These tests need not be, and therefore are not, approved by the [place] Food and Drug Administration. The tests are used for clinical purposes. Billing Codes Specimen Charges Stain Charges 19615 1 4:05 PM CDT DERMATOPATHOLOGY LABORATORY Embedded Images 4:05 PM CDT DERMATOPATHOLOGY LABORATORY Pathology/Cytolo gy TISSUE SPECIMEN FROM SKIN / Unknown 12/15/2023 11:38 AM CDT 12/15/2023 4:37 PM CDT us Carol Meyers DO LAB - PATHOLOGY/CYTOLOGY ORDERABLES Final Result DERMATOPATHOLOGY LABORATORY [facility] - Department of Dermatology [address], [address] [phone] documented in this encounter Visit Diagnoses Not on filedocumented in this encounter
--- OUTSIDE RECORDS SUMMARY | 2025-01-27 23:37 | XMS_ITS | Encounter Summary ---
Author Organization [facility] Address [address] [facility] [place] [address] Care Team Providers Care Clinical Programmer Name Role Phone Unavailable Primary Care Provider Unavailabl e Encounter Details Date Type Department Care Team (Late st Contact Info) Description 12/10/2023 Lab Requisition [facility] - DermPath Lab [address] [facility] [place] [address] Carol Meyers DO [address] [facility] 3 [place] [address] Social History Tobacco Use Types Packs/Day Years Used Date Smoking Tobacco: Never Assessed Comments Unknown Sex and Gender Information Value Date Recorded Sex Assigned at Not on file Legal Sex Female 6:09 PM CONCESSION MANAGER Gender Identity Not on file Sexual Orientation Not on file documented as of this encounter Plan of Treatment Not on file documented as of this encounter Procedures Procedure Name Priority Date/Time Associated Diagnosis Comments DERMATOPATHOLOGY Routine 12/10/2023 8:16 AM CDT documented in this encounter Results * DERMATOPATHOLOGY (12/10/2023 8:16 AM CDT) Case Report Dermatopathology Report Case: [id number] Authorizing Provider: Carol Meyers DO Collected: 12/10/2023 08:16 AM Ordering Location: [facility] Physician [facility] - Received: 12/10/2023 03:41 PM DermPath Lab [...] chest.The specimen consists of an ellipse measuring 89t04n6 mm and is oriented with the suture/notch [...] purposes. Billing Codes Specimen Charges Stain Charges 14917 1 1:56 PM CDT DERMATOPATHOLOGY LABORATORY Embedded Images 1:56 PM CDT DERMATOPATHOLOGY LABORATORY Pathology/Cytolo gy TISSUE SPECIMEN FROM SKIN / Unknown 12/10/2023 8:16 AM CDT 12/10/2023 3:41 PM CDT us Carol Meyres DO LAB - PATHOLOGY/CYTOLOGY ORDERABLES Final Result DERMATOPATHOLOGY LABORATORY [facility] - Department of Dermatology [address], [address] Floor [place], [place] [address] [place] [address] documented in this encounter Visit Diagnoses Not on filedocumented in this encounter
--- OUTSIDE RECORDS SUMMARY | 2025-01-27 23:37 | XMS_ITS | Encounter Summary ---
Author Organization [facility] Address [address] [place] [address] Care Team Providers Care Loom Overhauler Name Role Phone Unavailable Primary Care Provider Unavailabl e Encounter Details Date Type Department Care Team (Late st Contact Info) Description 12/22/2023 Lab Requisition [facility] Physician Group - DermPath Lab [address] [facility], [facility] [place] [address] Carol Meyers DO [address] [facility] 3 [place] [address] Social History Tobacco Use Types Packs/Day Years Used Date Smoking Tobacco: Never Assessed Comments Unknown Sex and Gender Information Value Date Recorded Sex Assigned at Not on file Legal Sex Female 6:09 PM NETWORK OPERATIONS CENTER ENGINEER Gender Identity Not on file Sexual Orientation Not on file documented as of this encounter Plan of Treatment Not on file documented as of this encounter Procedures Procedure Name Priority Date/Time Associated Diagnosis Comments DERMATOPATHOLOGY Routine 12/22/2023 12:3 6 PM CDT documented in this encounter Results * DERMATOPATHOLOGY (12/22/2023 12:36 PM CDT) Case Report Dermatopathology Report Case: [id number] Authorizing Provider: Carol Meyers DO Collected: 12/22/2023 12:36 PM Ordering Location: [facility] Physician [facility] - Received: 12/22/2023 02:27 PM DermPath Lab [...] of a non-oriented ellipse of skin measuring 85l16t0 mm. The epidermal surface is unremarkable. The [...] purposes. Billing Codes Specimen Charges Stain Charges 20699 1 1:06 PM CDT DERMATOPATHOLOGY LABORATORY Embedded Images 1:06 PM CDT DERMATOPATHOLOGY LABORATORY Pathology/Cytolo gy TISSUE SPECIMEN FROM SKIN / Unknown 12/22/2023 12:36 PM CDT 12/22/2023 2:27 PM CDT us Carol Meyers DO LAB - PATHOLOGY/CYTOLOGY ORDERABLES Final Result DERMATOPATHOLOGY LABORATORY [facility] - Department of Dermatology [facility] Medicine [address] [place] [address], [address] [phone] documented in this encounter Visit Diagnoses Not on filedocumented in this encounter
--- OUTSIDE RECORDS SUMMARY | 2025-01-27 23:37 | XMS_ITS | Encounter Summary ---
Author Organization [facility] Address [address] [place] [address] Care Team Providers Care Web Project Manager Name Role Phone Unavailable Primary Care Provider Unavailabl e Encounter Details Date Type Department Care Team (Late st Contact Info) Description 11/17/2023 Lab Requisition [facility] Physician Group - DermPath Lab [address] [facility], [facility] [place] [address] Carol Meyers DO [address] [facility] 3 [place] [address] Social History Tobacco Use Types Packs/Day Years Used Date Smoking Tobacco: Never Assessed Comments Unknown Sex and Gender Information Value Date Recorded Sex Assigned at Not on file Legal Sex Female 6:09 PM VP LAB Gender Identity Not on file Sexual Orientation Not on file documented as of this encounter Plan of Treatment Not on file documented as of this encounter Procedures Procedure Name Priority Date/Time Associated Diagnosis Comments DERMATOPATHOLOGY Routine 11/17/2023 10:1 4 AM CDT documented in this encounter Results * DERMATOPATHOLOGY (11/17/2023 10:14 AM CDT) Case Report Dermatopathology Report Case: [id number] Authorizing Provider: Carol Meyers DO Collected: 11/17/2023 10:14 AM Ordering Location: [facility]ician Group - Received: 11/17/2023 03:11 [...] 5x5x1 mm. Jar 0. 4 6:07 PM [facility] DERMATOPATHOLOGY LABORATORY Microscopic Description Specimen A. SKIN, [...] determined by the Dermatopathology Laboratory at [facility], directed by Dr. Miya Peralta. These tests need not be, and therefore are not, approved by the [place] Food and Drug Administration. The tests are used for clinical purposes. Billing Codes Specimen Charges Stain Charges 85753 43086 32548 60535 1 1 1 1 4 6:07 PM [...] ORDERABLES Edited Result - Final DERMATOPATHOLOGY LABORATORY [facility] - Department of Dermatology [address], [address] [place] [address], [facility] [phone] documented in this encounter Visit Diagnoses Not on filedocumented in this encounter
--- OUTSIDE RECORDS SUMMARY | 2025-01-27 23:37 | XMS_ITS | Clinical Summary ---
Author Organization [facility] Address [facility] [place] [address] Care Team Providers Care Canceling Machine Operator Name Role Phone Rachiddominga Savanah Herminio [facility] Primary Care Provider [phone] Allergies Active Allergy Reactions Criticality Noted Date [...] this topic Medical Devices Implanted Type Area Manager Product Management Device Identifier Shelf Expiration Date Model / Serial / Lot Tecnis 1-Piece Iol With Tecnis Simplicity Delivery System Implanted:Qty: 1 on 06/20/2024 by Enrique Roman MD at [facility] Lens Left: Eye [employer] 11/11/2025 / / [id number] Insurance [facility] MEDICARE Care Teams Canceling Machine Operator Relationship Specialty Start Date End Date Savanah Curran, MATTHE[facility] [address] [place] [address] PCP - General CLINICAL NURSE SPECIALIST 06/20/24
--- OUTSIDE RECORDS SUMMARY | 2025-01-27 23:37 | XMS_ITS | Encounter Summary ---
Author Organization [facility] Address [address] [place] [address] Care Team Providers Care Poultry Breeder Name Role Phone Unavailable Primary Care Provider Unavailabl e Encounter Details Date Type Department Care Team (Late st Contact Info) Description 03/25/2023 Lab Requisition [facility] - DermPath Lab [address], [facility] [place] [address] Peggy Alba MD [address] [facility] [address] [place] [address] Social History Tobacco Use Types Packs/Day Years Used Date Smoking Tobacco: Never Assessed Comments Unknown Sex and Gender Information Value Date Recorded Sex Assigned at Not on file Legal Sex Female 6:09 PM [employer] Gender Identity Not on file Sexual Orientation Not on file documented as of this encounter Plan of Treatment Not on file documented as of this encounter Procedures Procedure Name Priority Date/Time Associated Diagnosis Comments DERMATOPATHOLOGY Routine 03/25/2023 10:1 6 AM [employer] documented in this encounter Results * DERMATOPATHOLOGY (03/25/2023 10:16 AM [employer]) Case Report Dermatopathology Report Case: [id number] Authorizing Provider: Peggy Alba MD Collected: 03/25/2023 10:16 AM Ordering Location: [facility] DermPath Lab Received: 03/26/2023 10:51 AM Pathologist: Jenniffer Chen MD Specimen: Skin, left ant thigh 1:23 PM [employer] DERMATOPATHOLOGY LABORATORY Final Diagnosis Specimen A. SKIN, left ant thigh: SQUAMOUS CELL CARCINOMA IN SITU, PRESENT AT THE BASE OF THE SPECIMEN (D04.72) (see microscopic description and comment) 1:23 PM [employer] DERMATOPATHOLOGY LABORATORY at [address] [employer] Clinical History HAK vs. SCC 4 1:23 PM [facility] DERMATOPATHOLOGY LABORATORY Gross Description Specimen A: Received is one formalin filled container labeled with the patient's name and designated left ant thigh. The specimen consists of a shave biopsy measuring 6x5x1 mm. Jar 0. 4 1:23 PM [facility] DERMATOPATHOLOGY LABORATORY Microscopic Description Specimen A. SKIN, left ant thigh: The epidermis shows parakeratosis, full thickness disorderly maturation of keratinocytes, mitoses at different levels, and dyskeratotic cells. The lesion broadly extends to the base of the biopsy. COMMENT: An invasive squamous cell carcinoma cannot be ruled out. 4 1:23 PM [facility] DERMATOPATHOLOGY LABORATORY Disclaimer An external and internal positive and negative controls are appropriate for the histochemical, immunohistochemical and immunofluorescence stain(s) in this case (if any), except where stated explicitly. The performance characteristics of the stain(s) cited in this report were developed and its performance characteristic determined by the Dermatopathology Laboratory at [facility], directed by Dr. Miya Peralta. These tests need not be, and therefore are not, approved by the [place] Food and Drug Administration. The tests are used for clinical purposes. Billing Codes Specimen Charges Stain Charges 74133 1 4 1:23 PM [facility] DERMATOPATHOLOGY LABORATORY Embedded Images 4 1:23 PM [facility] DERMATOPATHOLOGY LABORATORY Pathology/Cytolo gy TISSUE SPECIMEN FROM SKIN / Unknown 03/25/2023 10:16 AM [employer] 03/26/2023 10:51 AM [facility] Peggy Alba MD LAB - PATHOLOGY/CYTOLOGY OR DERABLES Final Result DERMATOPATHOLOGY LABORATORY [facility] - Department of Dermatology [address], [address] [phone] documented in this encounter Visit Diagnoses Not on filedocumented in this encounter
--- OUTSIDE RECORDS SUMMARY | 2025-01-27 23:37 | XMS_ITS | Clinical Summary ---
Author Organization [facility] [address] Address [address] [place] [address] Care Team Providers Care Baker Biscuit Name Role Phone Avni Shah MD Primary Care Provider [phone] Allergies Active Allergy Reactions Criticality Noted Date [...] 1 tablet (75 mcg total) by mouth fuel testing technician before breakfast 03/09/19 25 Active atenoloL (TENORMIN) 50 mg tabletIndications: Coronary artery disease involving [place] coronary artery of [place] heart without angina pectoris,Essential hypertension, benign Take 1 tablet (50 mg total) by mouth 2 (two) times a day 180 tablet 3 04/18/19 25 Active amLODIPine (NORVASC) 5 mg tablet Take 1 tablet (5 mg total) by mouth daily 90 tablet 3 04/18/19 25 026 Active Active Problems Problem Noted Date Diagnosed Date Nonrheumatic tricuspid valve regurgitation 03/26 Coronary artery disease invo lving [place] coronary artery of [place] heart without angina pectoris 03/22/2018 Mixed hyperlipidemia 09/08/2016 Assessment & Plan (03/16/2017 11:47 AM FRETTED INSTRUMENT REPAIRER): I advised patient to get 12 hour [...] 09/08/2016 Assessment & Plan (03/16/2017 11:47 AM FRETTED INSTRUMENT REPAIRER): She was advised to keep blood pressure [...] are within normal. When patient presented to [facility] with the CA her potassium was very low. Currently she [...] artery Assessment & Plan (03/16/2017 11:46 AM FRETTED INSTRUMENT REPAIRER): Continue aspirin, Plavix, atorvastatin. Assessment & Plan (09/08/2016 12:38 PM CDT): Status post drug-eluting stent to the RCA. Continue aspirin and Brilinta. Continue cardiac rehabilitation. Encounters Date Type Department Care Team Description 12/30/2024 11:29 AM FRETTED INSTRUMENT REPAIRER - 12/30/2024 11:59 PM FRETTED INSTRUMENT REPAIRER Hospital Encounter [facility] [address] [place] [address] Screening mammogram, encounter for Discharge Disposition: Discharge [...] Comments Blood Pressure 138/62 04/18/2024 9:33 AM FRETTED INSTRUMENT REPAIRER Pulse 62 04/18/2024 9:33 AM FRETTED INSTRUMENT REPAIRER Temperature 36.3 C (97.3 F) 04/30/2020 8:16 AM FRETTED INSTRUMENT REPAIRER Respiratory Rate 14 09/08/2016 11:49 AM CDT Oxygen Saturation 96% 04/18/2024 9:33 AM FRETTED INSTRUMENT REPAIRER Inhaled Oxygen Concentration - - Weight 72.1 kg (159 lb) 04/18/2024 9:33 AM FRETTED INSTRUMENT REPAIRER Height 160 cm (5' 3) 04/18/2024 9:33 AM FRETTED INSTRUMENT REPAIRER Body Mass Index 28.17 04/18/2024 9:33 AM FRETTED INSTRUMENT REPAIRER Plan of Treatment Health Maintenance Due Date [...] Read Routine (OP Routine) 12/30/2024 11:43 AM FRETTED INSTRUMENT REPAIRER Screening mammogram, encounter for from Last 3 Months Results * Screening Mammogram Bilateral W Efrem (12/30/2024 11:43 AM FRETTED INSTRUMENT REPAIRER) Anatomical Region Laterality Modality Breast Bilateral Mammography Impressions 01/05/2025 2:15 PM FRETTED INSTRUMENT REPAIRER Bilateral No evidence of malignancy in either breast. OVERALL BI-RADS FINAL ASSESSMENT: 1 - Negative RECOMMENDATION: Recommend bilateral annual screening mammography. Decision to continue screening mammography should be made based on clinical factors. Narrative 01/05/2025 2:15 PM FRETTED INSTRUMENT REPAIRER EXAMINATION: Screening Mammogram Bilateral W Efrem: 12/30/2024 [...] MEDICARE BLUE CROSS MEDICARE SUPPLEMENT Care Teams Baker Biscuit Relationship Specialty Start Date End Date Avni Shah MD PCP - General Family Medicine 03/24/22
--- NOTE | 2025-01-28 00:01 | ED.SOB ---
HPI - SOB/Dyspnea General Chief Complaint: Shortness of Breath/Dyspnea <Elo Rodriguez APRN - Last Filed: 01/28/25 04:15> Stated Complaint: SOB-having problems breathing. <Elo Rodriguez APRN - Last Filed: 01/28/25 04:15> Time Seen by Provider: 01/27/25 23:16 <Elo Rodriguez APRN - Last Filed: 01/28/25 04:15> History of Present Illness HPI Narrative: Patient is an 85-year-old female who presents to the ER with complaints of shortness of breath. She reports she has been experiencing seasonal allergies since November. Patient reports she has been seen by her keyliner put her on a Z-Dat and steroids. She reports she also went to urgent care recently with no further diagnosis. Patient reports her shortness of breath exacerbated around 3:00 p.m. this afternoon. She denies any chest pain, lower extremity edema, or recent fevers. Patient denies any history of congestive heart failure. She endorses a history blood pressure, myocardial infarction, hyperlipidemia, and hypothyroidism. <Elo Rodriguez APRN - Last Filed: 01/28/25 04:15> Related Data Home Medications: Home Medications ?Medication ?Instructions ?Recorded ?Confirmed ?Last Taken ?Type aspirin 81 mg tablet,delayed 81 mg PO DAILY 01/11/19 01/26/25 Unknown History release atorvastatin 40 mg tablet 40 mg PO DAILY 01/11/19 01/26/25 Unknown History cetirizine 10 mg tablet (Zyrtec) 5 mg PO DAILY PRN Allergy Symptoms 01/11/19 01/26/25 Unknown History fluticasone propionate 50 See Rx Instructions intranasal 01/11/19 01/26/25 Unknown History mcg/actuation nasal DAILY spray,suspension fluticasone fur. 100 mcg-umeclid 1 inh inhalation DAILY 09/26/20 01/26/25 Unknown History 62.5 mcg-vilant 25 mcg inhalat.powder (Trelegy Ellipta) cholecalciferol (vitamin D3) 125 125 mcg PO DAILY 08/04/23 01/26/25 Unknown History mcg (5,000 unit) capsule lutein 6 mg capsule 6 mg PO DAILY 08/04/23 01/26/25 Unknown History mecobalamin (vitamin B12) 1,000 1,000 mcg PO DAILY 08/04/23 01/26/25 Unknown History mcg chewable tablet (B12 Active) pyridoxine (vitamin B6) 10 mg 10 mg PO DAILY 08/04/23 01/26/25 Unknown History tablet vitamin E (dl, acetate) 90 mg (200 90 mg PO DAILY 08/04/23 01/26/25 Unknown History unit) capsule amlodipine 5 mg tablet 5 mg PO DAILY 01/11/24 01/26/25 Unknown History ipratropium bromide 21 mcg (0.03 2 spray intranasal DAILY 09/13/24 01/26/25 Unknown History %) nasal spray <Elo Rodriguez APRN - Last Filed: 01/28/25 04:15> Allergies/Adverse Reactions: Allergies Allergy/AdvReac Type Severity Reaction Status Date / Time alendronate sodium Allergy Unknown upset Verified 01/26/25 13:42 stomach erythromycin base Allergy Unknown Nausea Verified 01/26/25 13:42 Sulfa (Sulfonamide Allergy Unknown Pt does Verified 01/26/25 13:42 Antibiotics) not remember reaction <Elo Rodriguez APRN - Last Filed: 01/28/25 04:15> Review of Systems Review of Systems: All systems reviewed & are unremarkable except as noted in HPI and below <Elo Rodriguez APRN - Last Filed: 01/28/25 04:15> [facility] Past Medical History Medical History: Medical History Pre-operative clearance Encounter to establish care Hospital discharge follow-up Lightheadedness Degeneration of lumbar or lumbosacral intervertebral disc Headache Cataract Orthostatic hypotension Hypothyroid Arthritis GERD (gastroesophageal reflux disease) Bronchitis Asthma HLD (hyperlipidemia) HTN (hypertension) History of angina CAD (coronary artery disease) Myocardial infarction CVA (cerebral vascular accident) <Elo Rodriguez APRN - Last Filed: 01/28/25 04:15> Surgical History Surgical History: Surgical History H/O heart artery stent H/O cardiac catheterization <Elo Rodriguez APRN - Last Filed: 01/28/25 04:15> Family History Family History: Family History Father Family history of cardiovascular disease Mother Family history of cardiovascular disease Other Cerebrovascular accident Family history of allergic disorder <Elo Rodriguez APRN - Last Filed: 01/28/25 04:15> Social History Social History: Social History Smoking status: Never smoker Alcohol intake: current Alcohol use details: occasionally Substance use type: does not use Lack of Transportation: No Lack of Food: Never True Current Housing: I Have Housing Concerned About Future Housing: No Difficulty Paying Gas/Electric Bills: No Difficulty Paying for Meds: No Currently Unemployed: No Education: High School Diploma/GED Difficulty w/ Childcare or Family Care: No <Elo Rodriguez APRN - Last Filed: 01/28/25 04:15> Exam Narrative: GENERAL: Well appearing, well-nourished, non-toxic, in no acute distress. HEAD: Normocephalic, atraumatic. NECK: Supple. No adenopathy, no masses. RESPIRATORY: Airway patent, respirations nonlabored. Clear to auscultation bilaterally, no rales, rhonchi, wheezing. + Dyspnea with exertion CARDIOVASCULAR: regular rhythm with + murmur, rubs, or gallops. Peripheral pulses 2+ and equal bilaterally. No lower extremity edema. ABDOMINAL: Soft, nontender, nondistended, no hepatosplenomegaly. Normoactive BS. MUSCULOSKELETAL: Moves all extremities. Strength/ROM intact without gross deformities. SKIN: Warm, dry, normal color. No rashes. NEURO: A&O X3. Speech clear. Cranial nerves II-XII intact. No ataxic movements. PSYCHIATRIC: Appropriate mood and affect. Normal interaction. <Elo Rodriguez APRN - Last Filed: 01/28/25 04:15> Course Course Emergency Course: Patient signed out to me by the midlevel pending CT. Patient has a new oxygen requirement is she desaturated to 88% in room air and is currently on 1 L supplemental oxygen saturating 95-98%. 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 Small patchy infiltrates bilaterally in the right upper lobe and left lung base, cannot exclude pulmonary infarcts versus pneumonia. Mildly dilated right ventricle consistent with right heart strain. Mild cardiomegaly. Coronary artery calcifications. No thoracic aortic aneurysm or dissection is present. Mild bilateral dependent atelectasis. 5 mm noncalcified left upper lobe nodule. 5 mm left upper lobe peripheral calcifications/granuloma. No pleural effusion or pneumothorax. No acute fracture is identified. Degenerative changes of the thoracic spine. Limited images of the upper abdomen demonstrates splenic calcifications/granulomas. Partially fatty replaced pancreas. Patient and family informed of results and plan of care, heparin has been ordered, patient notes preference for [facility], [facility] access line contacted. Patient accepted for transfer, ER to ER by Dr. Maher. <Beto Veronica DO - Last Filed: 01/28/25 05:34> HISTORIAN RESEARCH ASSISTANT/PA Physician Supervision This visit was performed by both a physician and an APC. I performed all aspects of the MDM as documented. <Beto Veronica DO - Last Filed: 01/28/25 05:34> Vital Signs Vital signs: Vital Signs Temperature 97.1 F L 01/27/25 19:58 Pulse Rate 62 01/27/25 19:58 Respiratory Rate 18 01/27/25 19:58 Blood Pressure 116/60 01/27/25 19:58 Pulse Oximetry 93 01/27/25 19:58 Temperature 98.0 F 01/28/25 02:05 Pulse Rate 84 01/28/25 02:05 Respiratory Rate 22 H 01/28/25 02:05 Blood Pressure 137/67 01/28/25 02:05 Pulse Oximetry 93 01/28/25 03:23 Oxygen Delivery Nasal Cannula 01/28/25 03:23 Oxygen Flow Rate 1 01/28/25 03:23 <Elo Rodriguez, [employer]ER OPERATOR - Last Filed: 01/28/25 04:15> Vital Signs Temperature 97.1 F L 01/27/25 19:58 Pulse Rate 62 01/27/25 19:58 Respiratory Rate 18 01/27/25 19:58 Blood Pressure 116/60 01/27/25 19:58 Pulse Oximetry 93 01/27/25 19:58 Temperature 98.0 F 01/28/25 02:05 Pulse Rate 84 01/28/25 02:05 Respiratory Rate 22 H 01/28/25 02:05 Blood Pressure 137/67 01/28/25 02:05 Pulse Oximetry 93 01/28/25 03:23 Oxygen Delivery Nasal Cannula 01/28/25 03:23 Oxygen Flow Rate 1 01/28/25 03:23 <Beto Veronica, DO - Last Filed: 01/28/25 05:34> [facility] MDM Narrative Medical decision making narrative: Patient is an 85-year-old female who presents to the ER with complaints of shortness of breath. She reports she has been experiencing seasonal allergies since November. Patient reports she has been seen by her keyliner put her on a Z-Dat and steroids. She reports she also went to urgent care recently with no further diagnosis. Patient reports her shortness of breath exacerbated around 3:00 p.m. this afternoon. She denies any chest pain, lower extremity edema, or recent fevers. Patient denies any history of congestive heart failure. Labs Ordered: CBC, CMP, proBNP, magnesium, PTT, INR, UA, COVID/ flu /RSV Imaging Ordered: chest x-ray Medications Ordered: DuoNeb, Lasix 40 mg IV Results: Patient's chest x-ray indicates The lungs are clear. The cardiomediastinal silhouette is within normal limits. There are no pleural effusions. There is no pneumothorax suspected. Diagnosis: new onset CHF, CHF exacerbation Consults: 0300- Spoke with Dr. Acosta, who requests pt have a CT scan before she is admitted to the hospital. He also would like pt to have a full respiratory panel sent for evaluation. PERC Rule for Pulmonary Embolism from [email or web address] on 01/28/2025 All calculations should be rechecked by clinician prior to use RESULT SUMMARY: 2 criteria If any criteria are positive, the PERC rule cannot be used to rule out PE in this patient. INPUTS: Age >=0 ?> 1 = Yes HR >=00 ?> 0 = No O? sat on room air <95% ?> 1 = Yes Unilateral leg swelling ?> 0 = No Hemoptysis ?> 0 = No Recent surgery or trauma ?> 0 = No Prior PE or DVT ?> 0 = No Hormone use ?> 0 = No 0400- Care signed out to Dr. Veronica pending CT scan results. <Elo CastilloHarpal Rodriguez APRN - Last Filed: 01/28/25 04:15> Differential Diagnosis Differential Diagnosis: asthma attack, pneumonia, CHF exacerbation, viral infection <Elo CastilloHarpal Rodriguez APRN - Last Filed: 01/28/25 04:15> Lab Data MDM Lab Attestation statement: I personally reviewed the patient's lab results. <Elo Noam Rodriguez APRN - Last Filed: 01/28/25 04:15> Result diagrams: 01/27/25 20:06 01/27/25 20:06 <Elo Santacruz MARY Rodriguez - Last Filed: 01/28/25 04:15> Labs: Lab Results 01/27/25 01/28/25 Range/Units 20:06 02:57 WBC 13.0 H (4.5-10.0) K/mm3 RBC 4.67 (4.2-5.4) M/mm3 Hgb 13.3 (12.0-15.0) g/dL Hct 42.3 (37.0-47.0) % MCV 90.6 (80-100) fl MCH 28.5 (26-34) pg MCHC 31.4 L (32-36) g/dl RDW 15.9 H (11.5-14.5) % Plt Count 294 (150-375) k/mm3 MPV 10.2 (7.4-10.4) fl Immature Gran % (Auto) 0.8 H (0-0.5) % Neut % (Auto) 79.6 H (45.5-73.1) % Lymph % (Auto) 8.6 L (18.3-44.2) % [place] % (Auto) 7.9 (2.6-8.5) % Eos % (Auto) 2.6 (0-4.4) % Baso % (Auto) 0.5 (0.2-1.2) % Lymph # (Auto) 1.12 (0.9-3.2) K/mm3 [place] # (Auto) 1.0 H (0.1-0.6) K/mm3 Eos # (Auto) 0.3 (0-0.3) K/mm3 Baso # (Auto) 0.1 (0.0-0.1) K/mm3 Abs Immat Gran (auto) 0.11 H (0.00-0.031) K/mm3 Absolute Neuts (auto) 10.3 H (1.3-6.7) K/mm3 Absolute Nucleated RBC 0.000 (0.0-0.012) K/mm3 Nucleated RBC % 0.0 (0.0-0.2) % PT 14.0 (11.1-14.7) Seconds INR 1.1 APTT 34.1 (22.3-36.8) Seconds Sodium 140 (137-145) mmol/L Potassium 4.1 (3.4-5.0) mmol/L Chloride 112 H (98-107) mmol/L Carbon Dioxide 21 L (22-30) mmol/L Anion Gap 7 (4-12) mmol/L BUN 16 (7-17) mg/dL Creatinine 1.37 H (0.7-1.0) mg/dL Estim Creat Clear Calc 23 ml/min Estimated GFR 37 L (59 - ) Glucose 128 H (65-110) mg/dL Calcium 8.7 (8.4-10.2) mg/dL Magnesium 2.1 (1.6-2.3) mg/dL Total Bilirubin 0.7 (0.2-1.3) mg/dL AST 54 H (14-36) U/L ALT 39 H (6-35) U/L Alkaline Phosphatase 159 H (38-126) U/L NT-Pro-B Natriuret Pep 2400 H (19.9-100) pg/mL Total Protein 7.7 (6.3-8.2) g/dL Albumin 4.3 (3.5-5.1) g/dL Urine Color Yellow (Yellow) Urine Appearance Clear (Clear) Urine pH 6.0 (5.0-9.0) Ur Specific [place] 1.014 (1.001-1.035) Urine Protein Trace (Negative) mg/dL Urine Glucose (UA) Negative (Negative) mg/dL Urine Ketones Negative (Negative) mg/dL Ur Blood (Man) Negative (Negative) Urine Nitrate Negative (Negative) Urine Bilirubin Negative (Negative) Urine Urobilinogen 0.2 (<2.0) mg/dL Leukocyte Esterase Rfl 3+ H (Negative) MONTSE/UL Urine RBC 0-2 (0-2) /hpf Urine WBC 51-100 H (0-3) /hpf Ur Squamous Epith Cells None seen (Few) /hpf Urine Bacteria None seen /hpf Urine Casts 0-2 Influenza A (RT-PCR) Negative (Negative) Influenza B (RT-PCR) Negative (Negative) RSV (RT-PCR) Negative (Negative) SARS-CoV-2 RNA (RT-PCR) Negative (Negative) <Elo Rodriguez, [employer] POLISHER OPERATOR - Last Filed: 01/28/25 04:15> Lab Results 01/27/25 01/28/25 Range/Units 20:06 02:57 WBC 13.0 H (4.5-10.0) K/mm3 RBC 4.67 (4.2-5.4) M/mm3 Hgb 13.3 (12.0-15.0) g/dL Hct 42.3 (37.0-47.0) % MCV 90.6 (80-100) fl MCH 28.5 (26-34) pg MCHC 31.4 L (32-36) g/dl RDW 15.9 H (11.5-14.5) % Plt Count 294 (150-375) k/mm3 MPV 10.2 (7.4-10.4) fl Immature Gran % (Auto) 0.8 H (0-0.5) % Neut % (Auto) 79.6 H (45.5-73.1) % Lymph % (Auto) 8.6 L (18.3-44.2) % [place] % (Auto) 7.9 (2.6-8.5) % Eos % (Auto) 2.6 (0-4.4) % Baso % (Auto) 0.5 (0.2-1.2) % Lymph # (Auto) 1.12 (0.9-3.2) K/mm3 [place] # (Auto) 1.0 H (0.1-0.6) K/mm3 Eos # (Auto) 0.3 (0-0.3) K/mm3 Baso # (Auto) 0.1 (0.0-0.1) K/mm3 Abs Immat Gran (auto) 0.11 H (0.00-0.031) K/mm3 Absolute Neuts (auto) 10.3 H (1.3-6.7) K/mm3 Absolute Nucleated RBC 0.000 (0.0-0.012) K/mm3 Nucleated RBC % 0.0 (0.0-0.2) % PT 14.0 (11.1-14.7) Seconds INR 1.1 APTT 34.1 (22.3-36.8) Seconds Sodium 140 (137-145) mmol/L Potassium 4.1 (3.4-5.0) mmol/L Chloride 112 H (98-107) mmol/L Carbon Dioxide 21 L (22-30) mmol/L Anion Gap 7 (4-12) mmol/L BUN 16 (7-17) mg/dL Creatinine 1.37 H (0.7-1.0) mg/dL Estim Creat Clear Calc 23 ml/min Estimated GFR 37 L (59 - ) Glucose 128 H (65-110) mg/dL Calcium 8.7 (8.4-10.2) mg/dL Magnesium 2.1 (1.6-2.3) mg/dL Total Bilirubin 0.7 (0.2-1.3) mg/dL AST 54 H (14-36) U/L ALT 39 H (6-35) U/L Alkaline Phosphatase 159 H (38-126) U/L NT-Pro-B Natriuret Pep 2400 H (19.9-100) pg/mL Total Protein 7.7 (6.3-8.2) g/dL Albumin 4.3 (3.5-5.1) g/dL Urine Color Yellow (Yellow) Urine Appearance Clear (Clear) Urine pH 6.0 (5.0-9.0) Ur Specific [place] 1.014 (1.001-1.035) Urine Protein Trace (Negative) mg/dL Urine Glucose (UA) Negative (Negative) mg/dL Urine Ketones Negative (Negative) mg/dL Ur Blood (Man) Negative (Negative) Urine Nitrate Negative (Negative) Urine Bilirubin Negative (Negative) Urine Urobilinogen 0.2 (<2.0) mg/dL Leukocyte Esterase Rfl 3+ H (Negative) MONTSE/UL Urine RBC 0-2 (0-2) /hpf Urine WBC 51-100 H (0-3) /hpf Ur Squamous Epith Cells None seen (Few) /hpf Urine Bacteria None seen /hpf Urine Casts 0-2 Influenza A (RT-PCR) Negative (Negative) Influenza B (RT-PCR) Negative (Negative) RSV (RT-PCR) Negative (Negative) SARS-CoV-2 RNA (RT-PCR) Negative (Negative) <Beto Veronica DO - Last Filed: 01/28/25 05:34> Imaging Data Radiologist's impression: ITS Impressions Chest X-Ray 01/27/25 20:36 IMPRESSION: 1: NO ACUTE CARDIOPULMONARY DISEASE. <Elo Rodriguez, [employer] POLISHER OPERATOR - Last Filed: 01/28/25 04:15> ITS Impressions Chest X-Ray 01/27/25 20:36 IMPRESSION: 1: NO ACUTE CARDIOPULMONARY DISEASE. <Beto Veronica DO - Last Filed: 01/28/25 05:34> Critical Care Time Critical Care Time Critical Care Time: Yes <Beto Veronica DO - Last Filed: 01/28/25 05:34> Indication: Pulmonary embolism, cardiac failure, pulmonary failure <Beto Veronica DO - Last Filed: 01/28/25 05:34> Time Type: Intermittent <Beto Veronica DO - Last Filed: 01/28/25 05:34> Initial evaluation, discuss w/ involved parties, attempting to gather old records: 10 minutes <Beto Veronica DO - Last Filed: 01/28/25 05:34> Documenting medical record: 5 minutes <Beto Veronica DO - Last Filed: 01/28/25 05:34> Review of results (EKG's, labs, imaging): 5 minutes <Beto Veronica DO - Last Filed: 01/28/25 05:34> Serial repeat bedside evaluation: 10 minutes <Beto Veronica DO - Last Filed: 01/28/25 05:34> Discussing case with multiple memebers of the care team and consultants: 10 minutes <Beto Veronica DO - Last Filed: 01/28/25 05:34> Total Critical Care Time: 40 <Beto Veronica DO - Last Filed: 01/28/25 05:34> Discharge Plan Discharge Clinical Impression: Pulmonary embolism with acute cor pulmonale, Hypoxia, Dyspnea <Elo Santacruz MARY Rodriguez - Last Filed: 01/28/25 04:15> Patient Disposition: Acute Care Hospital <Elo Santacruz MARY Rodriguez - Last Filed: 01/28/25 04:15> Condition: Critical <Elobrennon Rodriguez APRN - Last Filed: 01/28/25 04:15> Patient Language: Arabic <Elo Santacruz MARY Rodriguez - Last Filed: 01/28/25 04:15> Prescriptions: No Action albuterol sulfate [ProAir HFA] 90 mcg/actuation HFA aerosol inhaler 2 puff INHALATION Q4H PRN (Reason: Shortness Of Breath) Qty: 8.5 1RF Patient Comments: . lutein 6 mg capsule 6 mg PO DAILY Rx Instructions: give with meal/snack mecobalamin (vitamin B12) [B12 Active] 1,000 mcg tablet,chewable 1,000 mcg PO DAILY vitamin E (dl, acetate) 90 mg (200 unit) capsule 90 mg PO DAILY pyridoxine (vitamin B6) 10 mg tablet 10 mg PO DAILY cholecalciferol (vitamin D3) 125 mcg (5,000 unit) capsule 125 mcg PO DAILY amlodipine 5 mg tablet 5 mg PO DAILY levothyroxine 75 mcg tablet 75 mcg PO DAILY Qty: 90 3RF atenolol 50 mg tablet 50 mg PO BID Qty: 180 1RF ipratropium bromide 21 mcg (0.03 %) spray,non-aerosol 2 spray intranasal DAILY cetirizine [Zyrtec] 10 mg tablet 5 mg PO DAILY PRN (Reason: Allergy Symptoms) atorvastatin 40 mg tablet 40 mg PO DAILY aspirin 81 mg tablet,delayed release (DR/EC) 81 mg PO DAILY fluticasone propionate 50 mcg/actuation spray,suspension See Rx Instructions NASAL DAILY Rx Instructions: 1-2 sprays intranasal daily; Trelegy Ellipta 100-62.5-25 mcg blister with device 1 inh inhalation DAILY Prolia 60 mg/mL syringe 60 mg subcut [id number] Qty: 1 3RF pantoprazole 40 mg tablet,delayed release (DR/EC) See Rx Instructions .ROUTE .COMPLEX Qty: 90 1RF Dose Instruction: TAKE 1 TABLET BY MOUTH IN THE MORNING Rx Instructions: TAKE 1 TABLET BY MOUTH IN THE MORNING valsartan 160 mg tablet 320 mg PO DAILY Qty: 180 1RF <Elo Rodriguez APRN - Last Filed: 01/28/25 04:15> Follow-up/Referrals: Norman Almonte DO [Primary Care Provider, Internal Medicine] <Elo Rodriguez APRN - Last Filed: 01/28/25 04:15> Time of Disposition: 05:34 <Elo Rodriguez APRN - Last Filed: 01/28/25 04:15> 05:34 <Beto Veronica DO - Last Filed: 01/28/25 05:34>
[2025-01-28 00:19] VITALS: PULSE 69; RESP 18
[2025-01-28] MEDS: IPRATROPIUM 0.5 MG/ALBUTEROL SULFATE 2.5 MG (BASE) AMPUL.NEB 3 ML INHALATION ×3 (00:19→00:28)
[2025-01-28 00:30] LABS: INR 1.1; Prothrombin Time 14.0 Seconds (11.1-14.7)
[2025-01-28 00:31] LABS: Partial Thromboplastin Time 34.1 Seconds (22.3-36.8)
[2025-01-28 00:38] LABS: Magnesium 2.1 mg/dL (1.6-2.3)
[2025-01-28 00:48] LABS: NT Pro B Type Natriuretic Pept 2400 pg/mL (19.9-100)
[2025-01-28] MEDS: FUROSEMIDE INJ 40 MG/4 ML VIAL IV PUSH (02:02)
[2025-01-28 02:05] VITALS: BP 137/67; PULSE 84; RESP 22; TEMP 36.7; O2SAT 95
[2025-01-28 02:06] VITALS: O2SAT 95
[2025-01-28 03:17] LABS: Add Urine Microscopic? YES; Appearance Urine Clear (Clear); Glucose Urine UA Negative (Negative); Leukocyte Esterase Ur 3+ LEU/UL (Negative); Nitrate Urine Negative (Negative); Non Pathogenic Casts 0-2; Specific Grav Ur 1.014 (1.001-1.035)
[2025-01-28 03:22] VITALS: O2SAT 88
[2025-01-28] MEDS: SODIUM CHLORIDE 0.9% IV 1,000 ML 500 ML IV CONT (03:22)
[2025-01-28 03:23] VITALS: O2SAT 93
--- NOTE | 2025-01-28 04:24 | PC.NURSE ---
This RN collected second set of blood cultures in pt right AC.
[2025-01-28] MEDS: cefTRIAXone 1 GM in SODIUM CHLORIDE 0.9% IV 50 ML 100 ML IVPB (04:32)
[2025-01-28] MEDS: HEPARIN SOD/D5W 100 UNITS/ML 25,000 UNITS/250 ML BAG 10 UNITS IV CONT (05:49)
[2025-01-28 06:18] VITALS: BP 131/77; PULSE 86; RESP 20; TEMP 36.8; O2SAT 98
== END 2025-01-28 06:20 | disposition short-term general hospital (02) ==
PROVIDERS: Registered Nurse; Emergency Provider Student in an Organized Health Care Education/Training Program; PCP Internal Medicine
DX: I26.09 Other pulmonary embolism with acute cor pulmonale (principal); R09.02 Hypoxemia; R06.00 Dyspnea, unspecified; Z20.822 Contact with and (suspected) exposure to COVID-19; I10 Essential (primary) hypertension; I25.2 Old myocardial infarction; I25.10 Atherosclerotic heart disease of native coronary artery without angina pectoris; E78.5 Hyperlipidemia, unspecified; E03.9 Hypothyroidism, unspecified; J45.909 Unspecified asthma, uncomplicated; K21.9 Gastro-esophageal reflux disease without esophagitis; M19.90 Unspecified osteoarthritis, unspecified site; Z86.73 Personal history of transient ischemic attack (TIA), and cerebral infarction without residual deficits; Z95.5 Presence of coronary angioplasty implant and graft; Z79.82 Long term (current) use of aspirin; Z79.899 Other long term (current) drug therapy; R94.31 Abnormal electrocardiogram [ECG] [EKG]
CPT/HCPCS: 36415; 71046; 71275; 80053; 81001; 83735; 83880; 85025; 85610; 85730; 87086; 87637; 93005; 94640; 96361; 96365; 96375; 99291; J0696; J1644; J1938; J7030; Q9967